=== PATIENT | female | born 1945 | race Caucasian/White ===

== ENCOUNTER 2016-06-04 09:00 | Outpatient (CLI) | payer MEDICARE | END 2016-06-04 09:01 | disposition home or self-care (01) | DX: I48.0 Paroxysmal atrial fibrillation (principal); E78.5 Hyperlipidemia, unspecified; I10 Essential (primary) hypertension; F17.200 Nicotine dependence, unspecified, uncomplicated; Z95.0 Presence of cardiac pacemaker; R60.0 Localized edema ==

== ENCOUNTER 2016-12-13 09:20 | Outpatient (CLI) | payer MEDICARE ==
[2016-12-13 12:54] LABS: ALBUMIN/GLOBULIN RATIO 0.9 (1.0-2.2); BILIRUBIN,TOTAL 0.3 mg/dL (0.2-1.0); CALCIUM 8.7 mg/dL (8.5-10.3); CREATININE 0.9 mg/dL (0.4-1.0); MAGNESIUM 2.2 mg/dL (1.7-2.8); POTASSIUM 4.2 mmol/L (3.5-5.0); TOTAL PROTEIN 7.1 g/dL (6.7-8.2)
== END 2016-12-13 09:21 | disposition home or self-care (01) ==
LOC: LAB.WCP 09:20
PROVIDERS: ATTEND Specialist
DX: R06.00 Dyspnea, unspecified (principal); E78.5 Hyperlipidemia, unspecified; F17.200 Nicotine dependence, unspecified, uncomplicated; Z95.0 Presence of cardiac pacemaker; R60.0 Localized edema; I27.2 Other secondary pulmonary hypertension; I47.2 Ventricular tachycardia
CPT/HCPCS: 36415; 80053; 83735; 84443

== ENCOUNTER 2017-01-17 13:03 | Outpatient (CLI) | payer MEDICARE | END 2017-01-17 13:04 | disposition EMS.NT | LOC: EMS 13:03 | PROVIDERS: ATTEND Surgery | DX: R19.7 Diarrhea, unspecified (principal) ==

== ENCOUNTER 2017-01-19 12:02 | Emergency (ER) | payer MEDICARE ==
[2017-01-19 14:15] LABS: BILIRUBIN,URINE NEGATIVE (NEGATIVE); PH,URINE 6.5 PH (5.0-7.5)
[2017-01-19 14:32] LABS: UA w/ MICROSCOPIC CHARGE YES
[2017-01-19 14:36] LABS: UR CULTURE IF IND NOT INDICATED
[2017-01-19] MEDS ORDERED: SODIUM CHLORIDE 0.9% 1,000 ML IV ONE (15:06)
[2017-01-19] MEDS ORDERED: SODIUM CHLORIDE FLUSH 0.9% 10 ML SYRINGE IVP ONE (15:15)
[2017-01-19 15:28] LABS: BASOPHILS % (AUTO) 0.7 %; EOSINOPHILS # (AUTO) 0.2 10^3/uL (0.0-0.7); EOSINOPHILS % (AUTO) 2.8 %; HCT - HEMATOCRIT 34.5 % (37.0-47.0); HGB - HEMOGLOBIN 11.4 g/dL (12.0-16.0); LYMPHOCYTES # (AUTO) 2.2 10^3/uL (1.5-3.5); MEAN CORPUSCULAR HEMOGLOBIN 25.4 pg (27.0-31.0); MEAN CORPUSCULAR VOLUME 76.9 fL (81.0-99.0); MEAN PLATELET VOLUME 8.1 fL (7.9-10.8); MONOCYTES # (AUTO) 0.5 10^3/uL (0.0-1.0); MONOCYTES % (AUTO) 7.5 %; NEUTROPHILS # (AUTO) 3.2 10^3/uL (1.5-6.6); RED BLOOD COUNT 4.49 10^6/uL (4.20-5.40); RED CELL DISTRIBUTION WIDTH 17.8 % (12.0-15.0); UNCORRECTED WHITE BLOOD COUNT 6.1 x10^3/uL; WHITE BLOOD COUNT 6.1 x10^3/uL (4.8-10.8)
[2017-01-19 15:37] LABS: ALBUMIN/GLOBULIN RATIO 1.1 (1.0-2.2); BILIRUBIN,TOTAL 0.4 mg/dL (0.2-1.0); CALCIUM 8.9 mg/dL (8.5-10.3); CREATININE 0.6 mg/dL (0.4-1.0); POTASSIUM 4.2 mmol/L (3.5-5.0)
[2017-01-19] MEDS ORDERED: IOPAMIDOL-300 100 ML VIAL ONE (16:55)
[2017-01-19] MEDS ORDERED: IOPAMIDOL-300 100 ML VIAL IVP ONE (17:07)
--- NOTE | 2017-01-19 17:15 | ED Physician Documentation ---
History of Present Illness - Stated complaint Stated Complaint: WEAKNESS,FEMALE - Chief complaint Chief Complaint: Abd Pain - Additonal information Additional information: hx from pt and daughter who is a nurse 71 female recently finished ab for pna - was on levaquin has been very run down since - no energy no BM for about a week eventually with daughters urging so took 3 laxatives and has resultant very large amt of diarrhea now she has not urinated in 24 hr no CRAWFORD CP cough NV no abd pain hx similar sx and was admitted and dx with ischemic bowel - did not have any pain that time either - was transferred to [facility] but did not need surgery Review of Systems Constitutional: reports: Fatigue. denies: Fever, Chills Throat: denies: Sore throat Cardiac: denies: Chest pain / pressure Respiratory: denies: Dyspnea, Cough GI: reports: Constipation, Diarrhea. 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 : None HEENT: None Psych: Depression, Bipolar disorder Musculoskeletal: None Derm: None - Past Surgical History Past Surgical History: Yes General: Appendectomy, Colonoscopy /PRESCHOOL HEAD TEACHER: section, Hysterectomy Cardiovascular: Pacemaker HEENT: Cataracts Derm: Skin grafts - Present Medications Home Medications: Ambulatory Orders Medication Instructions Recorded Confirmed Aspirin [Alireza] 325 mg ORAL DAILY 02/16/14 10/10/14 Atorvastatin [Lipitor] 80 mg ORAL DAILY 02/16/14 10/10/14 Bupropion HCl [Wellbutrin Sr] 150 mg ORAL BID 02/16/14 10/10/14 Fluticasone/Salmeterol [Advair 2 puffs INH DAILY PRN 02/16/14 10/10/14 250-50 Diskus] Lisinopril 20 mg ORAL DAILY 02/16/14 10/10/14 Nitrofurantoin Macrocrystal 50 mg ORAL DAILY 02/16/14 10/10/14 [Macrodantin] Oxybutynin [Ditropan] 10 mg ORAL DAILY 02/16/14 10/10/14 Zolpidem [Ambien] 10 mg ORAL DAILY 02/16/14 10/10/14 carBAMazepine [TEGretol] 200 mg ORAL BID 02/16/14 10/10/14 Metoprolol Tartrate 25 mg PO 01/19/17 - Allergies Allergies/Adverse Reactions: Allergies Allergy/AdvReac Type Severity Reaction Status Date / Time Sulfa (Sulfonamide AdvReac Rash Verified 01/19/17 12:12 Antibiotics) - Social History Does the pt smoke?: Yes Smoking Status: Former smoker Does the pt drink ETOH?: No Does the pt have substance abuse?: No - Immunizations Immunizations are current?: Yes - POLST Patient has POLST: Yes PD ED PE NORMAL - Vitals Vital signs reviewed: Yes - General General: Alert and oriented X 3 - HEENT HEENT: PERRL - Neck Neck: Supple, no meningeal sign - Cardiac Cardiac: RRR - Respiratory Respiratory: No respiratory distress, Clear bilaterally - Abdomen Abdomen: Soft, Non tender - Derm Derm: Normal color - Neuro Neuro: Alert and oriented X 3 Results - Vitals Vitals: Vital Signs - 24 hr 01/19/17 01/19/17 01/19/17 12:08 16:39 18:10 Temperature 36.2 C L 36.9 C Heart Rate 61 60 96 Respiratory 18 16 14 Rate Blood Pressure 159/88 H 183/78 H 160/76 H O2 Saturation 95 99 98 Oxygen O2 Source Room air - Labs Labs: Laboratory Tests 01/19/17 01/19/17 01/19/17 13:52 15:19 15:19 WBC 6.1 RBC 4.49 Hgb 11.4 L Hct 34.5 L MCV 76.9 L MCH 25.4 L MCHC 33.0 RDW 17.8 H Plt Count 201 MPV 8.1 Neut # 3.2 Lymph # 2.2 [place] # 0.5 Eos # 0.2 Baso # 0.0 Absolute Nucleated RBC 0.00 Nucleated RBCs 0.0 Sodium 137 Potassium 4.2 Chloride 102 Carbon Dioxide 28 Anion Gap 7.0 BUN 11 Creatinine 0.6 Estimated GFR (MDRD) 98 Glucose 88 Calcium 8.9 Total Bilirubin 0.4 AST 26 ALT 17 Alkaline Phosphatase 83 Troponin I Total Protein 7.0 Albumin 3.7 Globulin 3.3 Albumin/Globulin Ratio 1.1 Lipase 33 Urine Color YELLOW Urine Clarity HAZY Urine pH 6.5 Ur Specific [place] 1.010 Urine Protein NEGATIVE Urine Glucose (UA) NEGATIVE Urine Ketones NEGATIVE Urine Occult Blood TRACE-INTA Urine Nitrite NEGATIVE Urine Bilirubin NEGATIVE Urine Urobilinogen 0.2 (NORMAL) Ur Leukocyte Esterase SMALL H Urine RBC None Seen Urine WBC 6-10 H Ur Squamous Epith Cells MOD Squamous H Urine Bacteria Moderate H Ur Microscopic Review INDICATED Urine Culture Comments NOT INDICATED 01/19/17 15:19 WBC RBC Hgb Hct MCV MCH MCHC RDW Plt Count MPV Neut # Lymph # [place] # Eos # Baso # Absolute Nucleated RBC Nucleated RBCs Sodium Potassium Chloride Carbon Dioxide Anion Gap BUN Creatinine Estimated GFR (MDRD) Glucose Calcium Total Bilirubin AST ALT Alkaline Phosphatase Troponin I < 0.04 Total Protein Albumin Globulin Albumin/Globulin Ratio Lipase Urine Color Urine Clarity Urine pH Ur Specific [place] Urine Protein Urine Glucose (UA) Urine Ketones Urine Occult Blood Urine Nitrite Urine Bilirubin Urine Urobilinogen Ur Leukocyte Esterase Urine RBC Urine WBC Ur Squamous Epith Cells Urine Bacteria Ur Microscopic Review Urine Culture Comments - Rads (name of study) CTA abd pelvis Radiology: See rad report (limited by motion but no dissection AAA or ischmic bowel seen, no acute process seen) PD MEDICAL DECISION MAKING - ED course ED course: reviewed all results with pt and daughter anemia - not new better than prior chemo - nl UA - not a clean catch - doubt UTI shortly after finishing levaquin CT no bowel ischemia she may just be exhausted and deconditioned after her recent pna daughter is relieved at nl results pt just wants to go home she lives alone but daughter farshad checks on her Departure - Departure Disposition: 01 Home, Self Care Clinical Impression: Weakness Condition: Good Instructions: ED Weakness UKO Follow-Up: Favio Tierney MD [Primary Care Provider] - Comments: We reviewed your results together There is no good explanation for why you are so weak and exhausted You may just be taking a bit to recover from your recent pneumonia I think it safe for you to go home Rest and drink plenty of fluids and give yourself time to recover Please follow up with your PMD for a recheck later this week Return if worse Please get your blood pressure rechecked at that time too
--- NOTE | 2017-01-19 17:56 | CT Report ---
EXAM: CT ANGIOGRAM ABDOMEN AND PELVIS WITH CONTRAST EXAM DATE: 01/19/2017 05:21 PM. CLINICAL HISTORY: Hx ischemic bowel, similar sx. COMPARISONS: CT 10/10/2014. TECHNIQUE: Routine helical CT angiogram imaging was performed through the abdomen and pelvis in the a rterial phase. IV contrast: 100 mL Isovue 300. Enteric contrast: No. Reconstructions: Coronal, sagitt al, and 3D MIP reconstructions. In accordance with CT protocol optimization, one or more of the following dose reduction techniques w ere utilized for this exam: automated exposure control, adjustment of mA and/or KV based on patient s ize, or use of iterative reconstructive technique. FINDINGS: Examination is moderately limited by patient motion. Vasculature: No aneurysm or dissection. There is moderate atherosclerotic calcification of the aorta and its branches. There is moderate atherosclerotic calcification at the origin of the celiac axis wi th greater than 50% stenosis. The superior mesenteric artery origin and proximal few centimeters is p atent; distal SMA evaluation is limited due to patient motion. Inferior mesenteric artery origin at t he aorta is patent. Lung Bases: Normal. Abdominal Solid Organs: The liver, spleen, and adrenal glands are grossly unremarkable in appearance. The gallbladder and pancreas are not well seen due to patient motion. Extensive patient motion limit s evaluation of the kidneys; there is no hydronephrosis and no large (greater than 2 cm) cyst or mass are seen. Peritoneal Cavity: Evaluation of the bowel is extremely limited, due to combination of patient motion and lack of oral contrast. There is no bowel obstruction. No gross evidence for free intraperitoneal air. The appendix is no visualized. Pelvic Organs: The urinary bladder is unremarkable in appearance. Status post hysterectomy. Bones: Degenerative changes in the spine, worst from L3-S1. No destructive osseous lesion. Other: None. IMPRESSION: 1. No aneurysm or dissection of the abdominal aorta. Proximal portions of the celiac axis, superior m esenteric artery, and inferior mesenteric artery are patent. The distal portions of these vessels are not well visualized due to patient motion. 2. No other acute findings seen in the abdomen and pelvis, noting evaluation of many of the solid org ans and bowel is extremely limited due to patient motion. [facility] Referring Provider Line: [phone] SITE ID: [id number]
[2017-01-19 18:11] VITALS: BP 160/76
== END 2017-01-19 18:51 | disposition home or self-care (01) ==
LOC: ED 12:02
DX: R53.1 Weakness (principal); R19.7 Diarrhea, unspecified; R34 Anuria and oliguria; D64.9 Anemia, unspecified; I10 Essential (primary) hypertension; Z95.0 Presence of cardiac pacemaker; Z79.82 Long term (current) use of aspirin; Z87.891 Personal history of nicotine dependence
CPT/HCPCS: 36415; 51798; 74174; 80053; 81001; 83690; 84484; 85025; 96360; 99283; 99284; Q9967; 81003; 87086

== ENCOUNTER 2017-08-15 11:27 | Emergency (ER) | payer MEDICARE ==
[2017-08-15 12:05] LABS: BASOPHILS # (AUTO) 0.1 10^3/uL (0.0-0.1); BASOPHILS % (AUTO) 0.8 %; EOSINOPHILS # (AUTO) 0.1 10^3/uL (0.0-0.7); EOSINOPHILS % (AUTO) 1.5 %; HGB - HEMOGLOBIN 11.4 g/dL (12.0-16.0); LYMPHOCYTES # (AUTO) 1.3 10^3/uL (1.5-3.5); LYMPHOCYTES % (AUTO) 15.9 %; MEAN CORPUSCULAR HEMOGLOBIN 26.1 pg (27.0-31.0); MEAN CORPUSCULAR HGB CONC 32.8 g/dL (32.0-36.0); MEAN CORPUSCULAR VOLUME 79.6 fL (81.0-99.0); MEAN PLATELET VOLUME 7.8 fL (7.9-10.8); MONOCYTES # (AUTO) 0.6 10^3/uL (0.0-1.0); MONOCYTES % (AUTO) 7.1 %; NEUTROPHILS # (AUTO) 6.1 10^3/uL (1.5-6.6); NEUTROPHILS % (AUTO) 74.7 %; PLT - PLATELET COUNT 268 10^3/uL (130-450); RED BLOOD COUNT 4.37 10^6/uL (4.20-5.40); RED CELL DISTRIBUTION WIDTH 16.9 % (12.0-15.0); WHITE BLOOD COUNT 8.1 x10^3/uL (4.8-10.8)
[2017-08-15 12:19] LABS: ALBUMIN 3.4 g/dL (3.2-5.5); ALBUMIN/GLOBULIN RATIO 0.8 (1.0-2.2); BILIRUBIN,TOTAL 0.2 mg/dL (0.2-1.0); CALCIUM 8.7 mg/dL (8.5-10.3); CREATININE 0.8 mg/dL (0.4-1.0); TOTAL PROTEIN 7.7 g/dL (6.7-8.2)
--- NOTE | 2017-08-15 12:32 | ED Physician Documentation ---
PD HPI DYSPNEA - Stated complaint Stated Complaint: COUGH - Chief complaint Chief Complaint: Resp - History obtained from History obtained from: Patient - History of Present Illness Timing - duration: Days (2 or 3 days.) Timing - details: Still present Worsened by: Coughing Associated symptoms: Cough Similar symptoms before: Diagnosis (History of similar symptoms in the past with exacerbations of COPD and with pneumonia.) - Additional information Additional information: The patient is a 72-year-old female with history of COPD, who presents with shortness of breath that has been getting worse over the past 2 or 3 days. She reports productive cough. She denies fever or chest pain. She quit smoking cigarettes 2 months ago. In addition to COPD, she has a history of pneumonia, atrial fibrillation, sick sinus syndrome, status post pacemaker placement, bipolar disorder, and ischemic colitis. 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 : None HEENT: None Psych: Depression, Bipolar disorder Musculoskeletal: None Derm: None - Past Surgical History Past Surgical History: Yes General: Appendectomy, Colonoscopy /WIND INSTRUMENT REPAIRER: section, Hysterectomy Cardiovascular: Pacemaker HEENT: Cataracts Derm: Skin grafts - Present Medications Home Medications: Ambulatory Orders Medication Instructions Recorded Confirmed Aspirin [Alireza] 325 mg ORAL DAILY 02/16/14 10/10/14 Atorvastatin [Lipitor] 80 mg ORAL DAILY 02/16/14 10/10/14 Bupropion HCl [Wellbutrin Sr] 150 mg ORAL BID 02/16/14 10/10/14 Lisinopril 20 mg ORAL DAILY 02/16/14 10/10/14 Oxybutynin [Ditropan] 10 mg ORAL DAILY 02/16/14 10/10/14 Zolpidem [Ambien] 10 mg ORAL DAILY 02/16/14 10/10/14 carBAMazepine [TEGretol] 200 mg ORAL BID 02/16/14 10/10/14 Metoprolol Tartrate 25 mg PO 01/19/17 Azithromycin [Zithromax] 250 mg PO DAILY #6 tablet 08/15/17 Mometasone/Formoterol [Dulera 100 08/15/17 Mcg/5 Mcg Inhaler] Timolol 0.5% Ophth Drops [Timoptic 08/15/17 0.5% Ophth Drops] predniSONE [Prednisone] 30 mg PO DAILY #15 tablet 08/15/17 - Allergies Allergies/Adverse Reactions: Allergies Allergy/AdvReac Type Severity Reaction Status Date / Time Sulfa (Sulfonamide AdvReac Rash Verified 01/19/17 12:12 Antibiotics) - Social History Does the pt smoke?: No Smoking Status: Former smoker Does the pt drink ETOH?: No Does the pt have substance abuse?: No - Immunizations Immunizations are current?: Yes - POLST Patient has POLST: Yes PD ED PE NORMAL - Vitals Vital signs reviewed: Yes (borderline systolic hypertension initially.) - General General: Alert and oriented X 3, Well developed/nourished - HEENT HEENT: Atraumatic, Pharynx benign - Neck Neck: Supple, no meningeal sign, No adenopathy, No JVD - Cardiac Cardiac: RRR, No murmur - Respiratory Respiratory: Other (Diffuse expiratory wheezes with slightly prolonged expiratory phase. No rales or rhonchi.) - Abdomen Abdomen: Soft, Non tender - Back Back: No CVA TTP - Derm Derm: No rash - Extremities Extremities: No edema, No calf tenderness / cord - Neuro Neuro: Alert and oriented X 3, No motor deficit, Normal speech Results - Vitals Vitals: Vital Signs - 24 hr 08/15/17 08/15/17 08/15/17 11:30 12:52 14:22 Temperature 36.0 C L Heart Rate 78 60 60 Respiratory 24 22 18 Rate Blood Pressure 139/75 H 115/67 O2 Saturation 94 99 08/15/17 15:12 Temperature 36.9 C Heart Rate 60 Respiratory 16 Rate Blood Pressure 113/90 H O2 Saturation 98 Oxygen O2 Source Room air - EKG (time done) 12:02 Rate: Rate (enter#) (60) Rhythm: Paced (atrial paced.) [place]: Normal Ischemia: Normal ST segments, Q waves (in leads V1-V3, consistent with old anterior [place].) Compare to prior EKG: Old EKG unavailable - Labs Labs: Laboratory Tests 08/15/17 08/15/17 08/15/17 11:45 11:45 11:45 WBC 8.1 RBC 4.37 Hgb 11.4 L Hct 34.8 L MCV 79.6 L MCH 26.1 L MCHC 32.8 RDW 16.9 H Plt Count 268 MPV 7.8 L Neut # 6.1 Lymph # 1.3 L [place] # 0.6 Eos # 0.1 Baso # 0.1 Absolute Nucleated RBC 0.00 Nucleated RBC % 0.0 Sodium 134 L Potassium 4.1 Chloride 98 L Carbon Dioxide 28 Anion Gap 8.0 BUN 14 Creatinine 0.8 Estimated GFR (MDRD) 70 L Glucose 96 Calcium 8.7 Total Bilirubin 0.2 AST 27 ALT 28 Alkaline Phosphatase 78 Troponin I B-Natriuretic Peptide 280 H Total Protein 7.7 Albumin 3.4 Globulin 4.3 H Albumin/Globulin Ratio 0.8 L Lipase 29 08/15/17 11:45 WBC RBC Hgb Hct MCV MCH MCHC RDW Plt Count MPV Neut # Lymph # [place] # Eos # Baso # Absolute Nucleated RBC Nucleated RBC % Sodium Potassium Chloride Carbon Dioxide Anion Gap BUN Creatinine Estimated GFR (MDRD) Glucose Calcium Total Bilirubin AST ALT Alkaline Phosphatase Troponin I < 0.04 B-Natriuretic Peptide Total Protein Albumin Globulin Albumin/Globulin Ratio Lipase - Rads (name of study) CXR Radiology: Prelim report reviewed, EMP read contemporaneously, See rad report (1 ) Consistent with bibasilar atelectasis/infiltrates, more prominent of the lingula. 2) COPD. 3) No heart failure.) PD MEDICAL DECISION MAKING - ED course Complexity details: reviewed old records, reviewed results, re-evaluated patient , considered differential, d/w patient ED course: The patient's presentation is most consistent with acute exacerbation of COPD, with bilateral lower lobe infiltrates suggestive of pneumonia. Her presentation does not suggest an acute cardiac event, congestive heart failure, and I doubt pulmonary embolus. Treatment in the emergency department included administration of DuoNeb nebulizer, which improved her air movement. Dexamethasone 10 mg was administered orally, and Zithromax 500 mg was administered orally. She is being discharged with prescriptions for Zithromax and prednisone. I discussed with her the expected course of illness, outpatient treatment and follow-up, as well as potentially worrisome signs or symptoms that should prompt reevaluation in the emergency department. Departure - Departure Disposition: 01 Home, Self Care Clinical Impression: COPD exacerbation Dyspnea Qualifiers: Dyspnea type: shortness of breath Qualified Code(s): R06.02 - Shortness of breath Pneumonia Qualifiers: Pneumonia type: due to unspecified organism Laterality: bilateral Lung location : lower lobe of lung Qualified Code(s): J18.1 - Lobar pneumonia, unspecified organism Condition: Stable Instructions: ED COPD Flare, ED Pneumonia Adult Follow-Up: Favio Tierney MD [Provider Admit Priv/Credential] - Prescriptions: Azithromycin [Zithromax] 250 mg PO DAILY #6 tablet predniSONE [Prednisone] 30 mg PO DAILY #15 tablet Comments: Take Zithromax daily as prescribed. Take prednisone daily as prescribed. Continue using nebulizer treatments as previously prescribed. Follow up with your primary physician within 1-2 weeks. Call to schedule appointment. Return to the emergency department if you develop increasing difficulty breathing, or otherwise worsening symptoms. Discharge Date/Time: 08/15/17 15:16
--- NOTE | 2017-08-15 12:51 | XRAY Report ---
EXAM: CHEST RADIOGRAPHY EXAM DATE: 08/15/2017 12:31 PM. CLINICAL HISTORY: Cough with dyspnea. History of COPD. COMPARISON: 01/08/2017. TECHNIQUE: 2 views. FINDINGS: Lungs/Pleura: Interval hazy left basilar opacities partially obscure the left heart border. Mildly el evated left hemidiaphragm. Some crowding of right basilar lung markings with mild haziness, compatibl e with hypoventilatory change. Upper lungs are hyperinflated and grossly clear. No pneumothorax or ob vious pleural effusion. Mediastinum: No cardiomegaly. Stable left subclavian pacer. Other: Bones are demineralized. No fracture evident. IMPRESSION: 1. Consistent with bibasilar atelectasis/infiltrates, more prominent of the lingula. 2. COPD. 3. No heart failure. [facility] Referring Provider Line: [phone] SITE ID: [id number]
--- NOTE | 2017-08-15 12:51 | XRAY Preliminary Report ---
Exam: XR CHEST 2 VIEW X-RAY IMPRESSION: 1. Consistent with bibasilar atelectasis/infiltrates, more prominent of the lingula. 2. COPD. 3. No heart failure. [facility] SITE ID: [id number]
[2017-08-15] MEDS ORDERED: AZITHROMYCIN 250 MG TABLET PO STA (13:54)
[2017-08-15] MEDS ORDERED: DEXAMETHASONE 10 MG/ML VIAL PO STA (13:54)
[2017-08-15] MEDS ORDERED: IPRATROPIUM/ALBUTEROL 3 ML NEB INH STA (14:05)
[2017-08-15 15:17] VITALS: BP 113/90
== END 2017-08-15 15:16 | disposition home or self-care (01) ==
LOC: ED 11:27
DX: J18.1 Lobar pneumonia, unspecified organism (principal); J44.1 Chronic obstructive pulmonary disease with (acute) exacerbation; Z87.891 Personal history of nicotine dependence; I10 Essential (primary) hypertension; Z95.0 Presence of cardiac pacemaker; Z79.82 Long term (current) use of aspirin
CPT/HCPCS: 36415; 71046; 80053; 83690; 83880; 84484; 85025; 93005; 94640; 99283; 99284; A9270

== ENCOUNTER 2017-09-09 10:39 | Outpatient (CLI) | payer MEDICARE ==
--- NOTE | 2017-09-10 13:48 | Mammography Report ---
DIGITAL SCREENING MAMMOGRAM: 09/09/2017 CLINICAL INDICATION: A 72-year-old with family history of breast cancer for screening, history of benign biopsy. COMPARISON: 05/2015, 11/2013, 10/2012, 09/2011, 09/2010. TECHNIQUE: Routine CC and MLO projections were obtained of the breasts. FINDINGS: The breasts demonstrate scattered fibroglandular densities bilaterally. Coarse and punctate, typically benign calcifications are present. Post-biopsy changes in the left upper outer central breast are stable. No suspicious masses, clustered microcalcifications, or regions of architectural distortion are identified. IMPRESSION: BENIGN FINDINGS. RECOMMENDATION: Routine annual screening unless otherwise clinically indicated. BI-RADS CATEGORY 2 - BENIGN FINDING. STANDARD QUALIFYING STATEMENTS: 1. This examination was reviewed with the aid of Computer-Aided Detection (CAD). 2. A negative or benign imaging report should not delay biopsy if clinically suspicious findings are present. Consider surgical consultation if warranted. More than 5% of cancers are not identified by imaging. 3. Dense breasts may obscure an underlying neoplasm. TD: 09/10/2017 13:47
== END 2017-09-09 10:40 | disposition home or self-care (01) ==
LOC: DI.N 10:39
PROVIDERS: ATTEND Family Medicine
DX: Z12.31 Encounter for screening mammogram for malignant neoplasm of breast (principal); Z80.3 Family history of malignant neoplasm of breast
CPT/HCPCS: 77067

== ENCOUNTER 2017-09-22 17:51 | Outpatient (CLI) | payer MEDICARE ==
[2017-09-22 18:40] LABS: BASOPHILS # (AUTO) 0.1 10^3/uL (0.0-0.1); BASOPHILS % (AUTO) 0.6 %; EOSINOPHILS % (AUTO) 0.4 %; LYMPHOCYTES # (AUTO) 1.3 10^3/uL (1.5-3.5); LYMPHOCYTES % (AUTO) 11.6 %; MEAN CORPUSCULAR HEMOGLOBIN 26.1 pg (27.0-31.0); MEAN CORPUSCULAR HGB CONC 32.5 g/dL (32.0-36.0); MEAN CORPUSCULAR VOLUME 80.1 fL (81.0-99.0); MEAN PLATELET VOLUME 7.7 fL (7.9-10.8); MONOCYTES # (AUTO) 0.5 10^3/uL (0.0-1.0); MONOCYTES % (AUTO) 4.9 %; NEUTROPHILS # (AUTO) 9.1 10^3/uL (1.5-6.6); NEUTROPHILS % (AUTO) 82.5 %; PLT - PLATELET COUNT 235 10^3/uL (130-450); RED BLOOD COUNT 4.61 10^6/uL (4.20-5.40)
--- NOTE | 2017-09-22 18:52 | XRAY Report ---
EXAM: ABDOMEN RADIOGRAPHY EXAM DATE: 09/22/2017 06:23 PM. CLINICAL HISTORY: MENTAL STATUS CHANGE,DEMENTIA,SENILE,/CONSTIPATION. COMPARISON: CT 01/19/2017. TECHNIQUE: 1 view. FINDINGS: Bowel Gas Pattern: There is a mild to moderate amount of stool in the colon. No dilated bowel loops o r visualized transition zone. Other: There is moderate calcification of the abdominal aorta. There is degenerative disease and scol iotic curvature of the lumbar spine. Pacemaker leads overlie right atrium and right ventricle. IMPRESSION: Mild constipation without dilated loops or mechanical obstruction. [facility] Referring Provider Line: [phone] SITE ID: [id number]
--- NOTE | 2017-09-22 18:52 | XRAY Preliminary Report ---
Exam: XR ABDOMEN 1 VIEW X-RAY IMPRESSION: Mild constipation without dilated loops or mechanical obstruction. [facility] SITE ID: [id number]
--- NOTE | 2017-09-22 18:53 | CT Report ---
EXAM: CT HEAD EXAM DATE: 09/22/2017 06:07 PM. CLINICAL HISTORY: MENTAL STATUS CHANGE,DEMENTIA,SENILE,MUSCLE WEAKNESS. COMPARISON: None available at time of dictation. TECHNIQUE: Multiaxial CT images were obtained from the foramen magnum to the vertex. Reformats: Coron al. IV contrast: None. In accordance with CT protocol optimization, one or more of the following dose reduction techniques w ere utilized for this exam: automated exposure control, adjustment of mA and/or KV based on patient s ize, or use of iterative reconstructive technique. FINDINGS: Parenchyma: There is decreased density of cortex and white matter with decreased العلي-white matter di fferentiation in the left occipital lobe, new since 10/10/2014. There is no positive mass effect or m idline shift. Negative for acute intracranial hemorrhage. There is generalized mild. Ventricular whit e matter hypodensity. Extraaxial Spaces: No subdural or epidural collections identified. Ventricles: Normal in size and position. Sinuses and Orbits: Imaged paranasal sinuses, orbits, and mastoids show no significant abnormality. Bones: No evidence of fracture or calvarial defect. Other: None. IMPRESSION: 1. New left occipital lobe hypodensity, raising suspicion for subacute infarct. No hemorrhage or mass effect. [facility] The call report notification system was initiated by Dr. Hubert Moody at 18:42 hrs on 8. The above findings were discussed with Dr. Oriana Dr by Dr. Hubert Moody at 18:51 hrs on . Referring Provider Line: [phone] SITE ID: [id number]
[2017-09-22 18:54] LABS: ALBUMIN 3.7 g/dL (3.2-5.5); BILIRUBIN,TOTAL 0.4 mg/dL (0.2-1.0); CALCIUM 8.7 mg/dL (8.5-10.3); CREATININE 0.8 mg/dL (0.4-1.0); TOTAL PROTEIN 7.5 g/dL (6.7-8.2)
== END 2017-09-22 17:52 | disposition home or self-care (01) ==
LOC: DI 17:51
PROVIDERS: ATTEND Family Medicine
DX: F03.90 Unspecified dementia, unspecified severity, without behavioral disturbance, psychotic disturbance, mood disturbance, and anxiety (principal); R41.82 Altered mental status, unspecified; K59.00 Constipation, unspecified; M62.81 Muscle weakness (generalized); I48.91 Unspecified atrial fibrillation
CPT/HCPCS: 36415; 70450; 74018; 80053; 84443; 85025

== ENCOUNTER 2017-10-12 09:41 | Outpatient (CLI) | payer MEDICARE ==
[2017-10-13] MEDS ORDERED: IOPAMIDOL-300 50 ML VIAL ONE (15:58)
== END 2017-10-12 09:42 | disposition critical access hospital (66) ==
LOC: EMS 09:41
PROVIDERS: ATTEND Surgery
DX: R11.2 Nausea with vomiting, unspecified (principal); R53.1 Weakness
CPT/HCPCS: A0425; A0427

== ENCOUNTER 2017-10-12 10:04 | Inpatient (IN) | payer MEDICARE ==
--- NOTE | 2017-10-12 11:00 | ED Physician Documentation ---
PD HPI NVD - Stated complaint Stated Complaint: BODY ACHES/WEAK - Chief complaint Chief Complaint: General - History obtained from History obtained from: Patient, EMS, Caregiver - History of Present Illness Timing - onset: Today, Yesterday Timing - duration: Days (1) Timing - details: Abrupt onset (Onset of generalized weakness, inability to walk , less interactive. She has had nausea and repetitive vomiting through the morning. She is having lower abdominal pain. She had not had a bowel movement in a couple of days. Her daughter thought she might have constipation with the pain and vomiting. She was unable to stand and walk on her own and requires assistance. She was brought to the ER for evaluation.) Associated symptoms: Abdominal pain (lower), Loss of appetite. No: Fever, Melena, Weight loss, Dysuria Contributing factors: No: Sick contact, Bad food, Travel Similar symptoms before: Diagnosis (Has had lower belly pain before with constipation. No history of diverticulitis. She has not had vomiting episodes in the past.) Recently seen: Clinic (She had some confusion and altered mentation of forgetfulness and memory problems acutely about a month ago. She was seen in the office and had an outpatient CT which diagnosed a left occipital lobe small stroke. This was on 09/22/2017. The patient had been doing pretty well though after that in aside from short-term memory issues.) Review of Systems Constitutional: denies: Fever, Myalgias Nose: denies: Rhinorrhea / runny nose, Congestion Throat: denies: Sore throat Cardiac: denies: Chest pain / pressure Respiratory: reports: Cough. denies: Dyspnea GI: reports: Abdominal Pain (lower), Nausea, Vomiting, Constipation (for 2-3 days no BMs). denies: Diarrhea, Hematemesis, Bloody / black stool : denies: Dysuria, Frequency Skin: denies: Rash, Lesions Neurologic: reports: Generalized weakness. denies: Focal weakness, Numbness, Near syncope, Altered mental status, Headache, Head injury Endocrine: denies: Weight loss Immunocompromised: denies: Immunocompromised PD PAST MEDICAL HISTORY - Past Medical History Past Medical History: Yes Cardiovascular: Hypertension, High cholesterol, Other Respiratory: COPD Endocrine/Autoimmune: None GI: None [employer]ER: None : None HEENT: None Psych: Depression, Bipolar disorder Musculoskeletal: None Derm: None - Past Surgical History Past Surgical History: Yes General: Appendectomy, Colonoscopy /[employer]ER: section, Hysterectomy Cardiovascular: Pacemaker HEENT: Cataracts Derm: Skin grafts - Present Medications Home Medications: Ambulatory Orders Medication Instructions Recorded Confirmed Aspirin [Alireza] 325 mg ORAL DAILY 02/16/14 10/10/14 Atorvastatin [Lipitor] 80 mg ORAL DAILY 02/16/14 10/10/14 Bupropion HCl [Wellbutrin Sr] 150 mg ORAL BID 02/16/14 10/10/14 Lisinopril 20 mg ORAL DAILY 02/16/14 10/10/14 Oxybutynin [Ditropan] 10 mg ORAL DAILY 02/16/14 10/10/14 Zolpidem [Ambien] 10 mg ORAL DAILY 02/16/14 10/10/14 carBAMazepine [TEGretol] 200 mg ORAL BID 02/16/14 10/10/14 Metoprolol Tartrate 25 mg PO 01/19/17 Azithromycin [Zithromax] 250 mg PO DAILY #6 tablet 08/15/17 Mometasone/Formoterol [Dulera 100 08/15/17 Mcg/5 Mcg Inhaler] Timolol 0.5% Ophth Drops [Timoptic 08/15/17 0.5% Ophth Drops] predniSONE [Prednisone] 30 mg PO DAILY #15 tablet 08/15/17 - Allergies Allergies/Adverse Reactions: Allergies Allergy/AdvReac Type Severity Reaction Status Date / Time Sulfa (Sulfonamide AdvReac Rash Verified 01/19/17 12:12 Antibiotics) - Social History Does the pt smoke?: No Smoking Status: Never smoker Does the pt drink ETOH?: No Does the pt have substance abuse?: No - Family History Family history: reports: Non contributory - Immunizations Immunizations are current?: Yes - POLST Patient has POLST: Yes PD ED PE NORMAL - Vitals Vital signs reviewed: Yes - General General: No acute distress, Well developed/nourished. No: Alert and oriented X 3 (person and place, not sure of time. She is alert and attentive. ) - HEENT HEENT: Atraumatic, Moist mucous membranes, Pharynx benign - Neck Neck: Supple, no meningeal sign, No adenopathy - Cardiac Cardiac: RRR, No murmur - Respiratory Respiratory: Clear bilaterally - Abdomen Abdomen: Normal bowel sounds, Soft, Non tender, Non distended - Female Female : Deferred - Rectal Rectal: Deferred - Back Back: No CVA TTP - Derm Derm: Normal color, Warm and dry - Extremities Extremities: No deformity, No tenderness to palpate, Normal ROM s pain, No edema , No calf tenderness / cord - Neuro Neuro: manager code 2-12 intact, No motor deficit, No sensory deficit, Normal speech, Other (poor short term memory. She needed help getting to bedside commode. ) Eye Opening: Spontaneous Motor: Obeys Commands Verbal: Oriented GCS Score: 15 - Psych Psych: Normal mood, Normal affect Results - Vitals Vitals: Vital Signs - 24 hr 10/12/17 10:11 Temperature 35.8 C L Heart Rate 59 L Respiratory 14 Rate Blood Pressure 179/99 H O2 Saturation 95 Oxygen O2 Source Room air - Labs Labs: Laboratory Tests 10/12/17 10/12/17 10/12/17 11:39 11:39 11:39 WBC 9.2 RBC 4.61 Hgb 11.9 L Hct 37.5 MCV 81.3 MCH 25.9 L MCHC 31.8 L RDW 15.9 H Plt Count 222 MPV 7.7 L Neut # (Auto) 7.4 H Lymph # (Auto) 1.3 L Greene # (Auto) 0.3 Eos # (Auto) 0.1 Baso # (Auto) 0.0 Absolute Nucleated RBC 0.00 Nucleated RBC % 0.0 Sodium 132 L Potassium 4.1 Chloride 98 L Carbon Dioxide 28 Anion Gap 6.0 BUN 15 Creatinine 0.8 Estimated GFR (MDRD) 70 L Glucose 122 H Lactic Acid 0.8 Calcium 8.7 Magnesium 2.0 Total Bilirubin 0.4 AST 29 ALT 28 Alkaline Phosphatase 90 Troponin I Total Protein 7.6 Albumin 3.4 Globulin 4.2 Albumin/Globulin Ratio 0.8 L Lipase 28 Urine Color Urine Clarity Urine pH Ur Specific [place] Urine Protein Urine Glucose (UA) Urine Ketones Urine Occult Blood Urine Nitrite Urine Bilirubin Urine Urobilinogen Ur Leukocyte Esterase Urine RBC Urine WBC Urine WBC Clumps Ur Epithelial Cells Ur Squamous Epith Cells Urine Bacteria Ur Microscopic Review Urine Culture Comments 10/12/17 10/12/17 11:39 13:07 WBC RBC Hgb Hct MCV MCH MCHC RDW Plt Count MPV Neut # (Auto) Lymph # (Auto) Greene # (Auto) Eos # (Auto) Baso # (Auto) Absolute Nucleated RBC Nucleated RBC % Sodium Potassium Chloride Carbon Dioxide Anion Gap BUN Creatinine Estimated GFR (MDRD) Glucose Lactic Acid Calcium Magnesium Total Bilirubin AST ALT Alkaline Phosphatase Troponin I < 0.04 Total Protein Albumin Globulin Albumin/Globulin Ratio Lipase Urine Color YELLOW Urine Clarity CLOUDY Urine pH 6.5 Ur Specific [place] 1.010 Urine Protein NEGATIVE Urine Glucose (UA) NEGATIVE Urine Ketones NEGATIVE Urine Occult Blood SMALL H Urine Nitrite NEGATIVE Urine Bilirubin NEGATIVE Urine Urobilinogen 0.2 (NORMAL) Ur Leukocyte Esterase LARGE H Urine RBC 6-10 H Urine WBC >25 H Urine WBC Clumps PRESENT Ur Epithelial Cells FEW Renal Tubular Ur Squamous Epith Cells MANY Squamous H Urine Bacteria Many H Ur Microscopic Review INDICATED Urine Culture Comments NOT INDICATED - Rads (name of study) abd CT Radiology: Prelim report reviewed (no diverticulitis, no acute process to support cause of the pain. ), EMP read contemporaneously PD MEDICAL DECISION MAKING - ED course Complexity details: reviewed results (No diverticulitis or other acute process in the abdominal CT. Your urine analysis does show a UTI apparently. Her labs do not suggest sepsis. She is having still lower abdominal pain though it is improved. She is still having nausea despite a couple of doses of antiemetics. Will give another dose IV as well. She has general weakness and is having difficulty just at the bedside commode. She seems to ill for going home though a not sure if the urinary tract infection is the sole process. Her head CT does not show any acute process. Her chest x-ray is clear. No other apparent acute process. I talked with the hospitalist who agreed to have the patient in the hospital for further evaluation and also for antibiotic treatment for the UTI as well as medication for the ongoing nausea and IV fluids.), re-evaluated patient (After IV fluids and antiemetics, patient still with some nausea, had dry heaving with PO fluid attempt. Required some help getting to bedside commode. Daughter states this is unusual for her abruptly today. UA showing apparent UTI. Labs do not support issue of sepsis. ), d/w patient, d/w family ( daughter) - Sepsis Event Vital Signs: Vital Signs - 24 hr 10/12/17 10:11 Temperature 35.8 C L Heart Rate 59 L Respiratory 14 Rate Blood Pressure 179/99 H O2 Saturation 95 Oxygen O2 Source Room air Departure - Departure Disposition: [facility] DC/Xfer Clinical Impression: Generalized weakness Nausea and vomiting Qualifiers: Vomiting type: unspecified Vomiting Intractability: non-intractable Qualified Code(s): R11.2 - Nausea with vomiting, unspecified UTI (urinary tract infection) Qualifiers: Urinary tract infection type: acute cystitis Hematuria presence: without hematuria Qualified Code(s): N30.00 - Acute cystitis without hematuria Condition: Stable
[2017-10-12] MEDS ORDERED: SODIUM CHLORIDE 0.9% 1,000 ML IV ONE ×2 (11:17→13:54)
[2017-10-12] MEDS ORDERED: ONDANSETRON 4 MG/2 ML VIAL IVP STA ×2 (11:17→12:27)
[2017-10-12] MEDS ORDERED: ACETAMINOPHEN 1,000 MG/100 ML 100 ML IV STA (11:19)
[2017-10-12] MEDS ORDERED: DOCUSATE SODIUM 100 MG CAPSULE PO STA (11:19)
[2017-10-12] MEDS ORDERED: IOPAMIDOL-300 100 ML VIAL ONE (11:36)
[2017-10-12 11:45] LABS: BASOPHILS % (AUTO) 0.5 %; EOSINOPHILS # (AUTO) 0.1 10^3/uL (0.0-0.7); EOSINOPHILS % (AUTO) 1.2 %; HGB - HEMOGLOBIN 11.9 g/dL (12.0-16.0); LYMPHOCYTES # (AUTO) 1.3 10^3/uL (1.5-3.5); LYMPHOCYTES % (AUTO) 13.7 %; MEAN CORPUSCULAR HEMOGLOBIN 25.9 pg (27.0-31.0); MEAN CORPUSCULAR HGB CONC 31.8 g/dL (32.0-36.0); MEAN CORPUSCULAR VOLUME 81.3 fL (81.0-99.0); MEAN PLATELET VOLUME 7.7 fL (7.9-10.8); MONOCYTES # (AUTO) 0.3 10^3/uL (0.0-1.0); MONOCYTES % (AUTO) 3.5 %; NEUTROPHILS # (AUTO) 7.4 10^3/uL (1.5-6.6); NEUTROPHILS % (AUTO) 81.1 %; PLT - PLATELET COUNT 222 10^3/uL (130-450); RED BLOOD COUNT 4.61 10^6/uL (4.20-5.40); RED CELL DISTRIBUTION WIDTH 15.9 % (12.0-15.0); WHITE BLOOD COUNT 9.2 x10^3/uL (4.8-10.8)
[2017-10-12 11:59] LABS: ALBUMIN 3.4 g/dL (3.2-5.5); ALBUMIN/GLOBULIN RATIO 0.8 (1.0-2.2); BILIRUBIN,TOTAL 0.4 mg/dL (0.2-1.0); CALCIUM 8.7 mg/dL (8.5-10.3); CREATININE 0.8 mg/dL (0.4-1.0); TOTAL PROTEIN 7.6 g/dL (6.7-8.2)
[2017-10-12] MEDS: IOPAMIDOL-300 100 ML VIAL IVP ONE (12:55)
--- NOTE | 2017-10-12 13:05 | XRAY Preliminary Report ---
Exam: XR CHEST 2 VIEW X-RAY IMPRESSION: 1. Stable left basilar/lingular opacity - possible atelectasis. 2. Hyperinflation consistent with underlying emphysema. [facility] SITE ID: [id number]
--- NOTE | 2017-10-12 13:11 | CT Report ---
EXAM: CT ABDOMEN AND PELVIS EXAM DATE: 10/12/2017 12:55 PM. CLINICAL HISTORY: Left abd pain and vomiting. COMPARISONS: 01/19/2017. TECHNIQUE: Routine helical CT imaging was performed through the abdomen and pelvis. IV contrast: 100 cc Isovue-300 IV. Enteric contrast: No. Reconstructions: Coronal and sagittal. In accordance with CT protocol optimization, one or more of the following dose reduction techniques w ere utilized for this exam: automated exposure control, adjustment of mA and/or KV based on patient s ize, or use of iterative reconstructive technique. FINDINGS: Lung Bases: There is basilar dependent atelectasis. Liver: The liver is normal in size and contour. There is a geographic region of hyperenhancement in t he posterior right lobe of the liver measuring 3.7 x 2.3 cm in size. No biliary dilatation. Liver ves sels are patent. Gallbladder/Bile Ducts: Unremarkable. Spleen: Normal. Pancreas: Normal. Adrenal Glands: Normal. Kidneys: Normal. No masses or hydronephrosis. Peritoneal Cavity/Bowel: No dilated bowel or findings of mechanical bowel obstruction. There is no ab normal fluid or gas collection. Negative for lymphadenopathy. The appendix is well visualized and nor mal. Pelvic Organs: Uterus is nonvisualized. Urinary bladder appears unremarkable. Vasculature: There is moderate calcification abdominal aorta and iliac arteries without aneurysm. Bones: No significant abnormality. Other: None. IMPRESSION: 1. No localizing a acute inflammatory process. No CT finding to explain abdominal pain symptoms. 2. Geographic hyperenhancement of the right lobe of the liver is most suggestive of transient hepatic attenuation difference. 3. Atherosclerotic vascular disease without aneurysm. [facility] Referring Provider Line: [phone] SITE ID: [id number]
[2017-10-12 13:16] LABS: BILIRUBIN,URINE NEGATIVE (NEGATIVE); CLARITY,URINE CLOUDY (CLEAR); GLUCOSE, URINE (UA) NEGATIVE (NEGATIVE); KETONES,URINE (UA) NEGATIVE (NEGATIVE); LEUKOCYTE ESTERASE, URINE LARGE (NEGATIVE); NITRITE,URINE NEGATIVE (NEGATIVE); OCCULT BLOOD,URINE SMALL (NEGATIVE); PH,URINE 6.5 PH (5.0-7.5); PROTEIN,URINE NEGATIVE (NEGATIVE); UROBILINOGEN,URINE 0.2 (NORMAL) E.U./dL (NORMAL)
[2017-10-12 13:24] LABS: BACTERIA,URINE Many /HPF (None Seen); EPITHELIAL CELLS,UR FEW Renal Tubular /HPF (<= Few); SQUAMOUS EPITHELIAL CELL,UR MANY Squamous (<= Few); WBC CLUMPS,URINE PRESENT
[2017-10-12] MEDS ORDERED: cefTRIAXone 1 GM in SODIUM CHLORIDE 0.9% MINIBAG 100 ML IV STA (13:33)
--- NOTE | 2017-10-12 13:37 | XRAY Report ---
EXAM: CHEST RADIOGRAPHY EXAM DATE: 10/12/2017 12:38 PM. CLINICAL HISTORY: Chest pain. COMPARISON: 08/15/2017. TECHNIQUE: 2 views. FINDINGS: Lungs/Pleura: The lungs are again noted to be hyperinflated. Persistent left lingular and basilar opa cities may represent atelectasis. No pneumothorax or pleural effusion. Mediastinum: Heart and mediastinal contours are unremarkable. Stable left subclavian pacer. Other: Intact osseous structures. IMPRESSION: 1. Stable left basilar/lingular opacities - possible atelectasis. 2. Hyperinflation consistent with underlying emphysema. [facility] Referring Provider Line: [phone] SITE ID: [id number]
[2017-10-12] MEDS ORDERED: METOCLOPRAMIDE 10 MG/2 ML VIAL IVP STA (13:57)
--- NOTE | 2017-10-12 14:48 | CT Report ---
EXAM: CT HEAD EXAM DATE: 10/12/2017 02:33 PM. CLINICAL HISTORY: Weakness and off balance. COMPARISON: 09/22/2017. TECHNIQUE: Multiaxial CT images were obtained from the foramen magnum to the vertex. Reformats: Coron al. IV contrast: None. In accordance with CT protocol optimization, one or more of the following dose reduction techniques w ere utilized for this exam: automated exposure control, adjustment of mA and/or KV based on patient s ize, or use of iterative reconstructive technique. FINDINGS: Parenchyma: There is decreased attenuation in the left occipital lobe. There is no evidence of acute intracranial hemorrhage. No midline shift or mass effect. Extraaxial Spaces: No subdural or epidural collections identified. Ventricles: Normal in size and position. Sinuses and Orbits: Imaged paranasal sinuses, orbits, and mastoids show no significant abnormality. Bones: No evidence of fracture or calvarial defect. Other: None. IMPRESSION: 1. Hypodensity in the left occipital lobe, similar to 09/22/2017, suspicious for subacute infarct, no t excluding artifact. 2. No hemorrhage or mass effect. [facility] Referring Provider Line: [phone] SITE ID: [id number]
[2017-10-12] MEDS ORDERED: SODIUM CHLORIDE FLUSH 0.9% 10 ML SYRINGE IVP PRN (14:56)
--- NOTE | 2017-10-12 15:10 | HISTORY & PHYSICAL EXAMINATION ---
Chief Complaint - Chief Complaint Chief Complaint: AMS, UTI History of Present Illness - Admitted From Admitted From:: ED - History Obtained From Records Reviewed: yes History obtained from: chart review, daughter, patient. Exam Limitations: none - History of Present Illness HPI Comment/Other: Vivi Yanez is an ill-appearing 72-year old female with a past medical history of pacemaker implant, CVA, hypertension, hyperlipidemia, COPD, history of tobacco dependence, depression, bipolar disorder, and urinary incontinence. The patient was brought to the ED from [facility] after being found this morning with an inability to walk, less interactive and nausea with cyclical vomiting. Once in the ED a urine sample was obtained and shows a UTI, an elevated B/P of 179/99, low sodium at 132, GFR of 70, a normal WBC count and no other abnormalities. Even after being in the ED for some time, she continued with ataxia, weakness, and slow mentation. According to her daughter , Kiersten, she has had a profound change in mental status that has been getting worse. The patient denies recent falls, shortness of breath, chest pain, or a new cough. She will be admitted for treatment of her UTI, further syncope work up with PT evaluation. 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: Other (hysterectomy) : reports: Incontinence, Nocturia, Frequency HEENT: reports: Chronic vision loss, Chronic sinusitis Psych: reports: Depression, Bipolar disorder Musculoskeletal: reports: Fatigue Derm: reports: None MRSA Hx?: No - Past Surgical History General: reports: Appendectomy, Colonoscopy /AUTOMOBILE GLASS TECHNICIAN: reports: section, Hysterectomy Cardiovascular: reports: Pacemaker HEENT: reports: Cataracts Derm: reports: Skin grafts - Family & Social History Family History: Mother: , CAD, Diabetes, Type 2, Father: , CAD, Sister: , CAD, Cancer, Renal Disease/Failure, Brother: CAD, Cancer Family History Comment/Other: The patient's mother had heart disease and DM, father had stomach ulcers and cardiac disease. The patient had 2 brothers with lung cancer, heart disease and DM, she had one sister with DM, breast CA and renal insufficiency and one living sister who has heart disease. Living arrangement: Assisted living ([facility]) Living Situation: With caregiver(s) Social History Notes: The patient [place] lived [place] the [place] for 19 years. She has 2 biological children, Kiersten lives near and a son who lives near [place]. 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 She enjoys playing [employer], her grand children and going to pentecostalism. She was living in a trailer in [place], but began to decline, and now lives at [facility] assisted living. She admits to a life long history of tobacco dependence, but stopped about 3 years ago. She denies illicit drug or alcohol use. She wishes to be a FULL code. - Substance History Use: Uses substance without health or social issues: NONE Abuse: Recurrent use of substance despite neg consequences: NONE Dependence: Experiences withdrawal or developed tolerances: NONE - POLST Patient has POLST: Yes POLST Status: Full Code Meds/Allgy - Home Medications Home Medications: Ambulatory Orders Medication Instructions Recorded Confirmed Atorvastatin [Lipitor] 80 mg ORAL DAILY 02/16/14 10/12/17 Lisinopril 20 mg ORAL DAILY 02/16/14 10/12/17 Zolpidem [Ambien] 10 mg ORAL QPM PRN 02/16/14 10/12/17 Metoprolol Tartrate 25 mg PO BID 01/19/17 10/12/17 Mometasone/Formoterol [Dulera 100 2 puffs INH BID 08/15/17 10/12/17 Mcg/5 Mcg Inhaler] Timolol 0.5% Ophth Drops [Timoptic 1 drops RIGHTEYE BID 08/15/17 10/12/17 0.5% Ophth Drops] Albuterol Sulfate [Proair Hfa 2 puffs INH Q4H PRN 10/12/17 10/12/17 Inhaler] Aspirin 81 mg PO DAILY 10/12/17 10/12/17 Bupropion HCl [Bupropion HCl Sr] 150 mg PO Q12H 10/12/17 10/12/17 Carbamazepine 200 mg PO BID 10/12/17 10/12/17 Dextromethorphan HBr [Tussin Cough] 10 ml PO Q6H PRN 10/12/17 10/12/17 Docusate Sodium 100 mg PO DAILY 10/12/17 10/12/17 Ibuprofen 200 mg PO Q4H PRN 10/12/17 10/12/17 Ibuprofen 400 mg PO Q4H PRN MDD 1200 MG 10/12/17 10/12/17 Ipratropium/Albuterol [Duoneb] 3 ml INH QID PRN 10/12/17 10/12/17 Latanoprost 0.005% Ophth Drops 1 drops EACHEYE QPM 10/12/17 10/12/17 [Xalatan Ophth Drops] Multivitamin [Theragran] 1 tab PO DAILY 10/12/17 10/12/17 Oxybutynin Chloride [Ditropan Xl] 10 mg PO DAILY 10/12/17 10/12/17 - Allergies Allergies/Adverse Reactions: Allergies Allergy/AdvReac Type Severity Reaction Status Date / Time Sulfa (Sulfonamide AdvReac Rash Verified 01/19/17 12:12 Antibiotics) Review of Systems - Constitutional Constitutional: reports: Fatigue, Poor appetite - Eyes Eyes: reports: Vision loss, Corrective lenses - Cardiovascular Cariovascular: reports: Lightheadedness, Decr. exercise tolerance - Respiratory Respiratory: reports: Cough (patient states that she has had a "smoker cough".) , SOB with exertion - Gastrointestinal Gastrointestinal: reports: Nausea, Vomiting, Reflux/heartburn, Poor appetite - Genitourinary Genitourinary: reports: Dysuria, Frequency, Incontinence, Nocturia - Musculoskeletal Musculoskeletal: reports: Muscle aches, Stiffness - Integumentary Integumentary: reports: Dryness - Psychiatric Psychiatric: reports: Depression, Other (bipolar disorder) - Hematologic/Lymphatic Hematologic/Lymphatic: reports: Recurrent infections - All Other Systems All Other Systems: reports: Reviewed and negative Exam - Vital Signs Reviewed Vital Signs: Yes Vital Signs: Vital Signs x48h Temp Pulse Resp BP Pulse Ox 10/12/17 10:11 35.8 C L 59 L 14 179/99 H 95 - Physical Exam General Appearance: positive: Alert, Moderate distress Eyes Bilateral: positive: Normal inspection, Other (pale icterus bilaterally.) ENT: positive: ENT inspection nml, Pharynx nml, Pharyngeal erythema, Dry mucous membranes Neck: positive: Nml inspection, Thyroid nml, No JVD, Trachea midline, Lymphadenopathy (R), Lymphadenopathy (L), Stiff neck Respiratory: positive: Chest non-tender, No respiratory distress, Other ( diminished bilaterally) Cardiovascular: positive: Irregularly irregular, Systolic murmur, Decreased pulse(s) Peripheral Pulses: positive: 2+ Abdomen: positive: Non-tender, Nml bowel sounds, Other (rounded, soft) Back: positive: Nml inspection Skin: positive: No rash, Warm, Dry, Pallor Extremities: positive: Non-tender, Pedal edema, Joint swelling Neurologic/Psychiatric: positive: Oriented x3, Motor nml, Sensation nml, Weakness, Slurred/abnml speech, Depressed mood/affect Reflexes: Bicep (R): 2+, Bicep (L): 2+, Ankle (R): 2+, Ankle (L): 2+ Conclusion/Plan - Problem List (1) Cerebrovascular accident (CVA) due to embolism of posterior cerebral artery with infarctions of both occipital lobes Conclusion/Plan: This was first discovered on09/22/17 in the ED, and the patient was sent back to [facility]. Upon preliminary imaging today, the patient has had a possible subacute additional infarct to the same region. Plan: Will order a CTA head, carotid dopplers, echo, and continue syncope work up. (2) Nausea and vomiting Conclusion/Plan: The patient was noted to have cyclical vomiting while at [facility] per staff report this morning. She still continues with nausea, but is tolerating some food shortly after arriving on the nursing unit. Plan: Continue to monitor and give anti-emetics as needed. Qualifiers: Vomiting type: unspecified Vomiting Intractability: non-intractable Qualified Code(s): R11.2 - Nausea with vomiting, unspecified (3) UTI (urinary tract infection) Conclusion/Plan: A UA was obtained in the ED that show a UTI, cultures are pending. She does have mild confusion and overall weakness. She is prescribed oxybutynin. She denies symptoms, but her daughter states that she saw pink urine on her mother' s depends while in the ED. Plan: Treat with IV antibiotics and encourage fluids. Qualifiers: Urinary tract infection type: acute cystitis Hematuria presence: without hematuria Qualified Code(s): N30.00 - Acute cystitis without hematuria (4) Weakness Conclusion/Plan: The patient has had an overall decline from previous baseline, which has become worse in the past month. She suffered a left occipital infarct on 09/22/17, when a CT of her head was completed in the ED to confirm this. Her last fall is thought to be in February of 2017. She has also had a decline in her short term memory function, but is accurate in her orientation upon admission exam. Plan: continue to monitor for increased weakness and any changes in mental status. (6) Cardiac pacemaker Conclusion/Plan: The patient had a pacemaker battery change on 09/25/17 and remains with a open to air incision to her left chest. This is considered to be without complications. She remains on a beta jacey, but temporarily on hold given her subacute brain infarct. Plan: Continue to monitor on telemetry over night and plan for an echocardiogram in the AM. - Lab Results Lab results reviewed: Yes Fish Bones: 10/12/17 11:39 10/12/17 11:39 - Diagnostic Imaging Results Diagnostic Imaging Results: positive: Prelim report reviewed, Final report reviewed Diagnostic Imaging Results Comments: EXAM: CT HEAD EXAM DATE: 10/12/2017 02:33 PM. CLINICAL HISTORY: Weakness and off balance. COMPARISON: 09/22/2017. TECHNIQUE: Multiaxial CT images were obtained from the foramen magnum to the vertex. Reformats: Coronal. IV contrast: None. In accordance with CT protocol optimization, one or more of the following dose reduction techniques were utilized for this exam: automated exposure control, adjustment of mA and/or KV based on patient size, or use of iterative reconstructive technique. FINDINGS: Parenchyma: There is decreased attenuation in the left occipital lobe. There is no evidence of acute intracranial hemorrhage. No midline shift or mass effect. Extraaxial Spaces: No subdural or epidural collections identified. Ventricles: Normal in size and position. Sinuses and Orbits: Imaged paranasal sinuses, orbits, and mastoids show no significant abnormality. Bones: No evidence of fracture or calvarial defect. Other: None. IMPRESSION: 1. Hypodensity in the left occipital lobe, similar to 09/22/2017, suspicious for subacute infarct, not excluding artifact. 2. No hemorrhage or mass effect. EXAM: CT ABDOMEN AND PELVIS EXAM DATE: 10/12/2017 12:55 PM. CLINICAL HISTORY: Left abd pain and vomiting. COMPARISONS: 01/19/2017. TECHNIQUE: Routine helical CT imaging was performed through the abdomen and pelvis. IV contrast: 100 cc Isovue-300 IV. Enteric contrast: No. Reconstructions : Coronal and sagittal. In accordance with CT protocol optimization, one or more of the following dose reduction techniques were utilized for this exam: automated exposure control, adjustment of mA and/or KV based on patient size, or use of iterative reconstructive technique. FINDINGS: Lung Bases: There is basilar dependent atelectasis. Liver: The liver is normal in size and contour. There is a geographic region of hyperenhancement in the posterior right lobe of the liver measuring 3.7 x 2.3 cm in size. No biliary dilatation. Liver vessels are patent. Gallbladder/Bile Ducts: Unremarkable. Spleen: Normal. Pancreas: Normal. Adrenal Glands: Normal. Kidneys: Normal. No masses or hydronephrosis. Peritoneal Cavity/Bowel: No dilated bowel or findings of mechanical bowel obstruction. There is no abnormal fluid or gas collection. Negative for lymphadenopathy. The appendix is well visualized and normal. Pelvic Organs: Uterus is nonvisualized. Urinary bladder appears unremarkable. Vasculature: There is moderate calcification abdominal aorta and iliac arteries without aneurysm. Bones: No significant abnormality. Other: None. IMPRESSION: 1. No localizing a acute inflammatory process. No CT finding to explain abdominal pain symptoms. 2. Geographic hyperenhancement of the right lobe of the liver is most suggestive of transient hepatic attenuation difference. 3. Atherosclerotic vascular disease without aneurysm. EXAM: CHEST RADIOGRAPHY EXAM DATE: 10/12/2017 12:38 PM. CLINICAL HISTORY: Chest pain. COMPARISON: 08/15/2017. TECHNIQUE: 2 views. FINDINGS: Lungs/Pleura: The lungs are again noted to be hyperinflated. Persistent left lingular and basilar opacities may represent atelectasis. No pneumothorax or pleural effusion. Mediastinum: Heart and mediastinal contours are unremarkable. Stable left subclavian pacer. Other: Intact osseous structures. IMPRESSION: 1. Stable left basilar/lingular opacities - possible atelectasis. 2. Hyperinflation consistent with underlying emphysema. - EKG Results EKG Interpreted Independently: Yes Core Measures - Anticipated LOS I expect patient to be DC'd or transferred within 96 hours.: Yes - DVT/VTE - Prophylaxis VTE/DVT Device ordered at admit?: Yes VTE/DVT Prophylaxis med ordered at admit?: Yes - Stroke - Rehab Assessment Rehab services assessment to be ordered?: Yes - AMI - Statin at Admit Aspirin Prescribed on Admit: Yes
[2017-10-12] MEDS ORDERED: IPRATROPIUM/ALBUTEROL 3 ML NEB INH PRN (18:23)
[2017-10-12] MEDS: SODIUM CHLORIDE 0.9% 1,000 ML IV SCH (18:57)
[2017-10-12] MEDS: PIPERACILLIN/TAZOBACTAM 3.375 GM in SODIUM CHLORIDE 0.9% MINIBAG 100 ML IV SCH (19:00)
[2017-10-12] MEDS: SODIUM CHLORIDE FLUSH 0.9% 10 ML SYRINGE IVP SCH (19:01)
[2017-10-12] MEDS: BUDESONIDE 0.5 MG/2 ML NEB INH SCH (19:24)
[2017-10-12] MEDS: IPRATROPIUM/ALBUTEROL 3 ML NEB INH SCH (19:25)
[2017-10-12] MEDS: LATANOPROST 0.005% OPHTH DROPS EACHEYE SCH (22:04)
[2017-10-12] MEDS: buPROPion SR 150 MG TABLET PO SCH (22:05)
[2017-10-12] MEDS: TIMOLOL 0.5% OPHTH DROPS RIGHTEYE SCH (22:05)
[2017-10-13] MEDS: PIPERACILLIN/TAZOBACTAM 3.375 GM in SODIUM CHLORIDE 0.9% MINIBAG 100 ML IV SCH ×4 (01:11→19:45)
[2017-10-13] MEDS: SODIUM CHLORIDE FLUSH 0.9% 10 ML SYRINGE IVP SCH ×3 (05:25→16:22)
[2017-10-13] MEDS: IPRATROPIUM/ALBUTEROL 3 ML NEB INH SCH ×3 (06:20→18:58)
[2017-10-13] MEDS: BUDESONIDE 0.5 MG/2 ML NEB INH SCH ×2 (06:20→18:58)
[2017-10-13] MEDS: SODIUM CHLORIDE 0.9% 1,000 ML IV SCH (08:23)
--- NOTE | 2017-10-13 08:31 | PROVIDER PROGRESS NOTE ---
Subjective - Prog Note Date Prog Note Date: 10/13/17 Prog Note Time: 08:31 - Subjective Pt reports feeling: Improved Subjective: Vivi complains of ongoing lethargy and claims that she is not sleeping well. She denies SOB, chest pain, nausea, vomiting or a new cough. Current Medications - Current Medications Current Medications: Active Medications Acetaminophen (Tylenol) 650 mg PO Q4HR PRN PRN Reason: Pain or Fever > 38C (100.4F) Albuterol/Ipratropium (Duoneb) 3 ml INH Q4HR PRN PRN Reason: Wheezing Albuterol/Ipratropium (Duoneb) 3 ml INH RTTID [facility] Last Admin: 10/13/17 11:03 Dose: 3 ml Budesonide (Pulmicort) 0.5 mg INH RTBID [facility] Last Admin: 10/13/17 06:20 Dose: 0.5 mg Bupropion HCl (Wellbutrin Sr) 150 mg PO BID [facility] Last Admin: 10/13/17 08:32 Dose: 150 mg Carbamazepine (Tegretol) 200 mg PO BID [facility] Piperacillin Sod/Tazobactam (Sod 3.375 gm/ Sodium Chloride) 100 mls @ 200 mls/ hr IV Q6H [facility] Last Admin: 10/13/17 13:14 Dose: 200 mls/hr Ibuprofen (Motrin) 600 mg PO Q6HR PRN PRN Reason: PAIN Latanoprost (Xalatan Ophth Drops) 1 drops EACHEYE QPM [facility] Last Admin: 10/12/17 22:04 Dose: 1 drops Metoprolol Tartrate (Lopressor) 25 mg PO BID [facility] Last Admin: 10/13/17 13:14 Dose: 25 mg Polyethylene Glycol (Miralax) 17 gm PO DAILY [facility] Last Admin: 10/13/17 08:32 Dose: 17 gm Sodium Chloride (Normal Saline Flush 0.9%) 10 ml IVP PRN PRN PRN Reason: NEEDED PER PROVIDER ORDERS Sodium Chloride (Normal Saline Flush 0.9%) 10 ml IVP 0100,0900,1700 [facility] Last Admin: 10/13/17 08:33 Dose: Not Given Timolol Maleate (Timoptic 0.5% Ophth Drops) 1 drops RIGHTEYE BID [facility] Last Admin: 10/13/17 08:33 Dose: 1 drops Atorvastatin [Lipitor] 80 mg ORAL DAILY 02/16/14 Lisinopril 20 mg ORAL DAILY 02/16/14 Zolpidem [Ambien] 10 mg ORAL QPM PRN 02/16/14 Metoprolol Tartrate 25 mg PO BID 01/19/17 Mometasone/Formoterol [Dulera 100 Mcg/5 Mcg Inhaler] 2 puffs INH BID 08/15/17 Timolol 0.5% Ophth Drops [Timoptic 0.5% Ophth Drops] 1 drops RIGHTEYE BID Albuterol Sulfate [Proair Hfa Inhaler] 2 puffs INH Q4H PRN 10/12/17 Aspirin 81 mg PO DAILY 10/12/17 Bupropion HCl [Bupropion HCl Sr] 150 mg PO Q12H 10/12/17 Carbamazepine 200 mg PO BID 10/12/17 Dextromethorphan HBr [Tussin Cough] 10 ml PO Q6H PRN 10/12/17 Docusate Sodium 100 mg PO DAILY 10/12/17 Ibuprofen 200 mg PO Q4H PRN 10/12/17 Ibuprofen 400 mg PO Q4H PRN MDD 1200 MG 10/12/17 Ipratropium/Albuterol [Duoneb] 3 ml INH QID PRN 10/12/17 Latanoprost 0.005% Ophth Drops [Xalatan Ophth Drops] 1 drops EACHEYE QPM Multivitamin [Theragran] 1 tab PO DAILY 10/12/17 Oxybutynin Chloride [Ditropan Xl] 10 mg PO DAILY 10/12/17 Objective - Vital Signs/Intake & Output Reviewed Vital Signs: Yes Vital Signs: Vital Signs x48h Temp Pulse Pulse Resp BP BP Pulse Ox 10/13/17 07:51 37.2 C 62 20 145/70 H 93 10/13/17 06:16 60 18 10/13/17 05:00 36.9 C 61 16 148/77 H 95 Intake & Output: Intake & Output 10/10/17 10/11/17 10/12/17 10/13/17 23:59 23:59 23:59 23:59 Intake Total 1480 1200.000 Output Total 1350 400 Balance 130 800.000 - Objective General Appearance: positive: Alert, Moderate distress, Lethargic Eyes Bilateral: positive: Normal inspection, PERRL ENT: positive: ENT inspection nml, Pharynx nml, Dry mucous membranes Neck: positive: Nml inspection, Thyroid nml, No JVD, Lymphadenopathy (R), Lymphadenopathy (L), Stiff neck Respiratory: positive: Chest non-tender, No respiratory distress, Other ( diminished.) Cardiovascular: positive: Regular rate & rhythm, No gallop, Systolic murmur, Decreased pulse(s) Peripheral Pulses: 2+ Radial (R), 2+ Radial (L) Back: positive: Nml inspection Skin: positive: No rash, Warm, Dry Extremities: positive: Non-tender, Full ROM, Nml appearance, Pedal edema (mild, dependent, BLE.) Neurologic/Psychiatric: positive: Oriented x3, CN's nml (2-12), Motor nml, Sensation nml, Weakness, Sensory loss, Slurred/abnml speech, Depressed mood/ affect Reflexes: Bicep (R): 3+, Bicep (L): 3+ - Lab Results Fish Bones: 10/14/17 05:30 10/14/17 05:30 - Diagnostic Imaging Diagnostic Imaging Results: positive: Final report reviewed ABX Reporting Has patient been on IV antibiotics over the past 48 hours?: Yes Assessment/Plan - Problem List (1) Cerebrovascular accident (CVA) due to embolism of posterior cerebral artery with infarctions of both occipital lobes Impression: This was first discovered on09/22/17 in the ED, and the patient was sent back to [facility]. Upon preliminary imaging today, the patient has had a possible subacute additional infarct to the same region. An echocardiogram was completed and is negative for PFO. Plan: Await head CTA results. (2) Nausea and vomiting Impression: The patient was noted to have cyclical vomiting while at [facility] per staff report this morning. She still continues with nausea, but is tolerating some food shortly after arriving on the nursing unit. Plan: Continue to monitor and give anti-emetics as needed. Qualifiers: Vomiting type: unspecified Vomiting Intractability: non-intractable Qualified Code(s): R11.2 - Nausea with vomiting, unspecified (3) UTI (urinary tract infection) Impression: A UA was obtained in the ED that show a UTI, cultures are pending. She does have mild confusion and overall weakness. She is prescribed oxybutynin, that is now on hold. She denies symptoms, but her daughter states that she saw pink urine on her mother's depends while in the ED. Today she denies dysuria. Plan: Treat with IV Zosyn and encourage fluids. Qualifiers: Urinary tract infection type: acute cystitis Hematuria presence: without hematuria Qualified Code(s): N30.00 - Acute cystitis without hematuria (4) Weakness Impression: The patient has had an overall decline from previous baseline, which has become worse in the past month. She suffered a left occipital infarct on , when a CT of her head was completed in the ED to confirm this. Her last fall is thought to be in February of 2017. She has also had a decline in her short term memory function, but is accurate in her orientation upon admission exam. Plan: continue to monitor for increased weakness and any changes in mental status. (5) Cardiac pacemaker Impression: The patient had a pacemaker battery change on 09/25/17 and has a open to air incision to her left chest. This is considered to be without complications. She remains on a beta jacey. The patient is noted to have pacemaker leads in the RA and RV. Plan: Continue to monitor. (6) Pulmonary hypertension Impression: An echocardiogram was completed today and notes an elevated right sided heart pressure with an RVSP at rest of 60mmHg. These are preliminary results. Plan: Will start spironolactone in the AM to treat this.
[2017-10-13] MEDS: POLYETHYLENE GLYCOL 3350 17 GM PACKET PO SCH (08:32)
[2017-10-13] MEDS: buPROPion SR 150 MG TABLET PO SCH ×2 (08:32→21:05)
[2017-10-13] MEDS: TIMOLOL 0.5% OPHTH DROPS RIGHTEYE SCH ×2 (08:33→21:11)
[2017-10-13 11:49] LABS: BASOPHILS % (AUTO) 0.6 %; EOSINOPHILS # (AUTO) 0.1 10^3/uL (0.0-0.7); EOSINOPHILS % (AUTO) 0.9 %; HGB - HEMOGLOBIN 10.8 g/dL (12.0-16.0); LYMPHOCYTES # (AUTO) 1.3 10^3/uL (1.5-3.5); LYMPHOCYTES % (AUTO) 21.7 %; MEAN CORPUSCULAR HEMOGLOBIN 26.1 pg (27.0-31.0); MEAN CORPUSCULAR HGB CONC 32.3 g/dL (32.0-36.0); MEAN CORPUSCULAR VOLUME 80.9 fL (81.0-99.0); MEAN PLATELET VOLUME 7.8 fL (7.9-10.8); MONOCYTES # (AUTO) 0.4 10^3/uL (0.0-1.0); MONOCYTES % (AUTO) 6.2 %; NEUTROPHILS # (AUTO) 4.2 10^3/uL (1.5-6.6); NEUTROPHILS % (AUTO) 70.6 %; PLT - PLATELET COUNT 197 10^3/uL (130-450); RED BLOOD COUNT 4.13 10^6/uL (4.20-5.40); RED CELL DISTRIBUTION WIDTH 16.1 % (12.0-15.0); WHITE BLOOD COUNT 5.9 x10^3/uL (4.8-10.8)
[2017-10-13] MEDS ORDERED: IOPAMIDOL-300 100 ML VIAL ONE (11:55)
[2017-10-13 11:59] LABS: ALBUMIN 2.8 g/dL (3.2-5.5); ALBUMIN/GLOBULIN RATIO 0.8 (1.0-2.2); BILIRUBIN,TOTAL 0.4 mg/dL (0.2-1.0); CALCIUM 8.4 mg/dL (8.5-10.3); CREATININE 0.7 mg/dL (0.4-1.0); TOTAL PROTEIN 6.5 g/dL (6.7-8.2)
[2017-10-13] MEDS ORDERED: IBUPROFEN 600 MG TABLET PO PRN (13:13)
[2017-10-13] MEDS ORDERED: ACETAMINOPHEN 325 MG TABLET PO PRN (13:13)
[2017-10-13] MEDS: METOPROLOL TARTRATE 25 MG TABLET PO SCH ×2 (13:14→21:05)
[2017-10-13] MEDS: carBAMazepine 200 MG TABLET PO SCH ×2 (13:54→21:05)
[2017-10-13] MEDS ORDERED: ONDANSETRON 4 MG/2 ML VIAL IVP PRN (14:05)
[2017-10-13] MEDS ORDERED: LORazepam 0.5 MG TABLET PO PRN (14:06)
[2017-10-13] MEDS: IOPAMIDOL-300 100 ML VIAL IVP ONE (16:33)
--- NOTE | 2017-10-13 18:27 | CT Report ---
EXAM: CT ANGIOGRAM NECK EXAM DATE: 10/13/2017 04:27 PM. CLINICAL HISTORY: 72-year-old woman with stroke. COMPARISON: Chest CTA on 10/10/2014. TECHNIQUE: Routine axial helical imaging was performed from the skull base through the aortic arch. R econstructions: Routine multiplanar 3D MIP reconstructions. IV Contrast: 150 cc Isovue-370. Evaluatio n of arterial stenosis is based on a NASCET method of measurement. In accordance with CT protocol optimization, one or more of the following dose reduction techniques w ere utilized for this exam: automated exposure control, adjustment of mA and/or KV based on patient s ize, or use of iterative reconstructive technique. FINDINGS: RIGHT: - Common and Internal Carotid: Patent without signficant stenosis. There is calcified atherosclerotic plaque at the bifurcation and along the siphon. Stenosis by NASCET criteria: Less than 25%. No evide nce of dissection. No evidence of aneurysm along intracranial ICA. - External Carotid: Unremarkable. - Vertebral: Patent, but scattered calcified after sclerotic plaque results in up to 50-70% luminal n arrowing at the V1-V2 junction. No evidence of dissection. LEFT: - Common and Internal Carotid: Patent without signficant stenosis. There is calcified atherosclerotic plaque at the bifurcation and along the siphon. Stenosis by NASCET criteria: Less than 50%. No evide nce of dissection. No evidence of aneurysm along intracranial ICA. - External Carotid: Unremarkable. - Vertebral: Patent, but scattered calcified atherosclerotic plaque results in 50-70% luminal narrowi ng along the proximal V1 segment. No evidence of dissection. SOFT TISSUES AND BONES: Visualized soft tissues are unremarkable. Spiculated mass is again demonstrat ed in the right lung apex measuring up to 13 x 12 mm in maximum axial dimensions, previously 8 x 5 mm on the exit 10/10/[address] Centrilobular emphysema is again demonstrated. No evidence of acute fracture or malalignment of the cervical spine, but degenerative changes are present. IMPRESSION: 1. Moderate stenosis (50-70% luminal narrowing) of the proximal vertebral arteries bilaterally. 2. Carotid arteries are patent without significant stenosis. 3. Spiculated lesion in the right lung apex, increased in size compared to the 10/10/2014 exam. Findi ngs remain concerning for primary lung malignancy. [facility] Referring Provider Line: [phone] SITE ID: [id number]
--- NOTE | 2017-10-13 18:27 | CT Report ---
EXAM: CT ANGIOGRAM HEAD. CT SCAN OF THE HEAD WITHOUT AND WITH CONTRAST. EXAM DATE: 10/13/2017 04:27 PM CLINICAL HISTORY: 72-year-old woman with stroke. COMPARISON: Noncontrasted CT on 10/12/2017. TECHNIQUE: - CT Scan Head: Using a multidetector scanner, axial images were acquired from the foramen magnum to the skull vertex prior to and following contrast administration. - CT Angiogram: Using a multidetector scanner, high-resolution axial images were acquired from the sk ull base through vertex following rapid infusion of intravenous contrast. Reformats: Multiplanar MIP reformats were reconstructed. Nascet criteria used for stenosis measurement. IV Contrast: 150 cc Isovue-[id number]. In accordance with CT protocol optimization, one or more of the following dose reduction techniques w ere utilized for this exam: automated exposure control, adjustment of mA and/or KV based on patient s ize, or use of iterative reconstructive technique. FINDINGS: NONCONTRAST HEAD: Parenchyma: Patchy regions of hypoattenuation are present in the medial left occipital lobe, new comp ared to the exam done one day prior and consistent with evolving acute infarct. No evidence of hemorr deangelo. The remainder of the parenchyma demonstrates mild hypoattenuation in the periventricular white matter, unchanged from the prior exam and most consistent with sequelae of chronic small vessel ische darwin disease, a common finding in this age group. Ventricles and Extra-axial Spaces: Ventricles are symmetric and normal in size for age. No extra-axia l hemorrhage or fluid collection. Orbits: Unremarkable except for bilateral lens replacement surgery. Sinuses: Paranasal sinuses and mastoid air cells are clear. Extracranial Soft Tissues and Bones: Soft tissues are unremarkable. No fractures. CTA HEAD: RIGHT: - Visualized Internal Carotid: Patent without significant stenosis or aneurysm. There is mild atheros clerotic plaque along the siphon. - Anterior Cerebral: Patent without significant stenosis or aneurysm. - Middle Cerebral: Patent without significant stenosis or aneurysm. - Posterior Cerebral: Patent without significant stenosis or aneurysm. - Posterior Communicating: Not well seen. - Visualized Vertebral: Patent without significant stenosis or dissection. LEFT: - Visualized Internal Carotid: Patent without significant stenosis or aneurysm. There is mild atheros clerotic plaque along the siphon. - Anterior Cerebral: Patent without significant stenosis or aneurysm. - Middle Cerebral: Patent without significant stenosis or aneurysm. - Posterior Cerebral: Patent without significant stenosis or aneurysm. - Posterior Communicating: Not well seen. - Visualized Vertebral: Patent without significant stenosis or dissection. CENTRAL: - Anterior Communicating: Patent. No aneurysm. - Basilar: Patent without significant stenosis, dissection, or aneurysm. Dural Venous Sinuses and Major Central Veins: Patent. POSTCONTRAST HEAD: No abnormal enhancement. IMPRESSION: CT Head: 1. Patchy regions of hypoattenuation in the medial left occipital lobe, new compared to the exam done one day prior and most consistent with evolving acute infarcts. No hemorrhage. 2. Mild white matter changes, stable compared to the prior exam and most consistent with sequelae of chronic small vessel ischemic disease, a common finding in this age group. CTA Head: 1. Normal. No significant vascular stenosis or aneurysm. [facility] Referring Provider Line: [phone] SITE ID: [id number]
[2017-10-13] MEDS: ASPIRIN 325 MG TABLET PO SCH (21:04)
[2017-10-13] MEDS: ATORVASTATIN 40 MG TABLET PO SCH ×2 (21:04→21:05)
[2017-10-13] MEDS: LATANOPROST 0.005% OPHTH DROPS EACHEYE SCH (21:05)
[2017-10-14] MEDS: PIPERACILLIN/TAZOBACTAM 3.375 GM in SODIUM CHLORIDE 0.9% MINIBAG 100 ML IV SCH ×2 (00:48→06:42)
[2017-10-14] MEDS: SODIUM CHLORIDE FLUSH 0.9% 10 ML SYRINGE IVP SCH ×3 (01:33→17:41)
[2017-10-14 06:11] LABS: BASOPHILS # (AUTO) 0.1 10^3/uL (0.0-0.1); BASOPHILS % (AUTO) 0.9 %; EOSINOPHILS # (AUTO) 0.1 10^3/uL (0.0-0.7); EOSINOPHILS % (AUTO) 1.9 %; LYMPHOCYTES # (AUTO) 1.5 10^3/uL (1.5-3.5); LYMPHOCYTES % (AUTO) 23.5 %; MEAN CORPUSCULAR HEMOGLOBIN 26.2 pg (27.0-31.0); MEAN CORPUSCULAR HGB CONC 32.1 g/dL (32.0-36.0); MEAN CORPUSCULAR VOLUME 81.5 fL (81.0-99.0); MONOCYTES # (AUTO) 0.5 10^3/uL (0.0-1.0); MONOCYTES % (AUTO) 8.1 %; NEUTROPHILS # (AUTO) 4.1 10^3/uL (1.5-6.6); NEUTROPHILS % (AUTO) 65.6 %; PLT - PLATELET COUNT 211 10^3/uL (130-450); RED CELL DISTRIBUTION WIDTH 16.5 % (12.0-15.0); WHITE BLOOD COUNT 6.3 x10^3/uL (4.8-10.8)
[2017-10-14 06:22] LABS: ALBUMIN 3.2 g/dL (3.2-5.5); ALBUMIN/GLOBULIN RATIO 0.8 (1.0-2.2); BILIRUBIN,TOTAL 0.4 mg/dL (0.2-1.0); CALCIUM 8.8 mg/dL (8.5-10.3); CREATININE 0.7 mg/dL (0.4-1.0); TOTAL PROTEIN 7.2 g/dL (6.7-8.2)
--- NOTE | 2017-10-14 08:01 | PROVIDER PROGRESS NOTE ---
Subjective - Prog Note Date Prog Note Date: 10/14/17 Prog Note Time: 08:01 - Subjective Pt reports feeling: Improved Subjective: Vivi became tearful when reminded of her current CVA. Her daughter, Kiersten is at the bedside. She denies shortness of breath, chest pain, nausea, vomiting or a new cough. Current Medications - Current Medications Current Medications: Active Medications Acetaminophen (Tylenol) 650 mg PO Q4HR PRN PRN Reason: Pain or Fever > 38C (100.4F) Albuterol/Ipratropium (Duoneb) 3 ml INH Q4HR PRN PRN Reason: Wheezing Albuterol/Ipratropium (Duoneb) 3 ml INH RTTID [facility] Last Admin: 10/13/17 18:58 Dose: 3 ml Aspirin (Alireza) 325 mg PO DAILYWM [facility] Last Admin: 10/13/17 21:04 Dose: 325 mg Atorvastatin Calcium (Lipitor) 80 mg PO QPM [facility] Last Admin: 10/13/17 21:05 Dose: Not Given Budesonide (Pulmicort) 0.5 mg INH RTBID [facility] Last Admin: 10/13/17 18:58 Dose: 0.5 mg Bupropion HCl (Wellbutrin Sr) 150 mg PO BID [facility] Last Admin: 10/13/17 21:05 Dose: 150 mg Carbamazepine (Tegretol) 200 mg PO BID [facility] Last Admin: 10/13/17 21:05 Dose: 200 mg Piperacillin Sod/Tazobactam (Sod 3.375 gm/ Sodium Chloride) 100 mls @ 200 mls/ hr IV Q6H [facility] Last Admin: 10/14/17 06:42 Dose: 200 mls/hr Ibuprofen (Motrin) 600 mg PO Q6HR PRN PRN Reason: PAIN Last Admin: 10/13/17 13:50 Dose: 600 mg Latanoprost (Xalatan Ophth Drops) 1 drops EACHEYE QPM [facility] Last Admin: 10/13/17 21:05 Dose: 1 drops Lorazepam (Ativan) 0.5 mg PO Q6H PRN PRN Reason: Anxiety Metoprolol Tartrate (Lopressor) 25 mg PO BID [facility] Last Admin: 10/13/17 21:05 Dose: 25 mg Ondansetron HCl (Zofran Inj) 4 mg IVP Q4HR PRN PRN Reason: Nausea / Vomiting Last Admin: 10/13/17 14:36 Dose: 4 mg Polyethylene Glycol (Miralax) 17 gm PO DAILY [facility] Last Admin: 10/13/17 08:32 Dose: 17 gm Sodium Chloride (Normal Saline Flush 0.9%) 10 ml IVP PRN PRN PRN Reason: NEEDED PER PROVIDER ORDERS Sodium Chloride (Normal Saline Flush 0.9%) 10 ml IVP 0100,0900,1700 [facility] Last Admin: 10/14/17 01:33 Dose: 10 ml Timolol Maleate (Timoptic 0.5% Ophth Drops) 1 drops RIGHTEYE BID [facility] Last Admin: 10/13/17 21:11 Dose: 1 drops Atorvastatin [Lipitor] 80 mg ORAL DAILY 02/16/14 Lisinopril 20 mg ORAL DAILY 02/16/14 Zolpidem [Ambien] 10 mg ORAL QPM PRN 02/16/14 Metoprolol Tartrate 25 mg PO BID 01/19/17 Mometasone/Formoterol [Dulera 100 Mcg/5 Mcg Inhaler] 2 puffs INH BID 08/15/17 Timolol 0.5% Ophth Drops [Timoptic 0.5% Ophth Drops] 1 drops RIGHTEYE BID Albuterol Sulfate [Proair Hfa Inhaler] 2 puffs INH Q4H PRN 10/12/17 Aspirin 81 mg PO DAILY 10/12/17 Bupropion HCl [Bupropion HCl Sr] 150 mg PO Q12H 10/12/17 Carbamazepine 200 mg PO BID 10/12/17 Dextromethorphan HBr [Tussin Cough] 10 ml PO Q6H PRN 10/12/17 Docusate Sodium 100 mg PO DAILY 10/12/17 Ibuprofen 200 mg PO Q4H PRN 10/12/17 Ibuprofen 400 mg PO Q4H PRN MDD 1200 MG 10/12/17 Ipratropium/Albuterol [Duoneb] 3 ml INH QID PRN 10/12/17 Latanoprost 0.005% Ophth Drops [Xalatan Ophth Drops] 1 drops EACHEYE QPM Multivitamin [Theragran] 1 tab PO DAILY 10/12/17 Oxybutynin Chloride [Ditropan Xl] 10 mg PO DAILY 10/12/17 Objective - Vital Signs/Intake & Output Reviewed Vital Signs: Yes Vital Signs: Vital Signs x48h Temp Pulse Resp BP Pulse Ox 10/14/17 07:54 36.8 C 60 18 168/93 H 97 10/14/17 00:06 37.0 C 60 20 167/88 H 94 Intake & Output: Intake & Output 10/11/17 10/12/17 10/13/17 10/14/17 23:59 23:59 23:59 23:59 Intake Total 1480 3160.000 200 Output Total 1350 3150 1800 Balance 130 10.000 -1600 - Objective General Appearance: positive: No acute distress Eyes Bilateral: positive: Normal inspection ENT: positive: ENT inspection nml, Pharynx nml, Dry mucous membranes - Lab Results Fish Bones: 10/15/17 05:45 10/15/17 05:45 Other Labs: Lab Results x24hrs 10/14/17 10/14/17 10/13/17 Range/Units 05:30 05:30 11:25 WBC 6.3 (4.8-10.8) x10^3/uL RBC 4.60 (4.20-5.40) 10^6/uL Hgb 12.0 (12.0-16.0) g/dL Hct 37.5 (37.0-47.0) % MCV 81.5 (81.0-99.0) fL MCH 26.2 L (27.0-31.0) pg MCHC 32.1 (32.0-36.0) g/dL RDW 16.5 H (12.0-15.0) % Plt Count 211 (130-450) 10^3/uL MPV 8.0 (7.9-10.8) fL Neut # (Auto) 4.1 (1.5-6.6) 10^3/uL Lymph # (Auto) 1.5 (1.5-3.5) 10^3/uL Ogle # (Auto) 0.5 (0.0-1.0) 10^3/uL Eos # (Auto) 0.1 (0.0-0.7) 10^3/uL Baso # (Auto) 0.1 (0.0-0.1) 10^3/uL Absolute Nucleated RBC 0.00 x10^3/uL Nucleated RBC % 0.0 /100WBC Sodium 135 135 (135-145) mmol/L Potassium 3.8 3.9 (3.5-5.0) mmol/L Chloride 100 L 103 (101-111) mmol/L Carbon Dioxide 26 26 (21-32) mmol/L Anion Gap 9.0 6.0 (6-13) BUN 8 11 (6-20) mg/dL Creatinine 0.7 0.7 (0.4-1.0) mg/dL Estimated GFR (MDRD) 82 L 82 L (>89) Glucose 107 H 98 (70-100) mg/dL Calcium 8.8 8.4 L (8.5-10.3) mg/dL Total Bilirubin 0.4 0.4 (0.2-1.0) mg/dL AST 27 26 (10-42) IU/L ALT 27 25 (10-60) IU/L Alkaline Phosphatase 82 80 (42-121) IU/L Total Protein 7.2 6.5 L (6.7-8.2) g/dL Albumin 3.2 2.8 L (3.2-5.5) g/dL Globulin 4.0 3.7 (2.1-4.2) g/dL Albumin/Globulin Ratio 0.8 L 0.8 L (1.0-2.2) 10/13/17 Range/Units 11:25 WBC 5.9 (4.8-10.8) x10^3/uL RBC 4.13 L (4.20-5.40) 10^6/uL Hgb 10.8 L (12.0-16.0) g/dL Hct 33.5 L (37.0-47.0) % MCV 80.9 L (81.0-99.0) fL MCH 26.1 L (27.0-31.0) pg MCHC 32.3 (32.0-36.0) g/dL RDW 16.1 H (12.0-15.0) % Plt Count 197 (130-450) 10^3/uL MPV 7.8 L (7.9-10.8) fL Neut # (Auto) 4.2 (1.5-6.6) 10^3/uL Lymph # (Auto) 1.3 L (1.5-3.5) 10^3/uL Ogle # (Auto) 0.4 (0.0-1.0) 10^3/uL Eos # (Auto) 0.1 (0.0-0.7) 10^3/uL Baso # (Auto) 0.0 (0.0-0.1) 10^3/uL Absolute Nucleated RBC 0.00 x10^3/uL Nucleated RBC % 0.0 /100WBC Sodium (135-145) mmol/L Potassium (3.5-5.0) mmol/L Chloride (101-111) mmol/L Carbon Dioxide (21-32) mmol/L Anion Gap (6-13) BUN (6-20) mg/dL Creatinine (0.4-1.0) mg/dL Estimated GFR (MDRD) (>89) Glucose (70-100) mg/dL Calcium (8.5-10.3) mg/dL Total Bilirubin (0.2-1.0) mg/dL AST (10-42) IU/L ALT (10-60) IU/L Alkaline Phosphatase (42-121) IU/L Total Protein (6.7-8.2) g/dL Albumin (3.2-5.5) g/dL Globulin (2.1-4.2) g/dL Albumin/Globulin Ratio (1.0-2.2) ABX Reporting Has patient been on IV antibiotics over the past 48 hours?: Yes Assessment/Plan - Problem List (1) Cerebrovascular accident (CVA) due to embolism of posterior cerebral artery with infarctions of both occipital lobes Impression: The patient has had previous CVAs, but upon admission she had continued change in mentation and as per her daughter, Kiersten, she is much different in the past few days. It was thought that this may have been from her UTI, but since she had just had a positive CVA just on 09/22/17, this path was taken to to some further checking. The patient has suffered from a new CVA in the occipital lobes, without right or left sided weakness. Plan: PT/OT evaluation prior to discharge. Continue to hold hypertensives, ASA full dose and a statin. (2) Nausea and vomiting Impression: One of the primary complaints upon admission was nausea. The patient has not vomited, but at lunch, she did have a small amount of lunch food type vomit. She can continue to have zofran for symptoms. Plan: Monitor, and this will likely improve as her UTI is treated. Qualifiers: Vomiting type: unspecified Vomiting Intractability: non-intractable Qualified Code(s): R11.2 - Nausea with vomiting, unspecified (3) UTI (urinary tract infection) Impression: The patient was found to have a urine sample suspicious for UTI, and was collected on 10/12/17. Culture results show klebsiella pneumoniae as the primary pathogen with sensitivities to Augmentin which was started early today. I have also added a probiotic as a preventative. Plan: Continue oral medication for at least a 10 day course. Qualifiers: Urinary tract infection type: acute cystitis Hematuria presence: without hematuria Qualified Code(s): N30.00 - Acute cystitis without hematuria (4) Weakness Impression: The patient's daughter, Kiersten, claims that her mother has been increasingly weak for the past several days. She just had a +CVA on 09/22/17, but not hospitalized. She remained on a baby aspirin until this admission. The patient was thought to be weak due to her UTI, but further imaging showed additional infarctions in the occipital lobes and mild white matter changes. Plan: Continue to encourage activity and monitor mental status. Continue to treat UTI. (5) Cardiac pacemaker Impression: The patient had a pacemaker/ICD device change on 09/25/17 and remains with an open to air incision that looks healthy and without infection. Imaging show leads in the RA and RV. Plan: Continue to monitor skin, no longer on telemetry. (6) Pulmonary hypertension Impression: The patient has had a full CVA work up including an echocardiogram. Her current RVSP at rest is 60mmHg. She has etiology is likely to be a right pulmonary nodule, and a long history of smoking. Plan: (7) Pulmonary nodule, right Impression: The patient has a known right pulmonary nodule that was first discovered in 2014. It previously measured 8 x 5 mm and is now found to be increased and measures 13 x 12 mm. These findings are concerning for primary lung malignancy. The patient is known to be a life-long tobacco user, but has not smoked in a few years. She admits to "a smokers cough upon admission". Plan: I will bring this up to her PCP, and recommend an oncology consult for further evaluation. (8) Vertebral artery stenosis Impression: A neck CTA revealed bilateral 50-70% luminal narrowing of the proximal vertebral arteries. Carotid arteries are patent without significant stenosis. Treatment may be useful in those patients with a greater than 60% stenosis. The patient is asymptomatic. Plan: Follow up with PCP. Qualifiers: Laterality: bilateral Qualified Code(s): I65.03 - Occlusion and stenosis of bilateral vertebral arteries
[2017-10-14] MEDS: buPROPion SR 150 MG TABLET PO SCH ×2 (08:54→20:57)
[2017-10-14] MEDS: ASPIRIN 325 MG TABLET PO SCH (08:54)
[2017-10-14] MEDS: carBAMazepine 200 MG TABLET PO SCH ×2 (08:54→20:57)
[2017-10-14] MEDS: METOPROLOL TARTRATE 25 MG TABLET PO SCH ×2 (08:55→20:57)
[2017-10-14] MEDS: POLYETHYLENE GLYCOL 3350 17 GM PACKET PO SCH (08:55)
[2017-10-14] MEDS: TIMOLOL 0.5% OPHTH DROPS RIGHTEYE SCH ×2 (08:57→20:58)
[2017-10-14] MEDS: BUDESONIDE 0.5 MG/2 ML NEB INH SCH ×2 (09:41→22:26)
[2017-10-14] MEDS: IPRATROPIUM/ALBUTEROL 3 ML NEB INH SCH ×3 (09:41→22:26)
[2017-10-14] MEDS: AMOX/CLAV 875 MG/125 MG TABLET PO SCH ×2 (12:00→20:57)
[2017-10-14] MEDS: SACCHAROMYCES BOULARDII 250 MG CAPSULE PO SCH ×2 (12:01→17:41)
[2017-10-14] MEDS: ATORVASTATIN 40 MG TABLET PO SCH (20:57)
[2017-10-14] MEDS: LATANOPROST 0.005% OPHTH DROPS EACHEYE SCH (20:59)
[2017-10-15] MEDS: SODIUM CHLORIDE FLUSH 0.9% 10 ML SYRINGE IVP SCH ×3 (00:37→15:57)
[2017-10-15 06:20] LABS: BASOPHILS % (AUTO) 0.7 %; EOSINOPHILS # (AUTO) 0.2 10^3/uL (0.0-0.7); EOSINOPHILS % (AUTO) 3.3 %; HGB - HEMOGLOBIN 12.1 g/dL (12.0-16.0); LYMPHOCYTES # (AUTO) 1.9 10^3/uL (1.5-3.5); LYMPHOCYTES % (AUTO) 30.1 %; MEAN CORPUSCULAR HEMOGLOBIN 26.2 pg (27.0-31.0); MEAN CORPUSCULAR HGB CONC 32.3 g/dL (32.0-36.0); MONOCYTES # (AUTO) 0.6 10^3/uL (0.0-1.0); MONOCYTES % (AUTO) 9.3 %; NEUTROPHILS # (AUTO) 3.6 10^3/uL (1.5-6.6); NEUTROPHILS % (AUTO) 56.6 %; PLT - PLATELET COUNT 201 10^3/uL (130-450); RED BLOOD COUNT 4.62 10^6/uL (4.20-5.40); RED CELL DISTRIBUTION WIDTH 16.1 % (12.0-15.0); WHITE BLOOD COUNT 6.4 x10^3/uL (4.8-10.8)
[2017-10-15 06:27] LABS: ALBUMIN 3.1 g/dL (3.2-5.5); ALBUMIN/GLOBULIN RATIO 0.8 (1.0-2.2); BILIRUBIN,TOTAL 0.6 mg/dL (0.2-1.0); CALCIUM 8.7 mg/dL (8.5-10.3); CREATININE 0.7 mg/dL (0.4-1.0); TOTAL PROTEIN 6.8 g/dL (6.7-8.2)
[2017-10-15] MEDS: IPRATROPIUM/ALBUTEROL 3 ML NEB INH SCH (07:22)
[2017-10-15] MEDS: BUDESONIDE 0.5 MG/2 ML NEB INH SCH (07:22)
[2017-10-15] MEDS: ASPIRIN 325 MG TABLET PO SCH (08:27)
[2017-10-15] MEDS: POLYETHYLENE GLYCOL 3350 17 GM PACKET PO SCH (08:27)
[2017-10-15] MEDS: buPROPion SR 150 MG TABLET PO SCH (08:27)
[2017-10-15] MEDS: AMOX/CLAV 875 MG/125 MG TABLET PO SCH (08:28)
[2017-10-15] MEDS: carBAMazepine 200 MG TABLET PO SCH (08:28)
[2017-10-15] MEDS: METOPROLOL TARTRATE 25 MG TABLET PO SCH (08:28)
[2017-10-15] MEDS: SACCHAROMYCES BOULARDII 250 MG CAPSULE PO SCH ×2 (08:29→16:04)
[2017-10-15] MEDS: TIMOLOL 0.5% OPHTH DROPS RIGHTEYE SCH (08:36)
[2017-10-15] MEDS ORDERED: DOCUSATE SODIUM 250 MG CAPSULE PO SCH (09:00)
[2017-10-15] MEDS ORDERED: SENNA 8.6 MG TABLET PO SCH (09:00)
--- NOTE | 2017-10-15 11:56 | Discharge Plan ---
"Discharge Plan for SNF / [facility] - DC Plan and Transition Orders Disposition: 06 Home Health Service Condition: Good SNF Transition Orders: Admit to: [facility] under the care of Juan R Tierney Discharge Diagnosis: Klebsiella pneumoniea UTI, right pulmonary nodule, vertebral artery stenosis, occipital CVA, dementia, short term memory loss, cardiac pacemaker, constipation, and COPD. Notify PCP of admission and forward orders to primary provider for signature. Weight on admission and monthly. Call PCP immediately if weight increases by 10 pounds or if patient develops dyspnea, chest pain/tightness or edema. House Bowel Program: yes; If no BM after 2 days, nurse may give M.O.M. 30ml PO PRN and /or ducolax Supp 1 MD and /or JERI 250mg P.O., and/or senna 1-2 tabs PO. On day 3 nurse may give repeat above order until residents constipation is resolved. Treatments & Other Orders: Prompt follow up with PCP, within one week for a right pulmonary nodule that has increased in size since 2015. Continue PT/OT at [facility]. Oxygen Orders: Not needed while hospitalized. May use 1-2L per nasal cannula to keep oxygen saturation greater than 90%, PRN. 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 Lab Tests or X-Rays Orders: Not indicated. Medications: PLEASE REFER TO THE DISCHARGE MEDICATION LIST. Allergies and Adverse Reactions: Allergies Allergy/AdvReac Type Severity Reaction Status Date / Time Sulfa (Sulfonamide AdvReac Rash Verified 01/19/17 12:12 Antibiotics) - Medications New Prescriptions: Ibuprofen [Motrin] 600 mg PO Q6HR PRN #90 tablet PRN Reason: Pain Amox/Clav 875/125 [Augmentin 875/125] 1 tab PO BID 10 Days #20 tablet Aspirin [Alireza] 325 mg PO DAILYWM #30 tablet Atorvastatin Calcium 80 mg PO DAILY #30 tablet Lisinopril 10 mg PO DAILY #30 tablet Polyethylene Glycol 3350 [Miralax] 17 gm PO DAILY #30 packet Saccharomyces Boulardii [Florastor] 250 mg PO BID 20 Days #40 capsule Spironolactone [Aldactone] 12.5 mg PO DAILY #15 tablet - Diet Type: Geriatric Texture: Regular Liquids: Thin May have monthly special meal: Yes - Therapies | Activity Therapy: Evaluation | Treat if indicated: PT, OT Rehabilitation Potential: Maximize functional status, Return to independent living, Maintain present ADL Functional Activity: Activity as Tolerated Weight Bearing: Full Weight Assistance Devices: Walker Additional Instructions: I called Dr. Tierney to update of necessary follow ups including; Cardiology to check if pacemaker shows any signs of atrial fibrillation, neurology in the next few weeks and an oncology consult to evaluate this newly increased right lung nodule. Neurology was called to ensure proper treatment of this CVA: I spoke to Dr. Peralta who is interested in evidence of atrial fibrillation (as a possible cause of this CVA), and undergoing a possible right lung biopsy to check for malignancy as this can thicken the blood, thereby giving another possible cause to this CVA. She would like a neurology follow up in the next few weeks. If no luck at your already established office to move up this appointment, Dr. So Peralta, [facility] will see you. Phone # is [phone] to make an appointment."
--- NOTE | 2017-10-15 12:42 | DISCHARGE SUMMARY ---
Discharge Summary Admit Date: 10/12/17 Discharge Date: 10/15/17 Discharging Provider: DRISS Howell Primary Care Provider: Juan R Tierney Code Status: Attempt Resuscitation Condition at Discharge: Good Discharge Disposition: Home Health Service Discharge Facility Name: [facility] - DIAGNOSES Admission Diagnoses: Cerebral infarction due to embolism of unspecified posterior cerebral artery ( I63.439) Weakness (R53.1) Urinary tract infection, site not specified (N39.0) Nausea with vomiting, unspecified (R11.2) Presence of cardiac pacemaker (Z95.0) Discharge Diagnoses with Status of Each Condition: Occipital cerebral infarction (I63.9) -new on this admission, evidence of prior infarctions. Nausea and vomiting (R11.2) -resolved. UTI due to Klebsiella species (N39.0) -new on this admission, treatment to continue. Weakness (R53.1) -improved, PT/OT to continue at [facility]. Cardiac pacemaker (Z95.0) -chronic, patient needs Cardiology follow up. Pulmonary hypertension, moderate to severe (I27.20) -Spironolactone started, low dose. Pulmonary nodule, right (R91.1) -noted to be increased in size since 2015, may choose Oncology follow up. Vertebral artery stenosis (I65.09)- new on this admission, monitor, stable. - HPI History of Present Illness: Vivi Yanez is an ill-appearing 72-year old female with a past medical history of pacemaker implant, CVA, hypertension, hyperlipidemia, COPD, history of tobacco dependence, depression, bipolar disorder, and urinary incontinence. The patient was brought to the ED from [facility] after being found this morning with an inability to walk, less interactive and nausea with cyclical vomiting. Once in the ED a urine sample was obtained and shows a UTI, an elevated B/P of 179/99, low sodium at 132, GFR of 70, a normal WBC count and no other abnormalities. Even after being in the ED for some time, she continued with ataxia, weakness, and slow mentation. According to her daughter , Kiersten, she has had a profound change in mental status that has been getting worse. The patient denies recent falls, shortness of breath, chest pain, or a new cough. She will be admitted for treatment of her UTI, further syncope work up with PT evaluation. - CONSULTS | PROCEDURES Consultations: Dr. So Peralta, [place] [facility] via phone. - HOSPITAL COURSE Hospital Course: The following diagnoses were prevalent during this hospital stay: (1) Cerebrovascular accident (CVA) due to embolism of posterior cerebral artery with infarctions of both occipital lobes The patient has had previous CVAs, but upon admission she had continued change in mentation and as per her daughter, Kiersten, she is much different in the past few days. It was thought that this may have been from her UTI, but since she had just had a positive CVA just on 09/22/17, this path was taken to to some further checking. The patient has suffered from a new CVA in the occipital lobes, without right or left sided weakness. Our physical and occupational therapies recommend further PT/OT at [facility] upon discharge. [place] [facility] was called and we talked to So Peralta who recommends full dose ASA, full dose atorvastatin, and follow up in the next few weeks with neurology. A possible cause of this CVA may be cardiac arrhythmia related, so contact with Cardiology should be made to have her pacemaker interrogated. Also, her right lung nodule has increased in size since 2014, making malignancy another possible cause of CVA. (2) Nausea and vomiting One of the primary complaints upon admission was nausea. The patient vomited at lunch x1, but this has since resolved. Her symptoms continued to be controlled with zofran as needed. This finally resolved and has not been an issue for the past 24 hours. (3) UTI (urinary tract infection) The patient was found to have a urine sample suspicious for UTI, and was collected on 10/12/17. Culture results show klebsiella pneumoniae as the primary pathogen with sensitivities to Augmentin which was started here and is to continue to for the next 10 days. I have also added a probiotic as a preventative. (4) Weakness The patient's daughter, Kiersten, claims that her mother has been increasingly weak for the past several days. She just had a +CVA on 09/22/17, but not hospitalized. She remained on a baby aspirin until this admission. The patient was thought to be weak due to her UTI, but further imaging showed additional infarctions in the occipital lobes and mild white matter changes. The patient was continually encouraged to increase her activity and her mental status was monitored. (5) Cardiac pacemaker The patient had a pacemaker/ICD device change on 09/25/17 and remains with an open to air incision that looks healthy and without infection. Imaging show leads in the RA and RV. The patient was monitored on telemetry, which showed no evidence of ectopy, or arrhythmias, atrial paced rhythm. We recommend following up with Cardiology to ensure no recent atrial fibrillation as a possible cause of this CVA. (6) Pulmonary hypertension, moderate The patient has had a full CVA work up including an echocardiogram. Her current RVSP at rest is 60mmHg. She has etiology is likely to be a right pulmonary nodule, and a long history of smoking. A low dose of Spironolactone was started while inpatient and is to continue at [facility]. To compensate for this, Lisinopril dose was reduced to prevent ataxia, hypotension. (7) Pulmonary nodule, right The patient has a known right pulmonary nodule that was first discovered in 2014. It previously measured 8 x 5 mm and is now found to be increased and measures 13 x 12 mm. These findings are concerning for primary lung malignancy. The patient is known to be a life-long tobacco user, but has not smoked in a few years. She admits to "a smokers cough upon admission". Primary doctor Niall was contacted via phone shortly before discharge, and an oncology consult may be warranted. (8) Vertebral artery stenosis, bilateral A neck CTA revealed bilateral 50-70% luminal narrowing of the proximal vertebral arteries. Carotid arteries are patent without significant stenosis. Treatment may be useful in those patients with a greater than 60% stenosis. The patient is asymptomatic. In speaking with [place], neurology, this was not on the forefront of causes to her recurrent CVAs. Disposition: The patient was in stable condition at the time of discharge back to [facility]. Her daughter, YANNICK, Kiersten transported via private car and prescriptions were sent to [facility] pharmacy as requested. The patient was ambulatory and did not require oxygen supplementation. - ALLERGIES Allergies/Adverse Reactions: Allergies Allergy/AdvReac Type Severity Reaction Status Date / Time Sulfa (Sulfonamide AdvReac Rash Verified 01/19/17 12:12 Antibiotics) - MEDICATIONS Home Medications: Ambulatory Orders Medication Instructions Recorded Confirmed Zolpidem [Ambien] 10 mg ORAL QPM PRN 02/16/14 10/12/17 Metoprolol Tartrate 25 mg PO BID 01/19/17 10/12/17 Mometasone/Formoterol [Dulera 100 2 puffs INH BID 08/15/17 10/12/17 Mcg/5 Mcg Inhaler] Timolol 0.5% Ophth Drops [Timoptic 1 drops RIGHTEYE BID 08/15/17 10/12/17 0.5% Ophth Drops] Albuterol Sulfate [Proair Hfa 2 puffs INH Q4H PRN 10/12/17 10/12/17 Inhaler] Bupropion HCl [Bupropion HCl Sr] 150 mg PO Q12H 10/12/17 10/12/17 Carbamazepine 200 mg PO BID 10/12/17 10/12/17 Dextromethorphan HBr [Tussin Cough] 10 ml PO Q6H PRN 10/12/17 10/12/17 Docusate Sodium 100 mg PO DAILY 10/12/17 10/12/17 Ipratropium/Albuterol [Duoneb] 3 ml INH QID PRN 10/12/17 10/12/17 Latanoprost 0.005% Ophth Drops 1 drops EACHEYE QPM 10/12/17 10/12/17 [Xalatan Ophth Drops] Multivitamin [Theragran] 1 tab PO DAILY 10/12/17 10/12/17 Oxybutynin Chloride [Ditropan Xl] 10 mg PO DAILY 10/12/17 10/12/17 Amox/Clav 875/125 [Augmentin 1 tab PO BID 10 Days #20 tablet 10/15/17 875/125] Aspirin [Alireza] 325 mg PO DAILYWM #30 tablet 10/15/17 Atorvastatin Calcium 80 mg PO DAILY #30 tablet 10/15/17 Ibuprofen [Motrin] 600 mg PO Q6HR PRN #90 tablet 10/15/17 Lisinopril 10 mg PO DAILY #30 tablet 10/15/17 Polyethylene Glycol 3350 [Miralax] 17 gm PO DAILY #30 packet 10/15/17 Saccharomyces Boulardii [Florastor] 250 mg PO BID 20 Days #40 capsule 10/15/17 Spironolactone [Aldactone] 12.5 mg PO DAILY #15 tablet 10/15/17 - PHYSICAL EXAM AT DISCHARGE General Appearance: positive: No acute distress, Alert Eyes Bilateral: positive: Normal inspection, PERRL ENT: positive: ENT inspection nml, Pharynx nml, No signs of dehydration Neck: positive: Nml inspection, Thyroid nml, No JVD Respiratory: positive: Chest non-tender, No respiratory distress, Breath sounds nml, Other (diminshed.) Cardiovascular: positive: No gallop, Irregularly irregular, Systolic murmur, Decreased pulse(s) Peripheral Pulses: positive: 2+ Abdomen: positive: Non-tender, Nml bowel sounds, Other (rounded, soft) Back: positive: Nml inspection Skin: positive: No rash, Warm, Dry Extremities: positive: Non-tender, Full ROM, Pedal edema, Joint swelling Neurologic/Psychiatric: positive: Oriented x3, Weakness, Sensory loss, Slurred/ abnml speech, Depressed mood/affect Reflexes: Bicep (R): 3+, Bicep (L): 3+ - LABS Result Diagrams: 10/15/17 05:45 10/15/17 05:45 - DIAGNOSTIC IMAGING Diagnostic Imaging Results: Final report reviewed Diagnostic Imaging Results Comments: EXAM: CT ANGIOGRAM NECK EXAM DATE: 10/13/2017 04:27 PM. CLINICAL HISTORY: 72-year-old woman with stroke. COMPARISON: Chest CTA on 10/10/2014. TECHNIQUE: Routine axial helical imaging was performed from the skull base through the aortic arch. Reconstructions: Routine multiplanar 3D MIP reconstructions. IV Contrast: 150 cc Isovue-370. Evaluation of arterial stenosis is based on a NASCET method of measurement. In accordance with CT protocol optimization, one or more of the following dose reduction techniques were utilized for this exam: automated exposure control, adjustment of mA and/or KV based on patient size, or use of iterative reconstructive technique. FINDINGS: RIGHT: - Common and Internal Carotid: Patent without signficant stenosis. There is calcified atherosclerotic plaque at the bifurcation and along the siphon. Stenosis by NASCET criteria: Less than 25%. No evidence of dissection. No evidence of aneurysm along intracranial ICA. - External Carotid: Unremarkable. - Vertebral: Patent, but scattered calcified after sclerotic plaque results in up to 50-70% luminal narrowing at the V1-V2 junction. No evidence of dissection. LEFT: - Common and Internal Carotid: Patent without signficant stenosis. There is calcified atherosclerotic plaque at the bifurcation and along the siphon. Stenosis by NASCET criteria: Less than 50%. No evidence of dissection. No evidence of aneurysm along intracranial ICA. - External Carotid: Unremarkable. - Vertebral: Patent, but scattered calcified atherosclerotic plaque results in 50-70% luminal narrowing along the proximal V1 segment. No evidence of dissection. SOFT TISSUES AND BONES: Visualized soft tissues are unremarkable. Spiculated mass is again demonstrated in the right lung apex measuring up to 13 x 12 mm in maximum axial dimensions, previously 8 x 5 mm on the exit 10/10/[address] Centrilobular emphysema is again demonstrated. No evidence of acute fracture or malalignment of the cervical spine, but degenerative changes are present. IMPRESSION: 1. Moderate stenosis (50-70% luminal narrowing) of the proximal vertebral arteries bilaterally. 2. Carotid arteries are patent without significant stenosis. 3. Spiculated lesion in the right lung apex, increased in size compared to the 10/10/2014 exam. Findings remain concerning for primary lung malignancy. EXAM: CT ANGIOGRAM HEAD. CT SCAN OF THE HEAD WITHOUT AND WITH CONTRAST. EXAM DATE: 10/13/2017 04:27 PM CLINICAL HISTORY: 72-year-old woman with stroke. COMPARISON: Noncontrasted CT on 10/12/2017. TECHNIQUE: - CT Scan Head: Using a multidetector scanner, axial images were acquired from the foramen magnum to the skull vertex prior to and following contrast administration. - CT Angiogram: Using a multidetector scanner, high-resolution axial images were acquired from the skull base through vertex following rapid infusion of intravenous contrast. Reformats: Multiplanar MIPreformats were reconstructed. Nascet criteria used for stenosis measurement. IV Contrast: 150 cc Isovue-370. In accordance with CT protocol optimization, one or more of the following dose reduction techniques were utilized for this exam: automated exposure control, adjustment of mA and/or KV based on patient size, or use of iterative reconstructive technique. FINDINGS: NONCONTRAST HEAD: Parenchyma: Patchy regions of hypoattenuation are present in the medial left occipital lobe, new compared to the exam done one day prior and consistent with evolving acute infarct. No evidence of hemorrhage. The remainder of the parenchyma demonstrates mild hypoattenuation in the periventricular white matter, unchanged from the prior exam and most consistent with sequelae of chronic small vessel ischemic disease, a common finding in this age group. Ventricles and Extra-axial Spaces: Ventricles are symmetric and normal in size for age. No extra- axial hemorrhage or fluid collection. Orbits: Unremarkable except for bilateral lens replacement surgery. Sinuses: Paranasal sinuses and mastoid air cells are clear. Extracranial Soft Tissues and Bones: Soft tissues are unremarkable. No fractures. CTA HEAD: RIGHT: - Visualized Internal Carotid: Patent without significant stenosis or aneurysm. There is mild atherosclerotic plaque along the siphon. - Anterior Cerebral: Patent without significant stenosis or aneurysm. - Middle Cerebral: Patent without significant stenosis or aneurysm. - Posterior Cerebral: Patent without significant stenosis or aneurysm. - Posterior Communicating: Not well seen. - Visualized Vertebral: Patent without significant stenosis or dissection. LEFT: - Visualized Internal Carotid: Patent without significant stenosis or aneurysm. There is mild atherosclerotic plaque along the siphon. - Anterior Cerebral: Patent without significant stenosis or aneurysm. - Middle Cerebral: Patent without significant stenosis or aneurysm. - Posterior Cerebral: Patent without significant stenosis or aneurysm. - Posterior Communicating: Not well seen. - Visualized Vertebral: Patent without significant stenosis or dissection. CENTRAL: - Anterior Communicating: Patent. No aneurysm. - Basilar: Patent without significant stenosis, dissection, or aneurysm. Dural Venous Sinuses and Major Central Veins: Patent. POSTCONTRAST HEAD: No abnormal enhancement. IMPRESSION: CT Head: 1. Patchy regions of hypoattenuation in the medial left occipital lobe, new compared to the exam done one day prior and most consistent with evolving acute infarcts. No hemorrhage. 2. Mild white matter changes, stable compared to the prior exam and most consistent with sequelae of chronic small vessel ischemic disease, a common finding in this age group. CTA Head: 1. Normal. No significant vascular stenosis or aneurysm. EXAM: CT HEAD EXAM DATE: 10/12/2017 02:33 PM. CLINICAL HISTORY: Weakness and off balance. COMPARISON: 09/22/2017. TECHNIQUE: Multiaxial CT images were obtained from the foramen magnum to the vertex. Reformats: Coronal. IV contrast: None. In accordance with CT protocol optimization, one or more of the following dose reduction techniques were utilized for this exam: automated exposure control, adjustment of mA and/or KV based on patient size, or use of iterative reconstructive technique. FINDINGS: Parenchyma: There is decreased attenuation in the left occipital lobe. There is no evidence of acute intracranial hemorrhage. No midline shift or mass effect. Extraaxial Spaces: No subdural or epidural collections identified. Ventricles: Normal in size and position. Sinuses and Orbits: Imaged paranasal sinuses, orbits, and mastoids show no significant abnormality. Bones: No evidence of fracture or calvarial defect. Other: None. IMPRESSION: 1. Hypodensity in the left occipital lobe, similar to 09/22/2017, suspicious for subacute infarct, not excluding artifact. 2. No hemorrhage or mass effect. EXAM: CHEST RADIOGRAPHY EXAM DATE: 10/12/2017 12:38 PM. CLINICAL HISTORY: Chest pain. COMPARISON: 08/15/2017. TECHNIQUE: 2 views. FINDINGS: Lungs/Pleura: The lungs are again noted to be hyperinflated. Persistent left lingular and basilar opacities may represent atelectasis. No pneumothorax or pleural effusion. Mediastinum: Heart and mediastinal contours are unremarkable. Stable left subclavian pacer. Other: Intact osseous structures. IMPRESSION: 1. Stable left basilar/lingular opacities - possible atelectasis. 2. Hyperinflation consistent with underlying emphysema. EXAM: CT ABDOMEN AND PELVIS EXAM DATE: 10/12/2017 12:55 PM. CLINICAL HISTORY: Left abd pain and vomiting. COMPARISONS: 01/19/2017. TECHNIQUE: Routine helical CT imaging was performed through the abdomen and pelvis. IV contrast: 100 cc Isovue-300 IV. Enteric contrast: No. Reconstructions : Coronal and sagittal. In accordance with CT protocol optimization, one or more of the following dose reduction techniques were utilized for this exam: automated exposure control, adjustment of mA and/or KV based on patient size, or use of iterative reconstructive technique. FINDINGS: Lung Bases: There is basilar dependent atelectasis. Liver: The liver is normal in size and contour. There is a geographic region of hyperenhancement in the posterior right lobe of the liver measuring 3.7 x 2.3 cm in size. No biliary dilatation. Liver vessels are patent. Gallbladder/Bile Ducts: Unremarkable. Spleen: Normal. Pancreas: Normal. Adrenal Glands: Normal. Kidneys: Normal. No masses or hydronephrosis. Peritoneal Cavity/Bowel: No dilated bowel or findings of mechanical bowel obstruction. There is no abnormal fluid or gas collection. Negative for lymphadenopathy. The appendix is well visualized and normal. Pelvic Organs: Uterus is nonvisualized. Urinary bladder appears unremarkable. Vasculature: There is moderate calcification abdominal aorta and iliac arteries without aneurysm. Bones: No significant abnormality. Other: None. IMPRESSION: 1. No localizing a acute inflammatory process. No CT finding to explain abdominal pain symptoms. 2. Geographic hyperenhancement of the right lobe of the liver is most suggestive of transient hepatic attenuation difference. 3. Atherosclerotic vascular disease without aneurysm. ECHOCARDIOGRAM-Final 10/13/17 1. Mild concentric LVH with normal function, EF 70%. The LA is severely dilated and there is moderate diastolic dysfuction. 2. Normal RV size and function. There is moderate to severe pulmonary HTN with a PASP of 60 mmHg. 3. Mild to moderate mitral regurg. - FOLLOW UP Follow Up: Disposition: Home Health Service Condition: Good SNF Transition Orders: Admit to: [facility] under the care of Juan R Tierney Discharge Diagnosis: Klebsiella pneumoniea UTI, right pulmonary nodule, vertebral artery stenosis, occipital CVA, dementia, short term memory loss, cardiac pacemaker, constipation, and COPD. Notify PCP of admission and forward orders to primary provider for signature. Weight on admission and monthly. Call PCP immediately if weight increases by 10 pounds or if patient develops dyspnea, chest pain/tightness or edema. House Bowel Program: yes; If no BM after 2 days, nurse may give M.O.M. 30ml PO PRN and /or ducolax Supp 1 UT and /or JERI 250mg P.O., and/or senna 1-2 tabs PO. On day 3 nurse may give repeat above order until residents constipation is resolved. Treatments & Other Orders: Prompt follow up with PCP, within one week for a right pulmonary nodule that has increased in size since 2015. Continue PT/OT at [facility]. Oxygen Orders: Not needed while hospitalized. May use 1-2L per nasal cannula to keep oxygen saturation greater than 90%, PRN. Continue retirement inhalers with a rescue inhaler PRN. Lab Tests or X-Rays Orders: Not indicated. New Prescriptions: Ibuprofen [Motrin] 600 mg PO Q6HR PRN #90 tablet PRN Reason: Pain Amox/Clav 875/125 [Augmentin 875/125] 1 tab PO BID 10 Days #20 tablet Aspirin [Alireza] 325 mg PO DAILYWM #30 tablet Atorvastatin Calcium 80 mg PO DAILY #30 tablet Lisinopril 10 mg PO DAILY #30 tablet Polyethylene Glycol 3350 [Miralax] 17 gm PO DAILY #30 packet Saccharomyces Boulardii [Florastor] 250 mg PO BID 20 Days #40 capsule Spironolactone [Aldactone] 12.5 mg PO DAILY #15 tablet - Diet Type: Geriatric Texture: Regular Liquids: Thin May have monthly special meal: Yes - Therapies | Activity Therapy: Evaluation | Treat if indicated: PT, OT Rehabilitation Potential: Maximize functional status, Return to independent living, Maintain present ADL Functional Activity: Activity as Tolerated Weight Bearing: Full Weight Assistance Devices: Walker Additional Instructions: I called Dr. Tierney to update of necessary follow ups including; Cardiology to check if pacemaker shows any signs of atrial fibrillation, neurology in the next few weeks and an oncology consult to evaluate this newly increased right lung nodule. Neurology was called to ensure proper treatment of this CVA: I spoke to Dr. Peralta who is interested in evidence of atrial fibrillation (as a possible cause of this CVA), and undergoing a possible right lung biopsy to check for malignancy as this can thicken the blood, thereby giving another possible cause to this CVA. She would like a neurology follow up in the next few weeks. If no luck at your already established office to move up this appointment, Dr. So Peralta, [place] will see you. Phone # is [phone] to make an appointment. Additional CC's: Favio Tierney - TIME SPENT Time Spent in Discharge (Minutes): 60
[2017-10-15] MEDS ORDERED: SALINE ENEMA 133 ML BOTTLE RC PRN (12:44)
[2017-10-15] MEDS ORDERED: SPIRONOLACTONE 25 MG TABLET PO SCH (13:00)
[2017-10-15] MEDS ORDERED: POLYETHYLENE GLYCOL 3350 17 GM PACKET PO SCH (13:00)
[2017-10-15 17:03] VITALS: BP 112/74
== END 2017-10-15 17:50 | disposition home health service (06) | DRG 65 ==
LOC: EDUNIT# → EDBD → ED 10:04 → MS2 14:55
PROVIDERS: ADMIT Nurse Practitioner; ATTEND Nurse Practitioner
DX: I63.433 Cerebral infarction due to embolism of bilateral posterior cerebral arteries (principal); E87.1 Hypo-osmolality and hyponatremia; N30.00 Acute cystitis without hematuria; E78.00 Pure hypercholesterolemia, unspecified; R27.0 Ataxia, unspecified; R53.1 Weakness; R41.89 Other symptoms and signs involving cognitive functions and awareness; B96.1 Klebsiella pneumoniae [K. pneumoniae] as the cause of diseases classified elsewhere; I65.03 Occlusion and stenosis of bilateral vertebral arteries; I27.23 Pulmonary hypertension due to lung diseases and hypoxia; I11.9 Hypertensive heart disease without heart failure; I34.0 Nonrheumatic mitral (valve) insufficiency; J44.9 Chronic obstructive pulmonary disease, unspecified; R91.1 Solitary pulmonary nodule; F31.9 Bipolar disorder, unspecified; R11.2 Nausea with vomiting, unspecified; F03.90 Unspecified dementia, unspecified severity, without behavioral disturbance, psychotic disturbance, mood disturbance, and anxiety; E78.5 Hyperlipidemia, unspecified; R32 Unspecified urinary incontinence; K59.00 Constipation, unspecified; H54.7 Unspecified visual loss; Z95.0 Presence of cardiac pacemaker; Z79.51 Long term (current) use of inhaled steroids; Z79.82 Long term (current) use of aspirin; Z79.2 Long term (current) use of antibiotics; Z86.73 Personal history of transient ischemic attack (TIA), and cerebral infarction without residual deficits; Z87.891 Personal history of nicotine dependence
CPT/HCPCS: 36415; 70450; 70496; 70498; 71046; 74177; 80053; 81001; 81003; 83605; 83690; 83735; 84484; 85025; 87077; 87086; 87181; 93005; 93306; 94640; 96361; 96365; 96375; 96376; 99283; 99284; 99406

== ENCOUNTER 2017-10-27 15:50 | Outpatient (CLI) | payer MEDICARE | END 2017-10-27 15:51 | disposition home or self-care (01) | LOC: LAB.R 15:50 | PROVIDERS: ATTEND Family Medicine | DX: N39.0 Urinary tract infection, site not specified (principal); Z95.0 Presence of cardiac pacemaker | CPT/HCPCS: 87086 ==

== ENCOUNTER 2017-10-30 16:09 | Outpatient (CLI) | payer MEDICARE ==
[2017-10-30] MEDS ORDERED: IOPAMIDOL-300 100 ML VIAL ONE (16:33)
[2017-10-30] MEDS ORDERED: IOPAMIDOL-300 100 ML VIAL IVP ONE (16:54)
--- NOTE | 2017-10-31 09:22 | CT Report ---
Procedure Date: 10/30/2017 Accession Number: [id number] / [id number] Procedure: CT - Chest W/ CPT Code: FULL RESULT: EXAM: Chest W/ DATE: 10/30/2017 4:49 PM CLINICAL HISTORY: PULMONARY NODULE COMPARISON: 12/16/2014 TECHNIQUE: Routine helical CT imaging was performed through the chest. IV contrast: 80 mL Isovue 300 intravenously Reconstructions: Coronal and sagittal. In accordance with CT protocol optimization, one or more of the following dose reduction techniques were utilized for this exam: automated exposure control, adjustment of mA and/or KV based on patient size, or use of iterative reconstructive technique. FINDINGS: Lungs/Pleura: The nodule at the right apex has increased in size, now measuring 1.3 x 1.3 cm, and demonstrates increased spiculation of the margins. Mediastinum: New right hilar adenopathy, with a right upper lobe hilar node measuring 2.0 x 1.4 cm. Bones: Degenerative changes. Visualized Abdomen: Bilateral adrenal fullness, without discrete nodule. Other: Stable pacemaker. IMPRESSION: Interval increase in size of spiculated nodule in the right upper lobe, now with right hilar adenopathy, suspicious for malignancy. Consider further evaluation with biopsy or PET/CT. [facility]
== END 2017-10-30 16:10 | disposition home or self-care (01) ==
LOC: DI 16:09
PROVIDERS: ATTEND Family Medicine
DX: R91.1 Solitary pulmonary nodule (principal); R59.0 Localized enlarged lymph nodes
CPT/HCPCS: 71260; Q9967

== ENCOUNTER 2017-10-30 21:03 | Outpatient (CLI) | payer MEDICARE | END 2017-10-30 21:04 | disposition critical access hospital (66) | LOC: EMS 21:03 | PROVIDERS: ATTEND Surgery | DX: R07.89 Other chest pain (principal) | CPT/HCPCS: A0425; A0427 ==

== ENCOUNTER 2018-02-05 16:15 | Outpatient (CLI) | payer MEDICARE | END 2018-02-05 16:16 | disposition home or self-care (01) | LOC: LAB 16:15 | PROVIDERS: ATTEND Specialist | DX: R41.89 Other symptoms and signs involving cognitive functions and awareness (principal); R20.0 Anesthesia of skin | CPT/HCPCS: 82607 ==

== ENCOUNTER 2018-07-15 08:00 | Outpatient (CLI) | payer MEDICARE | END 2018-07-15 23:59 | disposition home or self-care (01) | LOC: LAB.R 08:00 | PROVIDERS: ATTEND Family Medicine | DX: N39.0 Urinary tract infection, site not specified (principal) | CPT/HCPCS: 87077; 87086; 87181 ==

== ENCOUNTER 2018-07-18 08:00 | Outpatient (CLI) | payer MEDICARE | END 2018-07-18 23:59 | disposition home or self-care (01) | LOC: LAB.R 08:00 | PROVIDERS: ATTEND Family Medicine | DX: R41.82 Altered mental status, unspecified (principal) | CPT/HCPCS: 82565 ==

== ENCOUNTER 2018-07-18 09:52 | Outpatient (CLI) | payer MEDICARE ==
[2018-07-18] MEDS ORDERED: IOPAMIDOL-300 100 ML VIAL ONE (10:43)
--- NOTE | 2018-07-19 15:42 | CT Report ---
Reason: MENTAL STATUS CHANGE,LUNG CANCER Procedure Date: 07/18/2018 Accession Number: [id number] / [id number] Procedure: CT - HEAD W CPT Code: FULL RESULT: EXAM: CT HEAD WITH CONTRAST EXAM DATE: 07/18/2018 10:48 AM. CLINICAL HISTORY: 72-year-old with history of lung cancer presenting with mental status change including disorientation and confusion. Evaluate for intracranial pathology. COMPARISON: CT head 02/05/2018. TECHNIQUE: Multiaxial CT images were obtained from the foramen magnum to the vertex after contrast administration. Reformats: Sagittal and coronal. IV contrast: 100 cc Isovue-300. In accordance with CT protocol optimization, one or more of the following dose reduction techniques were utilized for this exam: automated exposure control, adjustment of mA and/or KV based on patient size, or use of iterative reconstructive technique. FINDINGS: Parenchyma: No acute parenchymal hemorrhage, mass, or midline shift. There is small volume encephalomalacia and gliosis involving the medial posterior left occipital lobe that appears similar to 08/2017. There is superimposed additional mild bilateral areas of white matter hypoattenuation seen that appears similar to prior study. There is no convincing CT evidence of acute infarct. Cortical volume appears age-appropriate. No abnormal postcontrast enhancement. Extraaxial Spaces: No subdural or epidural collections identified. Cisterns appear patent. No abnormal postcontrast enhancement. Ventricles: Normal in size and position. Sinuses and Orbits: Changes of bilateral lens replacement. Visualized paranasal sinuses, mastoid air cells, and middle ear cavities appear clear. Bones: There are lytic lucencies seen within the right and left frontal calvarium that may represent prominent vascular spaces that are similar to prior studies. Other: Vascular calcifications of the cavernous ICA segments. Otherwise the visualized vasculature appears normal. IMPRESSION: 1. No definite intracranial metastatic disease is seen. Please note that CT is not sensitive enough to detect micrometastases and if clinically indicated an MR brain should be considered. 2. No definite acute intracranial pathology seen; specifically, no acute infarct, acute intracranial hemorrhage, mass, hydrocephalus, or midline shift. No abnormal postcontrast enhancement. 3. Small volume encephalomalacia and gliosis involving the medial and posterior left occipital lobe similar to CT head 02/05/2018 and may represent region of prior infarct or trauma. 4. Additional white matter changes seen that appear similar to CT head 02/05/2018 and may represent sequelae of chronic small vessel ischemic disease. RAD[facility]
--- NOTE | 2018-07-20 01:29 | XRAY Report ---
Reason: MENTAL STATUS CHANGE,LUNG CANCER,KNEE PAIN,RT Procedure Date: 07/18/2018 Accession Number: [id number] / [id number] Procedure: XR - Knee 3 View RT CPT Code: FULL RESULT: EXAM: RIGHT KNEE RADIOGRAPHY EXAM DATE: 07/18/2018 10:29 AM. CLINICAL HISTORY: MENTAL STATUS CHANGE,LUNG CANCER,KNEE PAIN,RT. Fell and landed on knee Yesterday. Knee is very swollen and painful. COMPARISON: None. TECHNIQUE: 3 views. FINDINGS: Bones are demineralized. No evidence for acute fracture. Mild tricompartment degenerative joint disease with osteophytes. Minimal lateral subluxation of the patella at the patellofemoral joint. No knee joint effusion. Anterior knee soft tissue contusion with swelling. Arterial calcifications noted. IMPRESSION: No evidence for acute fracture. Mild tricompartment degenerative joint disease. Minimal lateral subluxation of the patella at the patellofemoral joint. Anterior knee soft tissue contusion with swelling. RAD[facility]
== END 2018-07-18 09:53 | disposition home or self-care (01) ==
LOC: DI 09:52
PROVIDERS: ATTEND Family Medicine
DX: G93.89 Other specified disorders of brain (principal); R41.82 Altered mental status, unspecified; C34.90 Malignant neoplasm of unspecified part of unspecified bronchus or lung; M17.11 Unilateral primary osteoarthritis, right knee; S83.091A Other subluxation of right patella, initial encounter; S80.01XA Contusion of right knee, initial encounter
CPT/HCPCS: 70460; 73562; 82565; Q9967

== ENCOUNTER 2018-08-14 15:14 | Outpatient (CLI) | payer MEDICARE, MEDICAID ==
--- NOTE | 2018-08-14 15:49 | XRAY Report ---
Reason: COPD,LUNG CANCER Procedure Date: 08/14/2018 Accession Number: [id number] / [id number] Procedure: WCP - Chest 2 View X-Ray CPT Code: 40684 FULL RESULT: EXAM: CHEST RADIOGRAPHY EXAM DATE: 08/14/2018 03:37 PM. CLINICAL HISTORY: COPD, lung cancer. COMPARISON: CHEST 2 VIEW 10/12/2017 12:16 PM. CHEST W/ 10/30/2017 4:37 PM. TECHNIQUE: 2 views. FINDINGS: Lungs/Pleura: No focal opacities evident. No pleural effusion. No pneumothorax. Flattened diaphragms and high lung volumes. A subtle opacity near the right upper lung corresponds to the location of the lung cancer demonstrated on prior CT. Mediastinum: Stable cardiomediastinal silhouette with unchanged pacemaker lead position and subtle calcification of the aortic arch, heart is not enlarged. Other: None. IMPRESSION: Obstructive lung disease without acute airspace consolidation detected. RAD[facility]
== END 2018-08-14 15:15 | disposition home or self-care (01) ==
LOC: DI.WCP 15:14
PROVIDERS: ATTEND Family Medicine
DX: J44.9 Chronic obstructive pulmonary disease, unspecified (principal); C34.90 Malignant neoplasm of unspecified part of unspecified bronchus or lung
CPT/HCPCS: 71046

== ENCOUNTER 2018-11-10 08:00 | Outpatient (CLI) | payer MEDICARE, MEDICAID | END 2018-11-10 23:59 | disposition home or self-care (01) | LOC: LAB.R 08:00 | PROVIDERS: ATTEND Family Medicine | DX: N39.0 Urinary tract infection, site not specified (principal) | CPT/HCPCS: 87086 ==

== ENCOUNTER 2019-01-05 16:02 | Outpatient (CLI) | payer MEDICARE, MEDICAID | END 2019-01-05 16:03 | disposition critical access hospital (66) | LOC: EMS 16:02 | PROVIDERS: ATTEND Surgery | DX: R41.0 Disorientation, unspecified (principal); R50.9 Fever, unspecified | CPT/HCPCS: A0425; A0429 ==

== ENCOUNTER 2019-01-05 16:22 | Observation (INO) | payer MEDICARE, MEDICAID ==
--- NOTE | 2019-01-05 16:30 | ED Physician Documentation ---
PD HPI MHE - Stated complaint Stated Complaint: ALOC - History obtained from History obtained from: Patient, EMS - History of Present Illness Primary symptom: Other (73-year-old woman presents from assisted living/memory care with worse mental status than normal over the last 4 days or so. A urine dip was done and positive. There was a report of a "low-grade" fever of 99 degrees. Patient feels fine. She is a reasonable historian. She knows she is it would be general and can come up with the year. 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: Other (hysterectomy) : Incontinence, Nocturia, Frequency HEENT: Chronic vision loss, Chronic sinusitis Psych: Depression, Bipolar disorder Musculoskeletal: Fatigue Derm: None - Past Surgical History Past Surgical History: Yes General: Appendectomy, Colonoscopy /TINNING EQUIPMENT TENDER: section, Hysterectomy Cardiovascular: Pacemaker HEENT: Cataracts Derm: Skin grafts - Present Medications Home Medications: Ambulatory Orders Medication Instructions Recorded Confirmed RX: Zolpidem [Ambien] 10 mg ORAL QPM PRN 02/16/14 01/28/18 RX: Timolol 0.5% Ophth Drops 1 drops RIGHTEYE BID 08/15/17 01/28/18 [Timoptic 0.5% Ophth Drops] RX: Albuterol Sulfate [Proair Hfa 2 puffs INH Q4H PRN 10/12/17 01/28/18 Inhaler] RX: Bupropion HCl [Bupropion HCl 150 mg PO Q12H 10/12/17 01/28/18 Sr] RX: Carbamazepine 200 mg PO TID 10/12/17 01/28/18 RX: Ipratropium/Albuterol [Duoneb] 3 ml INH QID PRN 10/12/17 01/28/18 RX: Multivitamin [Theragran] 1 tab PO DAILY 10/12/17 01/28/18 RX: Oxybutynin Chloride [Ditropan 10 mg PO DAILY 10/12/17 01/28/18 Xl] RX: Aspirin [Alireza] 325 mg PO DAILYWM #30 tablet 10/15/17 01/28/18 RX: Ibuprofen [Motrin] 600 mg PO Q6HR PRN #90 tablet 10/15/17 01/28/18 RX: Lisinopril 10 mg PO DAILY #30 tablet 10/15/17 01/28/18 RX: Polyethylene Glycol 3350 17 gm PO DAILY #30 packet 10/15/17 01/28/18 [Miralax] RX: Spironolactone [Aldactone] 12.5 mg PO DAILY #15 tablet 10/15/17 01/28/18 Docusate Sodium [Colace Clear] 2 cap ORAL DAILY 01/28/18 01/28/18 Latanoprost [Xalatan] 1 drops EACHEYE DAILY 01/28/18 01/28/18 Mometasone/Formoterol [Dulera 100 2 inh INH BID 01/28/18 01/28/18 Mcg/5 Mcg Inhaler] RX: Clopidogrel Bisulfate 75 mg ORAL DAILY 01/28/18 01/28/18 [Clopidogrel] RX: Atorvastatin Calcium 40 mg PO DAILY 01/05/19 RX: Brimonidine 0.2% Ophth Drops 01/05/19 [Alphagan P 0.2% Ophth Drops] RX: Metoprolol Succinate 50 mg PO BID 01/05/19 RX: cephALEXin [Keflex] 250 mg PO DAILY 01/05/19 - Allergies Allergies/Adverse Reactions: Allergies Allergy/AdvReac Type Severity Reaction Status Date / Time Sulfa (Sulfonamide AdvReac Rash Verified 01/19/17 12:12 Antibiotics) - Social History Does the pt smoke?: No Smoking Status: Current every day smoker Does the pt drink ETOH?: No Does the pt have substance abuse?: No - Immunizations Immunizations are current?: Yes - POLST Patient has POLST: Yes POLST Status: Full Code PD ED PE NORMAL - Vitals Vital signs reviewed: Yes - General General: No acute distress, Other (She is alert and oriented to person place, year but not date. Not why she is here.) - HEENT HEENT: PERRL, EOMI - Neck Neck: Supple, no meningeal sign, No bony TTP - Cardiac Cardiac: RRR, No murmur - Respiratory Respiratory: Other (Coarse breath sounds right upper lobe) - Abdomen Abdomen: Non tender - Extremities Extremities: No edema, No calf tenderness / cord, Other (She is bruised over the dorsum of the left hand but without corresponding tenderness or limited range of motion. She does not recall an injury.) - Neuro Neuro: Alert and oriented X 3, courtroom clerk 2-12 intact Eye Opening: Spontaneous Motor: Obeys Commands Verbal: Confused GCS Score: 14 - Psych Psych: Normal mood, Normal affect Results - Vitals Vitals: Vital Signs - 24 hr 01/05/19 01/05/19 01/05/19 16:28 17:21 19:09 Temperature 36.9 C Heart Rate 60 58 L 57 L Respiratory 15 16 14 Rate Blood Pressure 114/71 126/70 131/75 H O2 Saturation 99 97 95 Oxygen O2 Source Room air - Labs Labs: Laboratory Tests 01/05/19 01/05/19 01/05/19 09:37 16:40 16:40 WBC 8.9 RBC 4.41 Hgb 12.5 Hct 38.2 MCV 86.6 MCH 28.3 MCHC 32.7 RDW 13.9 Plt Count 267 MPV 9.1 Neut # (Auto) 6.6 Lymph # (Auto) 1.5 [place] # (Auto) 0.7 Eos # (Auto) 0.0 Baso # (Auto) 0.0 Absolute Nucleated RBC 0.00 Nucleated RBC % 0.0 Sodium 131 L Potassium 4.4 Chloride 95 L Carbon Dioxide 25 Anion Gap 11.0 BUN 21 H Creatinine 1.1 H Estimated GFR (MDRD) 48 L Glucose 120 H Lactic Acid 1.0 Calcium 9.4 Total Bilirubin 0.3 AST 24 ALT 17 Alkaline Phosphatase 110 Total Protein 8.1 Albumin 4.0 Globulin 4.1 Albumin/Globulin Ratio 1.0 Lipase 29 Urine Color Urine Clarity Urine pH Ur Specific [place] Urine Protein Urine Glucose (UA) Urine Ketones Urine Occult Blood Urine Nitrite Urine Bilirubin Urine Urobilinogen Ur Leukocyte Esterase Urine RBC Urine WBC Urine WBC Clumps Ur Squamous Epith Cells Urine Bacteria Ur Microscopic Review Urine Culture Comments Last Dose Date Last Dose Time Carbamazepine 01/05/19 01/05/19 16:40 17:08 WBC RBC Hgb Hct MCV MCH MCHC RDW Plt Count MPV Neut # (Auto) Lymph # (Auto) [place] # (Auto) Eos # (Auto) Baso # (Auto) Absolute Nucleated RBC Nucleated RBC % Sodium Potassium Chloride Carbon Dioxide Anion Gap BUN Creatinine Estimated GFR (MDRD) Glucose Lactic Acid Calcium Total Bilirubin AST ALT Alkaline Phosphatase Total Protein Albumin Globulin Albumin/Globulin Ratio Lipase Urine Color YELLOW Urine Clarity CLEAR Urine pH 6.0 Ur Specific [place] 1.015 Urine Protein NEGATIVE Urine Glucose (UA) NEGATIVE Urine Ketones TRACE Urine Occult Blood TRACE-INTA Urine Nitrite POSITIVE H Urine Bilirubin NEGATIVE Urine Urobilinogen 0.2 (NORMAL) Ur Leukocyte Esterase NEGATIVE Urine RBC 6-10 H Urine WBC 11-25 H Urine WBC Clumps PRESENT Ur Squamous Epith Cells RARE Squamous Urine Bacteria Many H Ur Microscopic Review INDICATED Urine Culture Comments INDICATED Last Dose Date UNKNOWN Last Dose Time UNKNOWN Carbamazepine 4.7 - Rads (name of study) 2v chest Radiology: EMP read contemporaneously (NAD, mild nodularity RUL.) CTH w/wo contrast Radiology: EMP read contemporaneously, See rad report PD MEDICAL DECISION MAKING - ED course ED course: The daughter arrived approximately 5:15 PM. Further history from her. This all started while they were at the eye doctor on Friday. She ran into something actually with her head. There is no specific head injury per se. Daughter felt like it might of been started right after they administered some eyedrops but the doctor was consulted and said there were not any eyedrops that were given that would cause her to be altered. The daughter feels this is somewhat atypical of her UTIs, with though she gets more agitated and less listless. 73-year-old woman with underlying dementia her head CT was concerning for a new area of heterogenous encephalomalacia. Given her history of cancer this was concerning for metastatic disease. MRI is not able to be done due to underlying pacemaker, but the radiologist felt that doing it with contrast was a reasonable middle ground and this demonstrated no evidence of metastatic disease. She is quite weak and given her acute decompensation in the midst of UTI will be admitted for further evaluation and treatment. Departure - Departure Disposition: [facility] DC/Xfer Clinical Impression: Altered mental status, Artificial cardiac pacemaker, UTI (urinary tract infection) Condition: Serious Discharge Date/Time: 01/05/19 21:04
[2019-01-05 16:46] LABS: BASOPHILS % (AUTO) 0.4 %; EOSINOPHILS % (AUTO) 0.4 %; HGB - HEMOGLOBIN 12.5 g/dL (12.0-16.0); LYMPHOCYTES # (AUTO) 1.5 10^3/uL (1.5-3.5); LYMPHOCYTES % (AUTO) 16.3 %; MEAN CORPUSCULAR HEMOGLOBIN 28.3 pg (27.0-31.0); MEAN CORPUSCULAR HGB CONC 32.7 g/dL (32.0-36.0); MEAN CORPUSCULAR VOLUME 86.6 fL (81.0-99.0); MEAN PLATELET VOLUME 9.1 fL (7.9-10.8); MONOCYTES # (AUTO) 0.7 10^3/uL (0.0-1.0); MONOCYTES % (AUTO) 8.2 %; NEUTROPHILS # (AUTO) 6.6 10^3/uL (1.5-6.6); NEUTROPHILS % (AUTO) 74.3 %; PLT - PLATELET COUNT 267 10^3/uL (130-450); RED BLOOD COUNT 4.41 10^6/uL (4.20-5.40); RED CELL DISTRIBUTION WIDTH 13.9 % (12.0-15.0); WHITE BLOOD COUNT 8.9 x10^3/uL (4.8-10.8)
[2019-01-05 16:58] LABS: BILIRUBIN,TOTAL 0.3 mg/dL (0.2-1.0); CALCIUM 9.4 mg/dL (8.5-10.3); CREATININE 1.1 mg/dL (0.4-1.0); TOTAL PROTEIN 8.1 g/dL (6.7-8.2)
[2019-01-05 17:04] LABS: CARBAMAZEPINE (TEGRETOL) 4.7 ug/mL
[2019-01-05 17:16] LABS: BILIRUBIN,URINE NEGATIVE (NEGATIVE); GLUCOSE, URINE (UA) NEGATIVE (NEGATIVE); KETONES,URINE (UA) TRACE mg/dL (NEGATIVE); LEUKOCYTE ESTERASE, URINE NEGATIVE (NEGATIVE); NITRITE,URINE POSITIVE (NEGATIVE); OCCULT BLOOD,URINE TRACE-INTA (NEGATIVE); PROTEIN,URINE NEGATIVE (NEGATIVE); UROBILINOGEN,URINE 0.2 (NORMAL) E.U./dL (NORMAL)
[2019-01-05 17:19] LABS: CLARITY,URINE CLEAR (CLEAR)
[2019-01-05 17:28] LABS: BACTERIA,URINE Many /HPF (None Seen); SQUAMOUS EPITHELIAL CELL,UR RARE Squamous (<= Few); WBC CLUMPS,URINE PRESENT
[2019-01-05] MEDS ORDERED: cefTRIAXone 1 GM in SODIUM CHLORIDE 0.9% MINIBAG 100 ML IV STA (17:29)
[2019-01-05] MEDS ORDERED: SODIUM CHLORIDE 0.9% 1,000 ML IV ONE (17:29)
--- NOTE | 2019-01-05 17:43 | XRAY Report ---
Reason: abn breath sounds RUL Procedure Date: 01/05/2019 Accession Number: [id number] / [id number] Procedure: XR - Chest 2 View X-Ray CPT Code: 36910 FULL RESULT: EXAM: CHEST RADIOGRAPHY EXAM DATE: 01/05/2019 05:27 PM. CLINICAL HISTORY: Abnormal breath sounds RUL. COMPARISON: CHEST 2 VIEW 08/14/2018 3:14 PM CHEST W/ 10/30/2017 4:37 PM. TECHNIQUE: 2 views. FINDINGS: Lungs/Pleura: No focal consolidation. There is mild nodularity in the right lung apex. No edema. No pleural effusion. No pneumothorax. Probable COPD. Mediastinum: Heart size within normal limits. Pacemaker in similar position. Other: None. IMPRESSION: No definite acute abnormality. Mild nodularity in the right lung apex could reflect the known pulmonary nodule. RADIA
--- NOTE | 2019-01-05 18:03 | CT Report ---
Reason: altered Procedure Date: 01/05/2019 Accession Number: [id number] / [id number] Procedure: CT - HEAD WO CPT Code: FULL RESULT: EXAM: CT HEAD EXAM DATE: 01/05/2019 05:49 PM. CLINICAL HISTORY: Altered. COMPARISON: HEAD W/ 07/18/2018 10:48 AM. TECHNIQUE: Multiaxial CT images were obtained from the foramen magnum to the vertex. Reformats: Sagittal and coronal. IV contrast: None. In accordance with CT protocol optimization, one or more of the following dose reduction techniques were utilized for this exam: automated exposure control, adjustment of mA and/or KV based on patient size, or use of iterative reconstructive technique. FINDINGS: Parenchyma: Old infarct is seen in left parieto-occipital lobe. However there is increased heterogeneity and size of this infarct as compared to the prior dated 07/18/2018. A superimposed acute on chronic infarct is not excluded. Extraaxial Spaces: Normal for age. No subdural or epidural collections identified. Ventricles: Normal in size and position. Sinuses and Orbits: Imaged paranasal sinuses, orbits, and mastoids show no significant abnormality. Bones: No evidence of fracture or calvarial defect. Other: None. IMPRESSION: Old infarct is seen in left parieto-occipital lobe. However there is increased size and heterogeneity of this infarct as compared to the prior dated 07/18/2018. A superimposed acute on chronic infarct is not excluded. Other differential includes metastasis. [facility] The call report notification system was initiated by Dr. Erum Haas at 05:57 PM on 01/05/2019. The above call report findings were discussed with Orlando Kelly by Dr. Erum Haas at 06:01 PM on 01/05/2019.
[2019-01-05] MEDS ORDERED: IOVERSOL 320 100 ML VIAL IVP ONE ×2 (18:19→19:06)
--- NOTE | 2019-01-05 19:52 | CT Report ---
Reason: F/U Left occiptal abn Procedure Date: 01/05/2019 Accession Number: [id number] / [id number] Procedure: CT - HEAD W CPT Code: FULL RESULT: EXAM: CT HEAD EXAM DATE: 01/05/2019 06:47 PM. CLINICAL HISTORY: F/U Left occiptal abn. Presented with altered mental status. History of lung cancer. COMPARISON: HEAD W/O 01/05/2019 5:42 PM HEAD W/ 07/18/2018 10:48 AM HEAD W/ 02/05/2018 5:02 PM HEAD ANGIO 10/13/2017 3:38 PM CHEST W/ 10/30/2017 4:37 PM. TECHNIQUE: Multiaxial CT images were obtained from the foramen magnum to the vertex. Reformats: Sagittal and coronal. IV contrast: With IV contrast, 80 cc Optiray 320. In accordance with CT protocol optimization, one or more of the following dose reduction techniques were utilized for this exam: automated exposure control, adjustment of mA and/or KV based on patient size, or use of iterative reconstructive technique. FINDINGS: Encephalomalacia and loss of dee-white matter differentiation seen in the left occipital lobe compatible with remote left PACKAGING ENGINEER distribution infarct. Dee-white matter differentiation otherwise preserved. There is no abnormal enhancement to suggest underlying neoplasm. Limited evaluation of the arterial and dural venous sinus structures are unremarkable. There is no mass-effect, midline shift or hydrocephalus. There is mild diffuse cerebral volume loss. IMPRESSION: 1. Left occipital abnormality compatible with remote left PACKAGING ENGINEER distribution infarct. Appearance on CT not significantly changed compared to 02/05/2018. 2. Dee-white matter differentiation otherwise preserved without evidence to suggest acute infarct on CT. 3. No abnormal enhancement to suggest underlying neoplasm. RADIA
[2019-01-05] MEDS ORDERED: ACETAMINOPHEN 325 MG TABLET PO PRN (20:28)
[2019-01-05] MEDS ORDERED: SODIUM CHLORIDE FLUSH 0.9% 10 ML SYRINGE IVP PRN (20:28)
[2019-01-05] MEDS: SODIUM CHLORIDE 0.9% 1,000 ML IV SCH (21:37)
[2019-01-05] MEDS: HEPARIN 5,000 UNIT/ML VIAL SUBQ SCH (21:48)
--- NOTE | 2019-01-05 23:04 | HISTORY & PHYSICAL EXAMINATION ---
Chief Complaint - Chief Complaint Chief Complaint: Altered mental status History of Present Illness - Admitted From Admitted From:: [facility] - History Obtained From Records Reviewed: Yes History obtained from: ER Physician, Patient's daughter Exam Limitations: Altered mental status - History of Present Illness HPI Comment/Other: This is a 73 year old female with a past medical history significant for sick sinus syndrome s/p pacemaker, COPD, CVA w/o residual deficits, dementia, recurrent UTI on chronic suppressive therapy, and lung cancer who presented from [facility] due to change in her mental status. History is primarily obtained from the patient's daughter as the patient is not a reliable historian. The patient's daughter states that at baseline, the patient knows the month, year, and is able to converse and recognize family members. The daughter first noticed something was different about the patient when she went to her ophthalmology appointment this past friday for her glaucoma. The patient had difficulty walking shortly after and walked into a sign. The independent trader told the daughter that none of the drops she receiving during the appoint could cause those symptoms and recommended ER evaluation if there was significant concern. The patient was slightly improved so daughter took her back to assisted living. Normally, the patient leaves her room to have her meals but this past , she stayed in her room and the staff members brought the meals to her. The patient's daughter received a phone call today from a nurse that the patient did not appear her usual self and therefore she was brought to the ER for further evaluation. The patient currently has no complaints. She believes she has been at the hospital for almost a week and is about to be discharged. She does not know the year or month. Her daughter reports that although she has dementia at baseline, this is definitely not her baseline. She does have a history of recurrent UTI's with the last one being a few months ago and did not require hospitalization. She is currently on chronic suppressive therapy with Keflex but was previously on Macrobid. The daughter reports that the patient usually becomes aggressive when she has UTI's and that her current presentation is not similar to prior episodes. In the ER, she was afebrile and vitals were unremarkable. Labs were significant for a sodium of 131. Urinalysis revealed pyuria, bacteria, and nitrites. She has no leukocytosis. CT of the head showed an old infarct. There was concern for a possible metastatic lesion given her history of lung cancer and because she can not get an MRI due to her pacemaker, a repeat CT of the head with contrast was completed which confirmed that the suspicious area on initial CT was not a metastatic lesion. She will be admitted for further management. Of note, I did speak with the daughter regarding goals of care. The patient has a POLST stating she is full code. The daughter will discuss with her older brother regarding making the patient DNR but for the time being, the patient will be a full code. History - Past Medical History Cardiovascular: reports: Hypertension, High cholesterol, Other Respiratory: reports: COPD Neuro: reports: CVA Endocrine/Autoimmune: reports: None GI: reports: GERD, Other (Ischemic enteritis) : reports: Incontinence, Nocturia, Frequency HEENT: reports: Chronic vision loss, Glaucoma, Chronic sinusitis Psych: reports: Depression, Bipolar disorder Musculoskeletal: reports: Fatigue Derm: reports: None MRSA Hx?: No - Past Surgical History General: reports: Appendectomy, Colonoscopy /RETAIL LEADER: reports: section, Hysterectomy Cardiovascular: reports: Pacemaker HEENT: reports: Cataracts Derm: reports: Skin grafts - Family & Social History Family History: Mother: , CAD, Diabetes, Type 2, Father: , CAD, Sister: , CAD, Cancer, Renal Disease/Failure, Brother: CAD, Cancer Family History Comment/Other: The patient's mother had heart disease and diabetes. Father had cardiac disease. The patient had one brother with lung cancer who was a non-smoker. This history was obtained from the daughter. Living arrangement: Assisted living Social History Notes: The patient has lived at [facility] for nearly two years. 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 She has a twin brother. She has two children. She has a 60 pack year smoking history but quite a couple of years ago. This history is obtained from the daughter. - Substance History Use: Uses substance without health or social issues: NONE - POLST Patient has POLST: Yes POLST Status: Full Code Meds/Allgy - Home Medications Home Medications: Ambulatory Orders Medication Instructions Recorded Confirmed Zolpidem [Ambien] 10 mg ORAL QPM PRN 02/16/14 01/28/18 Timolol 0.5% Ophth Drops [Timoptic 1 drops RIGHTEYE BID 08/15/17 01/28/18 0.5% Ophth Drops] Albuterol Sulfate [Proair Hfa 2 puffs INH Q4H PRN 10/12/17 01/28/18 Inhaler] Bupropion HCl [Bupropion HCl Sr] 150 mg PO Q12H 10/12/17 01/28/18 Carbamazepine 200 mg PO TID 10/12/17 01/28/18 Ipratropium/Albuterol [Duoneb] 3 ml INH QID PRN 10/12/17 01/28/18 Multivitamin [Theragran] 1 tab PO DAILY 10/12/17 01/28/18 Oxybutynin Chloride [Ditropan Xl] 10 mg PO DAILY 10/12/17 01/28/18 Aspirin [Alireza] 325 mg PO DAILYWM #30 tablet 10/15/17 01/28/18 Ibuprofen [Motrin] 600 mg PO Q6HR PRN #90 tablet 10/15/17 01/28/18 Lisinopril 10 mg PO DAILY #30 tablet 10/15/17 01/28/18 Polyethylene Glycol 3350 [Miralax] 17 gm PO DAILY #30 packet 10/15/17 01/28/18 Spironolactone [Aldactone] 12.5 mg PO DAILY #15 tablet 10/15/17 01/28/18 Clopidogrel Bisulfate [Clopidogrel] 75 mg ORAL DAILY 01/28/18 01/28/18 Docusate Sodium [Colace Clear] 2 cap ORAL DAILY 01/28/18 01/28/18 Latanoprost [Xalatan] 1 drops EACHEYE DAILY 01/28/18 01/28/18 Mometasone/Formoterol [Dulera 100 2 inh INH BID 01/28/18 01/28/18 Mcg/5 Mcg Inhaler] Atorvastatin Calcium 40 mg PO DAILY 01/05/19 Brimonidine 0.2% Ophth Drops 01/05/19 [Alphagan P 0.2% Ophth Drops] Metoprolol Succinate 50 mg PO BID 01/05/19 cephALEXin [Keflex] 250 mg PO DAILY 01/05/19 - Allergies Allergies/Adverse Reactions: Allergies Allergy/AdvReac Type Severity Reaction Status Date / Time Sulfa (Sulfonamide AdvReac Rash Verified 01/19/17 12:12 Antibiotics) Review of Systems - Other Findings Other Findings: Unable to obtain ROS as patient says "no" to every question and is currently encephalopathic. Daugther confirms that she is altered. Prior Level of Functionality: She lives at Assisted living but normally ambulates with a walker. She is able to eat on her own and appears to be independent with most ADL's. Exam - Vital Signs Reviewed Vital Signs: Yes Vital Signs: Vital Signs x48h Temp Pulse Pulse Resp BP BP Pulse Ox 01/05/19 21:23 36.6 C 59 L 20 95/54 L 96 01/05/19 19:09 57 L 14 131/75 H 95 01/05/19 17:21 58 L 16 126/70 97 01/05/19 16:28 36.9 C 60 15 114/71 99 - Physical Exam General Appearance: positive: No acute distress, Alert Eyes Bilateral: positive: PERRL, Conjunctivae nml ENT: positive: ENT inspection nml, Dry mucous membranes Neck: positive: Nml inspection Respiratory: positive: No respiratory distress. negative: Wheezes, Rales, Rhonchi Cardiovascular: positive: Regular rate & rhythm, No murmur. negative: Tachycard ia, Bradycardia, Systolic murmur, Diastolic murmur Abdomen: positive: Non-tender, Nml bowel sounds, No distention. negative: Tenderness, Guarding, Rebound Skin: positive: Color nml, No rash, Warm, Dry Extremities: positive: Non-tender, Full ROM, No pedal edema Neurologic/Psychiatric: positive: Motor nml, Sensation nml, Disoriented to place, Disoriented to time. negative: Disoriented to person, Facial droop, Slurred/abnml speech Conclusion/Plan - Problem List (1) Encephalopathy Conclusion/Plan: Suspect this is secondary to her UTI given her urinalysis findings. Imaging of the head without evidence of an acute process. No focal deficits on exam. She is disoriented but very pleasant. - IV Ceftriaxone - Hold home ambien given her mental status - Avoid medications that can cause delirium (2) UTI (urinary tract infection) Conclusion/Plan: Suspect this is the cause of her encephalopathy. Has history of recurrent UTI's and is on Keflex for suppressive therapy. Urinalysis positive for pyuria, bacteria, and nitrites. Past cultures grew klebsiella sensitive to ceftriaxone. No evidence of sepsis. - Ceftriaxone IV - Follow up urine culture Qualifiers: Urinary tract infection type: site unspecified Hematuria presence: without hematuria Qualified Code(s): N39.0 - Urinary tract infection, site not specified (3) Dementia Conclusion/Plan: She has dementia and currently resides at [facility]. Oriented to self, location, year and month at baseline per daughter. Not at baseline. - Treat underlying UTI - Avoid medications that may cause delirium (4) Lung cancer Conclusion/Plan: Diagnosed last year and followed with Heme/Onc in [facility] clinic. Family decided against pursuing tissue biopsy as they did not want treatment. CT of the brain without evidence of metastasis. - Will away family discussion regarding goals of care as it appears they will likely sign a new POLST form that will make the patient DNR. For time being, she is full code. (5) Bipolar disorder Conclusion/Plan: Stable. On Carbamazepine. - Continue home medication (6) COPD (chronic obstructive pulmonary disease) Conclusion/Plan: She is on Dulera. Stable and not in exacerbation. - Duoneb PRN (7) History of CVA (cerebrovascular accident) Conclusion/Plan: Diagnosed last year. No residual deficits. On ASA/Plavix and statin. - Continue home medications (8) Cardiac pacemaker Conclusion/Plan: Has pacemaker in place for history of sick sinus syndrome. Currently is A-paced on telemetry. On Metoprolol at home. - Likely resume Metoprolol in AM (9) Hypertension Conclusion/Plan: On Lisinopril, Metoprolol, and Aldactone at home. Currently normotensive. - Hold home antihypertensives for time being as she is normotensive (10) Glaucoma Conclusion/Plan: Has severe glaucoma in right eye. Significantly diminished vision loss of right eye at baseline. On Timolol and Latanoprost at home. - Resume home eye drops - Lab Results Lab results reviewed: Yes Fish Bones: 01/05/19 16:40 01/05/19 16:40 - Diagnostic Imaging Results Diagnostic Imaging Results: positive: Final report reviewed Core Measures - Anticipated LOS I expect patient to be DC'd or transferred within 96 hours.: Yes - Issues Hospital Issues and Management Plan: Encephalopathy secondary to UTI requiring IV antibiotics. - DVT/VTE - Prophylaxis VTE/DVT Device ordered at admit?: Yes VTE/DVT Prophylaxis med ordered at admit?: Yes
[2019-01-05] MEDS ORDERED: IPRATROPIUM/ALBUTEROL 3 ML NEB INH PRN (23:21)
[2019-01-06] MEDS: SODIUM CHLORIDE FLUSH 0.9% 10 ML SYRINGE IVP SCH ×3 (00:27→16:15)
[2019-01-06 05:23] LABS: BASOPHILS % (AUTO) 0.6 %; EOSINOPHILS # (AUTO) 0.1 10^3/uL (0.0-0.7); EOSINOPHILS % (AUTO) 1.1 %; HGB - HEMOGLOBIN 10.6 g/dL (12.0-16.0); LYMPHOCYTES # (AUTO) 1.9 10^3/uL (1.5-3.5); LYMPHOCYTES % (AUTO) 26.9 %; MEAN CORPUSCULAR HEMOGLOBIN 27.3 pg (27.0-31.0); MEAN CORPUSCULAR HGB CONC 30.5 g/dL (32.0-36.0); MEAN CORPUSCULAR VOLUME 89.4 fL (81.0-99.0); MEAN PLATELET VOLUME 9.7 fL (7.9-10.8); MONOCYTES # (AUTO) 0.7 10^3/uL (0.0-1.0); MONOCYTES % (AUTO) 9.3 %; NEUTROPHILS # (AUTO) 4.5 10^3/uL (1.5-6.6); PLT - PLATELET COUNT 228 10^3/uL (130-450); RED BLOOD COUNT 3.88 10^6/uL (4.20-5.40); RED CELL DISTRIBUTION WIDTH 14.2 % (12.0-15.0); WHITE BLOOD COUNT 7.2 x10^3/uL (4.8-10.8)
[2019-01-06 05:38] LABS: CALCIUM 8.5 mg/dL (8.5-10.3); CREATININE 0.8 mg/dL (0.4-1.0); PHOSPHORUS 3.2 mg/dL (2.5-4.6)
[2019-01-06] MEDS: SODIUM CHLORIDE 0.9% 1,000 ML IV SCH ×2 (06:03→19:08)
[2019-01-06] MEDS: carBAMazepine 200 MG TABLET PO SCH ×3 (06:03→22:12)
[2019-01-06] MEDS ORDERED: ASPIRIN 325 MG TABLET PO SCH (08:00)
[2019-01-06] MEDS: POLYETHYLENE GLYCOL 3350 17 GM PACKET PO SCH (08:25)
[2019-01-06] MEDS: buPROPion SR 150 MG TABLET PO SCH ×2 (08:26→20:25)
[2019-01-06] MEDS: TIMOLOL 0.5% OPHTH DROPS RIGHTEYE SCH ×2 (08:27→20:26)
[2019-01-06] MEDS: HEPARIN 5,000 UNIT/ML VIAL SUBQ SCH ×2 (08:28→20:22)
[2019-01-06] MEDS ORDERED: CLOPIDOGREL 75 MG TABLET PO SCH (09:00)
[2019-01-06] MEDS ORDERED: IBUPROFEN 600 MG TABLET PO PRN (13:53)
[2019-01-06] MEDS ORDERED: IPRATROPIUM/ALBUTEROL 3 ML NEB INH PRN (13:53)
[2019-01-06] MEDS ORDERED: ALBUTEROL NEB 2.5 MG/3 ML INH PRN (13:55)
[2019-01-06] MEDS ORDERED: BUPROPION HCL 150 MG PO SCH (14:00)
[2019-01-06] MEDS ORDERED: cefTRIAXone 1 GM in SODIUM CHLORIDE 0.9% MINIBAG 100 ML IV SCH (17:00)
--- NOTE | 2019-01-06 18:42 | PROVIDER PROGRESS NOTE ---
Assessment/Plan - Problem List (1) Encephalopathy Assessment/Plan: The daughter and I were in the patient's room and the daughter witnessed her answers and speech and reported that the patient is still not at her baseline. The patient did not know her , location, but was oriented to person. In addition, with her previous multiple UTIs, the patient was "angry" and this time she is more withdrawn, less communicative and is pleasant. This made the daughter suspect that another diagnosis is currently causing the change in mental status. Will continue teatment of underlying dehydration and infection. If no improvement in 48 hours, will consider repeating a CT with contrast to evaluate for developments. The daughter was agreeable with that plan. (2) UTI (urinary tract infection) Qualifiers: Urinary tract infection type: site unspecified Hematuria presence: without hematuria Qualified Code(s): N39.0 - Urinary tract infection, site not specified Assessment/Plan: Waiting urine culture results, which are turning positive. Blood cultures are neg thus far. Pt on empiric Ceftriaxone, which her prior bacteria were sensative to, and was the chosen antibiotics by the admitting Yoga Coordinator. (3) Dementia Assessment/Plan: Chronic. But she is very functional, lives at Assisted Living. (4) Lung cancer Assessment/Plan: The daughter reports that the family has chosen not to pursue further work-up or start chemo have surgery. (5) Bipolar disorder Assessment/Plan: Continue pre-hospital meds. (6) COPD (chronic obstructive pulmonary disease) Assessment/Plan: Continue her multiple nebs while here. No signs of COPD exacerbation currently. (7) History of CVA (cerebrovascular accident) Assessment/Plan: Chronic. (8) Cardiac pacemaker Assessment/Plan: Stable. (9) Hypertension Assessment/Plan: Continue pre-hospital BP meds. (10) Glaucoma Assessment/Plan: Plan to continue her eye drops. - Current Meds Current Meds: Current Medications Generic Name Dose Route Start Last Admin Trade Name Freq PRN Reason Stop Dose Admin Bupropion HCl 150 mg 01/06/19 09:00 01/06/19 08:26 Wellbutrin Sr PO 150 mg BID BRIGID Administration Heparin Sodium (Porcine) 5,000 unit 01/05/19 21:00 01/06/19 08:28 SUBQ 5,000 unit BID BRIGID Administration Sodium Chloride 1,000 mls @ 100 mls/hr 01/05/19 21:00 01/06/19 06:03 Normal Saline 0.9% IV 100 mls/hr .Q10H BRIGID Administration Ceftriaxone Sodium 1 gm/ 100 mls @ 200 mls/hr 01/06/19 17:00 01/06/19 16:15 Sodium Chloride IV 200 mls/hr Q24H BRIGID Administration Polyethylene Glycol 17 gm 01/06/19 09:00 01/06/19 08:25 Miralax PO 17 gm DAILY BRIGID Administration Sodium Chloride 10 ml 01/06/19 01:00 01/06/19 16:15 Normal Saline Flush 0.9% IVP 10 ml 0100,0900,1700 BRIGID Administration Timolol Maleate 1 drops 01/06/19 09:00 01/06/19 08:27 Timoptic 0.5% Ophth Drops RIGHTEYE 1 drops BID BRIGID Administration - Lab Result Fish Bone Diagrams: 01/07/19 05:00 01/07/19 05:00 - Additional Planning My Orders: My Active Orders 01/06/19 13:53 Ibuprofen [Motrin] 600 mg PO Q6HR PRN Ipratropium/Albuterol [Duoneb] 3 ml INH QID PRN 01/06/19 13:55 Albuterol 2.5 mg INH RTQ4H PRN 01/06/19 19:00 Budesonide [Pulmicort] 0.5 mg INH RTBID Formoterol Fumarate [Perforomist] 20 mcg INH RTBID 01/06/19 22:00 Ipratropium/Albuterol [Duoneb] 3 ml INH TID carBAMazepine [TEGretol] 200 mg PO TID 01/07/19 08:00 Aspirin [Alireza] 325 mg PO DAILYWM 01/07/19 09:00 Clopidogrel [Plavix] 75 mg PO DAILY Subjective - Subjective Patient Reports: No Complaints, Other (Answers me with 1-2 word sentences.) Objective Vital Signs: Vital Signs - 24 hr 01/05/19 01/05/19 01/06/19 19:09 21:23 00:00 Temperature 36.6 C 36.4 C L Heart Rate 57 L Heart Rate [ 59 L 62 Brachial] Respiratory 14 20 16 Rate Blood Pressure 131/75 H Blood Pressure 95/54 L 121/66 [Right Brachial artery] O2 Saturation 95 96 97 01/06/19 01/06/19 01/06/19 05:10 07:45 09:27 Temperature 36.9 C 36.7 C Heart Rate 58 L Heart Rate [ 60 58 L Brachial] Respiratory 16 14 17 Rate Blood Pressure Blood Pressure 130/63 113/69 [Right Brachial artery] O2 Saturation 97 96 01/06/19 01/06/19 01/06/19 11:49 12:01 15:58 Temperature 36.7 C 36.2 C L 36.8 C Heart Rate 60 Heart Rate [ 60 62 Brachial] Respiratory 18 20 24 Rate Blood Pressure Blood Pressure 99/62 106/61 [Right Brachial artery] O2 Saturation 96 96 97 Oxygen O2 Source Room air I&O (Last 24 Hrs): Intake and Output Totals x24h 01/04/19 01/05/19 01/06/19 23:59 23:59 23:59 Intake Total 1175 1233.333 Balance 1175 1233.333 General: Alert HEENT: Mucous membr. moist/pink Neck: Supple, No JVD Neuro: Disoriented Cardiovascular: Regular rate, No murmurs Respiratory: No respiratory distress, Breath sounds nml Abdomen: Normal bowel sounds, Soft Extremities: No edema - Results Results: Laboratory Results WBC 7.2 x10^3/uL (4.8-10.8) 01/06/19 05:15 RBC 3.88 10^6/uL (4.20-5.40) L 01/06/19 05:15 Hgb 10.6 g/dL (12.0-16.0) L 01/06/19 05:15 Hct 34.7 % (37.0-47.0) L 01/06/19 05:15 MCV 89.4 fL (81.0-99.0) 01/06/19 05:15 MCH 27.3 pg (27.0-31.0) 01/06/19 05:15 MCHC 30.5 g/dL (32.0-36.0) L 01/06/19 05:15 RDW 14.2 % (12.0-15.0) 01/06/19 05:15 Plt Count 228 10^3/uL (130-450) 01/06/19 05:15 MPV 9.7 fL (7.9-10.8) 01/06/19 05:15 Neut # (Auto) 4.5 10^3/uL (1.5-6.6) 01/06/19 05:15 Lymph # (Auto) 1.9 10^3/uL (1.5-3.5) 01/06/19 05:15 [place] # (Auto) 0.7 10^3/uL (0.0-1.0) 01/06/19 05:15 Eos # (Auto) 0.1 10^3/uL (0.0-0.7) 01/06/19 05:15 Baso # (Auto) 0.0 10^3/uL (0.0-0.1) 01/06/19 05:15 Absolute Nucleated RBC 0.00 x10^3/uL 01/06/19 05:15 Nucleated RBC % 0.0 /100WBC 01/06/19 05:15 Sodium 137 mmol/L (135-145) 01/06/19 05:15 Potassium 4.2 mmol/L (3.5-5.0) 01/06/19 05:15 Chloride 107 mmol/L (101-111) 01/06/19 05:15 Carbon Dioxide 22 mmol/L (21-32) 01/06/19 05:15 Anion Gap 8.0 (6-13) 01/06/19 05:15 BUN 17 mg/dL (6-20) 01/06/19 05:15 Creatinine 0.8 mg/dL (0.4-1.0) 01/06/19 05:15 Estimated GFR (MDRD) 70 (>89) L 01/06/19 05:15 Glucose 92 mg/dL (70-100) 01/06/19 05:15 Lactic Acid 1.0 mmol/L (0.5-2.2) 01/05/19 09:37 Calcium 8.5 mg/dL (8.5-10.3) 01/06/19 05:15 Phosphorus 3.2 mg/dL (2.5-4.6) 01/06/19 05:15 Magnesium 2.0 mg/dL (1.7-2.8) 01/06/19 05:15 Total Bilirubin 0.3 mg/dL (0.2-1.0) 01/05/19 16:40 AST 24 IU/L (10-42) 01/05/19 16:40 ALT 17 IU/L (10-60) 01/05/19 16:40 Alkaline Phosphatase 110 IU/L (42-121) 01/05/19 16:40 Total Protein 8.1 g/dL (6.7-8.2) 01/05/19 16:40 Albumin 4.0 g/dL (3.2-5.5) 01/05/19 16:40 Globulin 4.1 g/dL (2.1-4.2) 01/05/19 16:40 Albumin/Globulin Ratio 1.0 (1.0-2.2) 01/05/19 16:40 Lipase 29 U/L (22-51) 01/05/19 16:40 Urine Color YELLOW 01/05/19 17:08 Urine Clarity CLEAR (CLEAR) 01/05/19 17:08 Urine pH 6.0 PH (5.0-7.5) 01/05/19 17:08 Ur Specific Al[place]in 1.015 (1.002-1.030) 01/05/19 17:08 Urine Protein NEGATIVE mg/dL (NEGATIVE) 01/05/19 17:08 Urine Glucose (UA) NEGATIVE mg/dL (NEGATIVE) 01/05/19 17:08 Urine Ketones TRACE mg/dL (NEGATIVE) 01/05/19 17:08 Urine Occult Blood TRACE-INTA (NEGATIVE) 01/05/19 17:08 Urine Nitrite POSITIVE (NEGATIVE) H 01/05/19 17:08 Urine Bilirubin NEGATIVE (NEGATIVE) 01/05/19 17:08 Urine Urobilinogen 0.2 (NORMAL) E.U./dL (NORMAL) 01/05/19 17:08 Ur Leukocyte Esterase NEGATIVE (NEGATIVE) 01/05/19 17:08 Urine RBC 6-10 /HPF (0-5) H 01/05/19 17:08 Urine WBC 11-25 /HPF (0-5) H 01/05/19 17:08 Urine WBC Clumps PRESENT 01/05/19 17:08 Ur Squamous Epith Cells RARE Squamous (<= Few) 01/05/19 17:08 Urine Bacteria Many /HPF (None Seen) H 01/05/19 17:08 Ur Microscopic Review INDICATED 01/05/19 17:08 Urine Culture Comments INDICATED 01/05/19 17:08 Last Dose Date UNKNOWN 01/05/19 16:40 Last Dose Time UNKNOWN 01/05/19 16:40 Carbamazepine 4.7 ug/mL 01/05/19 16:40 - Procedures Procedures: Procedures CATARAC PHACOEMULS/ASPIR (02/17/14) CLOSED ENDOSCOPIC BIOPSY OF LARGE INTESTINE (10/10/14) ESOPHAGOGASTRODUODENOSCOPY [EGD] W/CLOSED BIOPSY (10/10/14) INSERT LENS AT CATAR EXT (02/17/14)
--- NOTE | 2019-01-06 19:10 | ADVANCE CARE PLANNING NOTE ---
Advance Care Planning - Planning Encounter Date: 01/06/19 Time: 14:00 Purpose: To establish CODE status. Parties in Attendance: I spoke to the daughter at the patient's bedside, the patient listened but said nothing. Decisional Capacity of the Patient: She has dementia and the daughter is the DPOA. - Diagnosis for Encounter (1) Encephalopathy Summary: The patient's confusion is greater than her baseline and her personality is unlike previous UTIs. (2) History of CVA (cerebrovascular accident) Summary: Dementia onset followed a stroke. - Encounter Subjective/Patient's Story: She had a stroke leading to poor memory and has been at Assisted Living Facility for about 2 t=years. Past UTIs made the patient become "angry", this tome she is pleasant but withdrawn and quieter. Objective/Medical Story: She presened with 3 days of behavior changes and the staff at [facility] advised her daughter to bring her to the ER, where she was found to be confused, dehydrated and with a UTI. IV hydration and empiric antibiotics were started. Goals of Care: Return to prior level of function. No aggressive measures are requested. The family had decided not to pursue treatment of a lung cancer. Plan: A new POLST form will be filled out, with DNR/DNI status. Code Status: Do Not Attempt Resuscitation Time spent on advance care plannin min
[2019-01-06] MEDS: IPRATROPIUM/ALBUTEROL 3 ML NEB INH SCH (19:19)
[2019-01-06] MEDS: FORMOTEROL FUMARATE NEB 20 MCG/2 ML INH SCH (19:19)
[2019-01-06] MEDS: BUDESONIDE 0.5 MG/2 ML NEB INH SCH (19:19)
[2019-01-06] MEDS ORDERED: ATORVASTATIN 40 MG TABLET PO SCH (21:00)
[2019-01-06] MEDS ORDERED: LATANOPROST 0.005% OPHTH DROPS EACHEYE SCH (21:00)
[2019-01-07] MEDS: SODIUM CHLORIDE FLUSH 0.9% 10 ML SYRINGE IVP SCH ×3 (03:20→16:00)
[2019-01-07] MEDS: carBAMazepine 200 MG TABLET PO SCH ×2 (05:00→14:42)
[2019-01-07 05:08] LABS: BASOPHILS % (AUTO) 0.7 %; EOSINOPHILS # (AUTO) 0.2 10^3/uL (0.0-0.7); EOSINOPHILS % (AUTO) 2.9 %; HGB - HEMOGLOBIN 10.3 g/dL (12.0-16.0); LYMPHOCYTES # (AUTO) 1.6 10^3/uL (1.5-3.5); LYMPHOCYTES % (AUTO) 28.5 %; MEAN CORPUSCULAR HEMOGLOBIN 27.2 pg (27.0-31.0); MEAN CORPUSCULAR HGB CONC 30.8 g/dL (32.0-36.0); MEAN CORPUSCULAR VOLUME 88.1 fL (81.0-99.0); MEAN PLATELET VOLUME 9.2 fL (7.9-10.8); MONOCYTES # (AUTO) 0.5 10^3/uL (0.0-1.0); NEUTROPHILS # (AUTO) 3.3 10^3/uL (1.5-6.6); NEUTROPHILS % (AUTO) 58.7 %; PLT - PLATELET COUNT 206 10^3/uL (130-450); RED BLOOD COUNT 3.79 10^6/uL (4.20-5.40); RED CELL DISTRIBUTION WIDTH 14.3 % (12.0-15.0); WHITE BLOOD COUNT 5.6 x10^3/uL (4.8-10.8)
[2019-01-07] MEDS: SODIUM CHLORIDE 0.9% 1,000 ML IV SCH (05:16)
[2019-01-07 05:23] LABS: CALCIUM 8.5 mg/dL (8.5-10.3); CREATININE 0.8 mg/dL (0.4-1.0); MAGNESIUM 1.9 mg/dL (1.7-2.8); PHOSPHORUS 3.4 mg/dL (2.5-4.6)
[2019-01-07] MEDS: BUDESONIDE 0.5 MG/2 ML NEB INH SCH (07:34)
[2019-01-07] MEDS: FORMOTEROL FUMARATE NEB 20 MCG/2 ML INH SCH (07:34)
[2019-01-07] MEDS: IPRATROPIUM/ALBUTEROL 3 ML NEB INH SCH ×2 (07:34→17:04)
[2019-01-07] MEDS ORDERED: levoFLOXacin 750 MG/150 ML 750 MG/150 ML BAG IV SCH (08:00)
[2019-01-07] MEDS ORDERED: ASPIRIN 325 MG TABLET PO SCH (08:00)
--- NOTE | 2019-01-07 08:22 | PROVIDER PROGRESS NOTE ---
Assessment/Plan - Problem List (3) History of CVA (cerebrovascular accident) Assessment/Plan: Chronic - Current Meds Current Meds: Current Medications Generic Name Dose Route Start Last Admin Trade Name Shalom PRN Reason Stop Dose Admin Albuterol/Ipratropium 3 ml 01/06/19 22:00 01/07/19 07:34 Duoneb INH 3 ml TID BRIGID Administration Atorvastatin Calcium 40 mg 01/06/19 21:00 01/06/19 20:24 Lipitor PO 40 mg QPM BRIGID Administration Budesonide 0.5 mg 01/06/19 19:00 01/07/19 07:34 Pulmicort INH 0.5 mg RTBID BRIGID Administration Bupropion HCl 150 mg 01/06/19 09:00 01/06/19 20:25 Wellbutrin Sr PO 150 mg BID BRIGID Administration Carbamazepine 200 mg 01/06/19 22:00 01/07/19 05:00 Tegretol PO 200 mg TID BRIGID Administration Formoterol Fumarate 20 mcg 01/06/19 19:00 01/07/19 07:34 Perforomist INH 20 mcg RTBID BRIGID Administration Heparin Sodium (Porcine) 5,000 unit 01/05/19 21:00 01/06/19 20:22 SUBQ 5,000 unit BID BRIGID Administration Sodium Chloride 1,000 mls @ 100 mls/hr 01/05/19 21:00 01/07/19 05:16 Normal Saline 0.9% IV 100 mls/hr .Q10H BRIGID Administration Latanoprost 1 drops 01/06/19 21:00 01/06/19 20:25 Xalatan Ophth Drops EACHEYE 1 drops QPM BRIGID Administration Polyethylene Glycol 17 gm 01/06/19 09:00 01/06/19 08:25 Miralax PO 17 gm DAILY BRIGID Administration Sodium Chloride 10 ml 01/06/19 01:00 01/07/19 03:20 Normal Saline Flush 0.9% IVP 10 ml 0100,0900,1700 BRIGID Administration Timolol Maleate 1 drops 01/06/19 09:00 01/06/19 20:26 Timoptic 0.5% Ophth Drops RIGHTEYE 1 drops BID BRIGID Administration - Lab Result Fish Bone Diagrams: 01/07/19 05:00 01/07/19 05:00 - Additional Planning My Orders: My Active Orders 01/06/19 13:53 Ibuprofen [Motrin] 600 mg PO Q6HR PRN Ipratropium/Albuterol [Duoneb] 3 ml INH QID PRN 01/06/19 13:55 Albuterol 2.5 mg INH RTQ4H PRN 01/06/19 19:00 Budesonide [Pulmicort] 0.5 mg INH RTBID Formoterol Fumarate [Perforomist] 20 mcg INH RTBID 01/06/19 22:00 Ipratropium/Albuterol [Duoneb] 3 ml INH TID carBAMazepine [TEGretol] 200 mg PO TID 01/07/19 Evaluate and Treat OT [OT] Routine Evaluate and Treat PT [PT] Routine 01/07/19 08:00 Aspirin [Alireza] 325 mg PO DAILYWM levoFLOXacin 750 MG/150 ML [Levaquin 750 mg/150 ml] 750 mg in 150 ml IV Q24H 01/07/19 09:00 Clopidogrel [Plavix] 75 mg PO DAILY Subjective - Subjective Patient Reports: No Complaints Objective Vital Signs: Vital Signs - 24 hr 01/06/19 01/06/19 01/06/19 09:27 11:49 12:01 Temperature 36.7 C 36.2 C L Heart Rate 58 L 60 Heart Rate [ 60 Brachial] Respiratory 17 18 20 Rate Blood Pressure 99/62 [Right Brachial artery] O2 Saturation 96 96 01/06/19 01/06/19 01/06/19 15:58 19:20 20:11 Temperature 36.8 C 36.6 C Heart Rate 60 Heart Rate [ 62 64 Brachial] Respiratory 24 18 20 Rate Blood Pressure 106/61 101/63 [Right Brachial artery] O2 Saturation 97 96 01/06/19 01/07/19 01/07/19 23:50 03:05 07:39 Temperature 36.8 C 36.9 C Heart Rate 64 Heart Rate [ 61 60 Brachial] Respiratory 16 16 16 Rate Blood Pressure 121/65 136/66 H [Right Brachial artery] O2 Saturation 96 96 Oxygen O2 Source Room air I&O (Last 24 Hrs): Intake and Output Totals x24h 01/05/19 01/06/19 01/07/19 23:59 23:59 23:59 Intake Total 1175 8953.333 1046.667 Balance 1175 2433.333 1046.667 - Results Results: Laboratory Results WBC 5.6 x10^3/uL (4.8-10.8) 01/07/19 05:00 RBC 3.79 10^6/uL (4.20-5.40) L 01/07/19 05:00 Hgb 10.3 g/dL (12.0-16.0) L 01/07/19 05:00 Hct 33.4 % (37.0-47.0) L 01/07/19 05:00 MCV 88.1 fL (81.0-99.0) 01/07/19 05:00 MCH 27.2 pg (27.0-31.0) 01/07/19 05:00 MCHC 30.8 g/dL (32.0-36.0) L 01/07/19 05:00 RDW 14.3 % (12.0-15.0) 01/07/19 05:00 Plt Count 206 10^3/uL (130-450) 01/07/19 05:00 MPV 9.2 fL (7.9-10.8) 01/07/19 05:00 Neut # (Auto) 3.3 10^3/uL (1.5-6.6) 01/07/19 05:00 Lymph # (Auto) 1.6 10^3/uL (1.5-3.5) 01/07/19 05:00 [place] # (Auto) 0.5 10^3/uL (0.0-1.0) 01/07/19 05:00 Eos # (Auto) 0.2 10^3/uL (0.0-0.7) 01/07/19 05:00 Baso # (Auto) 0.0 10^3/uL (0.0-0.1) 01/07/19 05:00 Absolute Nucleated RBC 0.00 x10^3/uL 01/07/19 05:00 Nucleated RBC % 0.0 /100WBC 01/07/19 05:00 Sodium 140 mmol/L (135-145) 01/07/19 05:00 Potassium 4.1 mmol/L (3.5-5.0) 01/07/19 05:00 Chloride 108 mmol/L (101-111) 01/07/19 05:00 Carbon Dioxide 26 mmol/L (21-32) 01/07/19 05:00 Anion Gap 6.0 (6-13) 01/07/19 05:00 BUN 11 mg/dL (6-20) 01/07/19 05:00 Creatinine 0.8 mg/dL (0.4-1.0) 01/07/19 05:00 Estimated GFR (MDRD) 70 (>89) L 01/07/19 05:00 Glucose 93 mg/dL (70-100) 01/07/19 05:00 Lactic Acid 1.0 mmol/L (0.5-2.2) 01/05/19 09:37 Calcium 8.5 mg/dL (8.5-10.3) 01/07/19 05:00 Phosphorus 3.4 mg/dL (2.5-4.6) 01/07/19 05:00 Magnesium 1.9 mg/dL (1.7-2.8) 01/07/19 05:00 Total Bilirubin 0.3 mg/dL (0.2-1.0) 01/05/19 16:40 AST 24 IU/L (10-42) 01/05/19 16:40 ALT 17 IU/L (10-60) 01/05/19 16:40 Alkaline Phosphatase 110 IU/L (42-121) 01/05/19 16:40 Total Protein 8.1 g/dL (6.7-8.2) 01/05/19 16:40 Albumin 4.0 g/dL (3.2-5.5) 01/05/19 16:40 Globulin 4.1 g/dL (2.1-4.2) 01/05/19 16:40 Albumin/Globulin Ratio 1.0 (1.0-2.2) 01/05/19 16:40 Lipase 29 U/L (22-51) 01/05/19 16:40 Urine Color YELLOW 01/05/19 17:08 Urine Clarity CLEAR (CLEAR) 01/05/19 17:08 Urine pH 6.0 PH (5.0-7.5) 01/05/19 17:08 Ur Specific [place] 1.015 (1.002-1.030) 01/05/19 17:08 Urine Protein NEGATIVE mg/dL (NEGATIVE) 01/05/19 17:08 Urine Glucose (UA) NEGATIVE mg/dL (NEGATIVE) 01/05/19 17:08 Urine Ketones TRACE mg/dL (NEGATIVE) 01/05/19 17:08 Urine Occult Blood TRACE-INTA (NEGATIVE) 01/05/19 17:08 Urine Nitrite POSITIVE (NEGATIVE) H 01/05/19 17:08 Urine Bilirubin NEGATIVE (NEGATIVE) 01/05/19 17:08 Urine Urobilinogen 0.2 (NORMAL) E.U./dL (NORMAL) 01/05/19 17:08 Ur Leukocyte Esterase NEGATIVE (NEGATIVE) 01/05/19 17:08 Urine RBC 6-10 /HPF (0-5) H 01/05/19 17:08 Urine WBC 11-25 /HPF (0-5) H 01/05/19 17:08 Urine WBC Clumps PRESENT 01/05/19 17:08 Ur Squamous Epith Cells RARE Squamous (<= Few) 01/05/19 17:08 Urine Bacteria Many /HPF (None Seen) H 01/05/19 17:08 Ur Microscopic Review INDICATED 01/05/19 17:08 Urine Culture Comments INDICATED 01/05/19 17:08 Last Dose Date UNKNOWN 01/05/19 16:40 Last Dose Time UNKNOWN 01/05/19 16:40 Carbamazepine 4.7 ug/mL 01/05/19 16:40 - Procedures Procedures: Procedures CATARAC PHACOEMULS/ASPIR (02/17/14) CLOSED ENDOSCOPIC BIOPSY OF LARGE INTESTINE (10/10/14) ESOPHAGOGASTRODUODENOSCOPY [EGD] W/CLOSED BIOPSY (10/10/14) INSERT LENS AT CATAR EXT (02/17/14)
[2019-01-07] MEDS: buPROPion SR 150 MG TABLET PO SCH (08:30)
[2019-01-07] MEDS: POLYETHYLENE GLYCOL 3350 17 GM PACKET PO SCH (08:30)
[2019-01-07] MEDS: HEPARIN 5,000 UNIT/ML VIAL SUBQ SCH (08:45)
[2019-01-07] MEDS: TIMOLOL 0.5% OPHTH DROPS RIGHTEYE SCH (08:49)
[2019-01-07] MEDS ORDERED: CLOPIDOGREL 75 MG TABLET PO SCH (09:00)
--- NOTE | 2019-01-07 15:55 | Discharge Plan ---
Discharge Plan Problem Reviewed?: Yes Disposition: Home, Self Care Condition: Stable Diet: Regular Activity Restrictions: Activity as Tolerated Shower Restrictions: No Driving Restrictions: Yes Assistance Devices: Walker, Cane Weight Bearing: Full Weight Health Concerns: Patient admitted with altered mental status, on top of pre-existing dementia. No stroke was found. A Pseudomonas bacterial UTI and dehydration were responsible. Plan of Treatment: Finish a course of antibiotics. Resume other medications. Care Goals: Return to previous status of health and return to Assisted Living. Assessment: Discussed with Dr Maverick Lee. Additional Instructions or Follow Up instructions: See PCP in office follow-up on Fri01/11/19. No Smoking: If you smoke, Please STOP! Call for help. Follow-up with: Maverick Lee DO [Provider Admit Priv/Credential] -
--- NOTE | 2019-01-07 16:03 | Discharge Plan ---
Discharge Plan Problem Reviewed?: Yes Disposition: [facility] DC/Xfer Condition: Stable Prescriptions: Levofloxacin [Levaquin] 750 mg PO DAILY #9 tablet Activity Restrictions: Activity as Tolerated Shower Restrictions: No Driving Restrictions: Yes Weight Bearing: Full Weight Health Concerns: Patient admitted with altered mental status, on top of pre-existing dementia. No stroke was found. A Pseudomonas bacterial UTI and dehydration were responsible. Plan of Treatment: Finish a course of antibiotics. Resume other medications. Care Goals: Return to previous status of health and return to Assisted Living. Assessment: Discussed with Dr Maverick Lee. Additional Instructions or Follow Up instructions: See PCP in office follow-up on 01/11/19. No Smoking: If you smoke, Please STOP! Call for help. Follow-up with: Maverick Lee DO [Provider Admit Priv/Credential] -
--- NOTE | 2019-01-07 16:14 | DISCHARGE SUMMARY ---
Discharge Summary Admit Date: 01/05/19 Discharge Date: 01/07/19 Discharging Provider: Dr Lela Guerrero Primary Care Provider: Dr Maverick Lee Code Status: Do Not Attempt Resuscitation Condition at Discharge: Stable Discharge Disposition: SNF DC/Xfer Discharge Facility Name: [facility] - DIAGNOSES Admission Diagnoses: 1) Altered mental status 2) UTI 3) Dementia 4) Hx COPD 5) Glaucoma Discharge Diagnoses with Status of Each Condition: See below - HPI History of Present Illness: From the admission H&P of Dr Ramez Kaufman: This is a 73 year old female with a past medical history significant for sick sinus syndrome s/p pacemaker, COPD, CVA w/o residual deficits, dementia, recurrent UTI on chronic suppressive therapy, and lung cancer who presented from [facility] due to change in her mental status. History is primarily obtained from the patient's daughter as the patient is not a reliable historian. The patient's daughter states that at baseline, the patient knows the month, year, and is able to converse and recognize family members. The daughter first noticed something was different about the patient when she went to her ophthalmology appointment this past friday for her glaucoma. The patient had difficulty walking shortly after and walked into a sign. The program professional told the daughter that none of the drops she receiving during the appoint could cause those symptoms and recommended ER evaluation if there was significant concern. The patient was slightly improved so daughter took her back to assisted living. Normally, the patient leaves her room to have her meals but this past , she stayed in her room and the staff members brought the meals to her. The patient's daughter received a phone call today from a nurse that the patient did not appear her usual self and therefore she was brought to the ER for fur ther evaluation. The patient currently has no complaints. She believes she has been at the hospital for almost a week and is about to be discharged. She does not know the year or month. Her daughter reports that although she has dementia at baseline, this is definitely not her baseline. She does have a history of recurrent UTI's with the last one being a few months ago and did not require hospitalization. She is currently on chronic suppressive therapy with Keflex but was previously on Macrobid. The daughter reports that the patient usually becomes aggressive when she has UTI's and that her current presentation is not similar to prior episodes. In the ER, she was afebrile and vitals were unremarkable. Labs were significant for a sodium of 131. Urinalysis revealed pyuria, bacteria, and nitrites. She has no leukocytosis. CT of the head showed an old infarct. There was concern for a possible metastatic lesion given her history of lung cancer and because she can not get an MRI due to her pacemaker, a repeat CT of the head with contrast was completed which confirmed that the suspicious area on initial CT was not a metastatic lesion. She will be admitted for further management. - HOSPITAL COURSE Hospital Course: (1) Pseudomonas UTI The urine cultures grew Pseudomonas on the 2nd day. It was not sensitive to Ceftriaxone. that she had been empirically started on. The treatment was changed to iv Levofloxacin, and planned 2 days of iv Levoflox then change to oral, however I discussed the plan with her PCP, and Dr Maverick Lee advised Levofloxavin be started orally now, since the bioavailability is similar po and iv, and that she would see the patient in the office in 4 days. Levofloxacin 750 mg po daily for 9 days (a 10 day total course) was ordered. (2) Encephalopathy On her first full hospital day, the daughter and I were in the patient's room and the daughter witnessed her answers and speech and reported that the patient is still not at her baseline. The patient did not know her , location, but was oriented to person. In addition, with her previous multiple UTIs, the patient was "angry" and this time she is more withdrawn, less communicative and was pleasant. This made the daughter suspect that another diagnosis was currently causing the change in mental status. By the second dfay, after IV hydration, she was oriented x3 and had the strength to ambulate with PT. (3) Dementia Chronic. But she is very functional, lives at Assisted Living. (4) Lung cancer The daughter reports that the family has chosen not to pursue further work-up or start chemo have surgery. This Hospitalist had an Advanced Care Plan meeting with the daughter, a new POLST was completed, with request to have the patient be DNR/DNI. (5) Bipolar disorder Continued pre-hospital meds. (6) COPD (chronic obstructive pulmonary disease) Continued her multiple nebs while here. No signs of COPD exacerbation currently. (7) History of CVA (cerebrovascular accident) Chronic. (8) Cardiac pacemaker Stable. (9) Hypertension Continued pre-hospital BP meds. (10) Glaucoma Plan to continue her eye drops. - ALLERGIES Allergies/Adverse Reactions: Allergies Allergy/AdvReac Type Severity Reaction Status Date / Time Sulfa (Sulfonamide AdvReac Rash Verified 01/19/17 12:12 Antibiotics) - MEDICATIONS Home Medications: Ambulatory Orders Medication Instructions Recorded Confirmed Zolpidem [Ambien] 10 mg ORAL QPM PRN 02/16/14 01/06/19 Timolol 0.5% Ophth Drops [Timoptic 1 drops RIGHTEYE BID 08/15/17 01/06/19 0.5% Ophth Drops] Albuterol Sulfate [Proair Hfa 2 puffs INH Q4H PRN 10/12/17 01/06/19 Inhaler] Bupropion HCl [Bupropion HCl Sr] 150 mg PO Q12H 10/12/17 01/06/19 Carbamazepine 200 mg PO TID 10/12/17 01/06/19 Ipratropium/Albuterol [Duoneb] 3 ml INH TID 10/12/17 01/06/19 Multivitamin [Theragran] 1 tab PO DAILY 10/12/17 01/06/19 Oxybutynin Chloride [Ditropan Xl] 10 mg PO QPM 10/12/17 01/06/19 Aspirin [Alireza] 325 mg PO DAILYWM #30 tablet 10/15/17 01/06/19 Ibuprofen [Motrin] 600 mg PO Q6HR PRN #90 tablet 10/15/17 01/06/19 Lisinopril 10 mg PO DAILY #30 tablet 10/15/17 01/06/19 Polyethylene Glycol 3350 [Miralax] 17 gm PO DAILY #30 packet 10/15/17 01/06/19 Spironolactone [Aldactone] 12.5 mg PO DAILY #15 tablet 10/15/17 01/06/19 Clopidogrel Bisulfate [Clopidogrel] 75 mg ORAL DAILY 01/28/18 01/06/19 Docusate Sodium [Colace Clear] 100 mg ORAL DAILY PRN 01/28/18 01/06/19 Latanoprost [Xalatan] 1 drops EACHEYE QPM 01/28/18 01/06/19 Mometasone/Formoterol [Dulera 100 2 inh INH BID 01/28/18 01/06/19 Mcg/5 Mcg Inhaler] Atorvastatin Calcium 40 mg PO QPM 01/05/19 01/06/19 Metoprolol Succinate 50 mg PO BID 01/05/19 01/06/19 Saccharomyces Boulardii [Florastor] 250 mg PO DAILY 01/06/19 01/06/19 raNITIdine [Zantac] 150 mg PO DAILY PRN 01/06/19 01/06/19 Levofloxacin [Levaquin] 750 mg PO DAILY #9 tablet 01/07/19 - PHYSICAL EXAM AT DISCHARGE General Appearance: positive: No acute distress, Alert Eyes Bilateral: positive: Normal inspection, No lid inflammation ENT: positive: ENT inspection nml, Other (<oist mucosa) Neck: positive: Nml inspection, Thyroid nml, No JVD Respiratory: positive: No respiratory distress, Breath sounds nml Cardiovascular: positive: Regular rate & rhythm, No murmur Abdomen: positive: Non-tender, Nml bowel sounds Skin: positive: Color nml Extremities: positive: No pedal edema Neurologic/Psychiatric: positive: Other (Non-focal) - LABS Result Diagrams: 01/07/19 05:00 01/07/19 05:00 - FOLLOW UP Follow Up: See PCP on 01/11/19.
[2019-01-07 19:14] VITALS: BP 130/95
== END 2019-01-07 19:25 ==
LOC: EDUNIT# → ED 16:22 → UNDOADMOB 20:28 → INTOOBSV 20:28 → MS2 20:28
PROVIDERS: ADMIT Internal Medicine; ATTEND Internal Medicine
DX: N39.0 Urinary tract infection, site not specified (principal); B96.5 Pseudomonas (aeruginosa) (mallei) (pseudomallei) as the cause of diseases classified elsewhere; G93.40 Encephalopathy, unspecified; E86.0 Dehydration; F03.90 Unspecified dementia, unspecified severity, without behavioral disturbance, psychotic disturbance, mood disturbance, and anxiety; C34.90 Malignant neoplasm of unspecified part of unspecified bronchus or lung; E87.1 Hypo-osmolality and hyponatremia; F31.9 Bipolar disorder, unspecified; J44.9 Chronic obstructive pulmonary disease, unspecified; I10 Essential (primary) hypertension; H40.9 Unspecified glaucoma; Z66 Do not resuscitate; Z86.73 Personal history of transient ischemic attack (TIA), and cerebral infarction without residual deficits; Z87.440 Personal history of urinary (tract) infections; Z95.0 Presence of cardiac pacemaker; K21.9 Gastro-esophageal reflux disease without esophagitis; E78.00 Pure hypercholesterolemia, unspecified; K55.9 Vascular disorder of intestine, unspecified; R32 Unspecified urinary incontinence; R35.1 Nocturia; R35.0 Frequency of micturition; H54.7 Unspecified visual loss; J32.9 Chronic sinusitis, unspecified; Z87.891 Personal history of nicotine dependence; Z79.51 Long term (current) use of inhaled steroids; Z79.82 Long term (current) use of aspirin; Z79.1 Long term (current) use of non-steroidal anti-inflammatories (NSAID)
CPT/HCPCS: 36415; 70450; 70460; 71046; 80048; 80053; 80156; 81001; 83605; 83690; 83735; 84100; 85025; 87077; 87086; 87181; 94640; 96361; 96365; 96366; 96367; 96372; 97161; 99285; A9270; G0378; J7626; Q9967; 81003

== ENCOUNTER 2019-01-27 14:15 | Outpatient (CLI) | payer MEDICARE, MEDICAID | END 2019-01-27 23:59 | disposition home or self-care (01) | LOC: LAB.R 14:15 | PROVIDERS: ATTEND Family Medicine | DX: N39.0 Urinary tract infection, site not specified (principal) | CPT/HCPCS: 87086; 87181 ==

== ENCOUNTER 2019-04-07 12:40 | Outpatient (CLI) | payer MEDICARE, MEDICAID | END 2019-04-07 12:41 | disposition home or self-care (01) | LOC: LAB.R 12:40 | PROVIDERS: ATTEND Family Medicine | DX: N39.0 Urinary tract infection, site not specified (principal) | CPT/HCPCS: 87086 ==

== ENCOUNTER 2019-11-15 04:22 | Outpatient (CLI) | payer MEDICARE, MEDICAID | END 2019-11-15 04:23 | disposition critical access hospital (66) | LOC: EMS 04:22 | PROVIDERS: ATTEND Surgery | DX: R06.00 Dyspnea, unspecified (principal) | CPT/HCPCS: A0425; A0427 ==

== ENCOUNTER 2020-02-16 18:54 | Outpatient (CLI) | payer MEDICARE, MEDICAID | END 2020-02-16 18:55 | disposition critical access hospital (66) | LOC: EMS 18:54 | PROVIDERS: ATTEND Surgery | DX: R06.00 Dyspnea, unspecified (principal) | CPT/HCPCS: A0425; A0429 ==

== ENCOUNTER 2020-02-16 19:12 | Emergency (ER) | payer MEDICARE, MEDICAID ==
--- NOTE | 2020-02-16 19:31 | ED Physician Documentation ---
PD HPI DYSPNEA - Stated complaint Stated Complaint: RESP DIS - Chief complaint Chief Complaint: Resp - History obtained from History obtained from: Patient, EMS - History of Present Illness Timing - onset: Today Timing - onset during: Rest Pain level max: 0 Pain level now: 0 Improved by: Other (no ameliorating factors) Worsened by: Other (no exacerbating factors) Associated symptoms: Cough (mild). No: Fever, Wheezing, Chest pain / discomfort, Palpitations, Bilateral edema, Unilateral edema Recently seen: Not recently seen Review of Systems Constitutional: reports: Reviewed and negative Cardiac: reports: Reviewed and negative Respiratory: reports: Dyspnea, Cough PD PAST MEDICAL HISTORY - Past Medical History Cardiovascular: Hypertension, High cholesterol, Other Respiratory: COPD Neuro: CVA Endocrine/Autoimmune: None GI: GERD, Other (Ischemic enteritis) BUILD MASTER: Other (hysterectomy) : Incontinence, Nocturia, Frequency HEENT: Chronic vision loss, Glaucoma, Chronic sinusitis Psych: Depression, Bipolar disorder Musculoskeletal: Fatigue Derm: None - Past Surgical History Past Surgical History: Yes General: Appendectomy, Colonoscopy /BUILD MASTER: section, Hysterectomy Cardiovascular: Pacemaker HEENT: Cataracts Derm: Skin grafts - Present Medications Home Medications: Ambulatory Orders Medication Instructions Recorded Confirmed Zolpidem [Ambien] 10 mg ORAL QPM PRN 02/16/14 01/06/19 Timolol 0.5% Ophth Drops [Timoptic 1 drops RIGHTEYE BID 08/15/17 01/06/19 0.5% Ophth Drops] Albuterol Sulfate [Proair Hfa 2 puffs INH Q4H PRN 10/12/17 01/06/19 Inhaler] Carbamazepine 200 mg PO TID 10/12/17 01/06/19 Ipratropium/Albuterol [Duoneb] 3 ml INH TID 10/12/17 01/06/19 Multivitamin [Theragran] 1 tab PO DAILY 10/12/17 01/06/19 Oxybutynin Chloride [Ditropan Xl] 10 mg PO QPM 10/12/17 01/06/19 buPROPion HCL [Bupropion HCl Sr] 150 mg PO Q12H 10/12/17 01/06/19 Aspirin [Alireza] 325 mg PO DAILYWM #30 tablet 10/15/17 01/06/19 Ibuprofen [Motrin] 600 mg PO Q6HR PRN #90 tablet 10/15/17 01/06/19 Spironolactone [Aldactone] 12.5 mg PO DAILY #15 tablet 10/15/17 01/06/19 lisinopriL [Lisinopril] 10 mg PO DAILY #30 tablet 10/15/17 01/06/19 polyethylene glycoL 3350 [Miralax] 17 gm PO DAILY #30 packet 10/15/17 01/06/19 Clopidogrel Bisulfate [Clopidogrel] 75 mg ORAL DAILY 01/28/18 01/06/19 Docusate Sodium [Colace Clear] 100 mg ORAL DAILY PRN 01/28/18 01/06/19 Latanoprost [Xalatan] 1 drops EACHEYE QPM 01/28/18 01/06/19 Mometasone/Formoterol [Dulera 100 2 inh INH BID 01/28/18 01/06/19 Mcg-5 Mcg Inhaler] Atorvastatin Calcium 40 mg PO QPM 01/05/19 01/06/19 Metoprolol Succinate 50 mg PO BID 01/05/19 01/06/19 Saccharomyces Boulardii [Florastor] 250 mg PO DAILY 01/06/19 01/06/19 raNITIdine [Zantac] 150 mg PO DAILY PRN 01/06/19 01/06/19 levoFLOXacin [Levaquin] 750 mg PO DAILY #9 tablet 01/07/19 levoFLOXacin [Levaquin] 750 mg PO DAILY #5 tablet 11/15/19 predniSONE [Prednisone] 50 mg PO DAILY #5 tablet 11/15/19 Levofloxacin [Levaquin] 500 mg PO DAILY #7 tablet 02/17/20 predniSONE [Prednisone] 20 mg PO BID 3 Days #6 tablet 02/17/20 - Allergies Allergies/Adverse Reactions: Allergies Allergy/AdvReac Type Severity Reaction Status Date / Time Sulfa (Sulfonamide AdvReac Rash Verified 01/19/17 12:12 Antibiotics) - Social History Does the pt smoke?: No Smoking Status: Current every day smoker Does the pt drink ETOH?: No Does the pt have substance abuse?: No - Immunizations Immunizations are current?: Yes - POLST Patient has POLST: Yes POLST Status: Full Code PD ED PE NORMAL - Vitals Vital signs reviewed: Yes - General General: Alert and oriented X 3, No acute distress, Well developed/nourished - HEENT HEENT: Moist mucous membranes - Neck Neck: Supple, no meningeal sign - Cardiac Cardiac: RRR, No murmur - Respiratory Respiratory: No respiratory distress, Clear bilaterally - Abdomen Abdomen: Soft, Non tender - Derm Derm: Normal color, Warm and dry - Extremities Extremities: No edema Results - Vitals Vitals: Vital Signs - 24 hr 02/16/20 02/17/20 23:45 00:15 Temperature 36.6 C Heart Rate 60 60 Respiratory 18 17 Rate Blood Pressure 184/102 H 162/89 H O2 Saturation 100 99 Oxygen O2 Source Room air - Labs Labs: Laboratory Tests 02/16/20 02/16/20 02/16/20 11:50 19:45 19:45 WBC 5.8 RBC 4.32 Hgb 11.9 L Hct 37.5 MCV 86.8 MCH 27.5 MCHC 31.7 L RDW 13.8 Plt Count 273 MPV 9.2 Neut # (Auto) 3.7 Lymph # (Auto) 1.2 L [place] # (Auto) 0.6 Eos # (Auto) 0.1 Baso # (Auto) 0.0 Absolute Nucleated RBC 0.00 Nucleated RBC % 0.0 Sodium 131 L Potassium 5.0 Chloride 95 L Carbon Dioxide 28 Anion Gap 8.0 BUN 22 H Creatinine 1.2 H Estimated GFR (MDRD) 44 L Glucose 114 H Calcium 9.2 Urine Color YELLOW Urine Clarity HAZY Urine pH 6.0 Ur Specific [place] 1.015 Urine Protein NEGATIVE Urine Glucose (UA) NEGATIVE Urine Ketones NEGATIVE Urine Occult Blood TRACE-INTA Urine Nitrite POSITIVE H Urine Bilirubin NEGATIVE Urine Urobilinogen 0.2 (NORMAL) Ur Leukocyte Esterase LARGE H Urine RBC 0-5 Urine WBC 11-25 H Ur Squamous Epith Cells FEW Squamous Urine Bacteria Many H Ur Microscopic Review INDICATED Urine Culture Comments INDICATED - Rads (name of study) cxr Radiology: Prelim report reviewed, See rad report PD MEDICAL DECISION MAKING - ED course Complexity details: reviewed results, re-evaluated patient, considered differential, d/w patient Departure - Departure Disposition: 01 Home, Self Care Clinical Impression: Dyspnea, UTI (urinary tract infection) Condition: Stable Instructions: ED Dyspnea Shortness of Breath, ED UTI Cystitis Female Follow-Up: Maverick Lee DO [Primary Care Provider] - Prescriptions: Levofloxacin [Levaquin] 500 mg PO DAILY #7 tablet predniSONE [Prednisone] 20 mg PO BID 3 Days #6 tablet Discharge Date/Time: 02/17/20 01:12
[2020-02-16] MEDS ORDERED: ALBUTEROL 1 PUFF INH STA (19:45)
[2020-02-16 19:52] LABS: BASOPHILS % (AUTO) 0.5 %; EOSINOPHILS # (AUTO) 0.1 10^3/uL (0.0-0.7); EOSINOPHILS % (AUTO) 1.9 %; HGB - HEMOGLOBIN 11.9 g/dL (12.0-16.0); LYMPHOCYTES # (AUTO) 1.2 10^3/uL (1.5-3.5); LYMPHOCYTES % (AUTO) 21.4 %; MEAN CORPUSCULAR HEMOGLOBIN 27.5 pg (27.0-31.0); MEAN CORPUSCULAR HGB CONC 31.7 g/dL (32.0-36.0); MEAN CORPUSCULAR VOLUME 86.8 fL (81.0-99.0); MEAN PLATELET VOLUME 9.2 fL (7.9-10.8); MONOCYTES # (AUTO) 0.6 10^3/uL (0.0-1.0); MONOCYTES % (AUTO) 10.6 %; NEUTROPHILS # (AUTO) 3.7 10^3/uL (1.5-6.6); NEUTROPHILS % (AUTO) 65.1 %; PLT - PLATELET COUNT 273 10^3/uL (130-450); RED BLOOD COUNT 4.32 10^6/uL (4.20-5.40); RED CELL DISTRIBUTION WIDTH 13.8 % (12.0-15.0); WHITE BLOOD COUNT 5.8 x10^3/uL (4.8-10.8)
[2020-02-16 20:04] LABS: CALCIUM 9.2 mg/dL (8.5-10.3); CREATININE 1.2 mg/dL (0.4-1.0)
--- NOTE | 2020-02-16 20:37 | XRAY Report ---
PROCEDURE: Chest 2 View X-Ray INDICATIONS: dyspnea TECHNIQUE: 2 view(s) of the chest. COMPARISON: Chest x-ray 11/15/2019, 01/05/2019. Chest CT 10/30/2017. FINDINGS: Surgical changes and devices: Left chest wall dual-lead pacemaker redemonstrated. Lungs and pleura: There are increased right suprahilar medial opacities. There is hyperinflation of the lungs with flattening of the hemidiaphragms compatible with COPD. No pleural effusions or pneumot horax. Mediastinum: There is increased right paratracheal soft tissue thickening. Heart size is normal. Bones and chest wall: No suspicious bony abnormalities. Soft tissues appear unremarkable. IMPRESSION: 1. Increased medial right suprahilar opacities and right paratracheal soft tissue thickening in the s uperior mediastinum. The findings suggest a right hilar mass with post obstructive atelectasis or con solidation. Further evaluation may be obtained with CT. Reviewed by: Main Gongora MD on 02/16/2020 8:36 PM PDT Approved by: Main Gongora MD on 02/16/2020 8:36 PM PDT Station ID: [id number]
[2020-02-16] MEDS ORDERED: SODIUM CHLORIDE 0.9% 1,000 ML IV STA (22:33)
[2020-02-16 23:58] LABS: BILIRUBIN,URINE NEGATIVE (NEGATIVE); GLUCOSE, URINE (UA) NEGATIVE (NEGATIVE); KETONES,URINE (UA) NEGATIVE (NEGATIVE); LEUKOCYTE ESTERASE, URINE LARGE (NEGATIVE); NITRITE,URINE POSITIVE (NEGATIVE); OCCULT BLOOD,URINE TRACE-INTA (NEGATIVE); PROTEIN,URINE NEGATIVE (NEGATIVE); UROBILINOGEN,URINE 0.2 (NORMAL) E.U./dL (NORMAL)
[2020-02-16 23:59] LABS: CLARITY,URINE HAZY (CLEAR)
[2020-02-17 00:04] LABS: BACTERIA,URINE Many /HPF (None Seen); RBC,URINE 0-5 /HPF (0-5); SQUAMOUS EPITHELIAL CELL,UR FEW Squamous (<= Few)
[2020-02-17] MEDS ORDERED: CIPROFLOXACIN 250 MG TABLET PO STA (00:13)
[2020-02-17] MEDS ORDERED: DEXAMETHASONE 10 MG/ML VIAL IVP STA (00:33)
[2020-02-17 01:09] VITALS: BP 162/89
== END 2020-02-17 01:12 | disposition home or self-care (01) ==
LOC: EDUNIT# → ED 19:12
DX: R06.00 Dyspnea, unspecified (principal); N39.0 Urinary tract infection, site not specified; I10 Essential (primary) hypertension; J44.9 Chronic obstructive pulmonary disease, unspecified; F17.200 Nicotine dependence, unspecified, uncomplicated
CPT/HCPCS: 36415; 71046; 80048; 81001; 81599; 85025; 87086; 87181; 94640; 94664; 96361; 96374; 99284; A9270; 81003

== ENCOUNTER 2020-02-27 10:46 | Outpatient (CLI) | payer MEDICARE, MEDICAID ==
[2020-02-27] MEDS ORDERED: IOVERSOL 320 100 ML VIAL IVP ONE ×2 (11:27→13:09)
--- NOTE | 2020-02-27 13:47 | CT Report ---
PROCEDURE: CHEST W INDICATIONS: lung mass CONTRAST: IV CONTRAST: Optiray 320 ml: 80 PO CONTRAST: *NO PO CONTRAST TECHNIQUE: After the administration of intravenous contrast, 5 mm thick sections acquired from the pulmonary api darin to the posterior costophrenic angles. 7 mm thick coronal MIP reformats were acquired. For radia tion dose reduction, the following was used: automated exposure control, adjustment of mA and/or kV according to patient size. COMPARISON: None. FINDINGS: Image quality: Excellent. Lungs and pleura: The spiculated mass within the anterior right upper lobe is increased in size when compared with the prior CT dated 10/30/2017 and now measures 1.5 x 1.6 cm in axial diameter (previousl y measured 1.3 x 1.3 cm in the same plane. Scattered airspace opacities surrounding this nodule. Ther e is a marked increase in the size of the spiculated hilar mass when compared with the prior study wh ich now measures approximately 4.5 x 4.6 cm in the axial plane and previously measured approximately 2.0 x 1.4 cm in the same plane. This mass now in cases approximately two thirds of the trachea, encas es the right mainstem bronchus and abuts the left main stem bronchus. A probable satellite nodule is noted at the right apex which measures 4 mm in diameter (series 4/image 40). A 1.4 cm in diameter reg ion of groundglass radiopacities are present in the right middle lobe which is increased in size from the prior study where it measured 0.9 cm in diameter and may represent a small metastasis. The left lung is clear. No pleural effusion or pneumothorax. Probable atelectasis or scarring is present at th e lingular base, unchanged from 2018. Mediastinum: Heart size is normal. No pericardial effusion. There is a new enlarged subcarinal lymp h node which measures 1.3 cm in diameter. No hilar adenopathy. Thoracic aorta and central pulmonary a rteries are normal in size. There is no central opacification of the right brachiocephalic vein raisi ng the suspicion for the intraluminal thrombus or tumor thrombus. Atheromatous calcifications are pre sent at the thoracic aortic arch and within the coronary arteries. Esophagus is normal in caliber. N o hiatal hernia. Bones and chest wall: No suspicious bony lesions. No vertebral body compression fractures. No axil rosalinda or supraclavicular adenopathy by size criteria. Thyroid gland is unremarkable. Abdomen: Ill-defined subcentimeter low-density lesions are noted within the adrenal glands which may represent bilateral adrenal adenomas and are unchanged from the prior study from 2018. Visualized up per abdominal solid organs appear normal. Upper abdominal bowel loops are normal in caliber. IMPRESSION: 1. Increase in the size of the right upper lobe spiculated mass and the spiculated hilar mass as desc ribed above consistent with interval progression of disease. 2. Questionable filling defect within the right brachiocephalic vein raising the suspicion for the pr esence of intraluminal thrombus or tumor thrombus. 3. New mediastinal adenopathy consistent with dannielle metastasis. 4. Aortic and coronary artery atheromatous calcifications. Reviewed by: Areli Mcwilliams MD on 02/27/2020 1:45 PM PDT Approved by: Areli Mcwilliams MD on 02/27/2020 1:45 PM PDT Station ID: [id number]
== END 2020-02-27 10:47 | disposition home or self-care (01) ==
LOC: DI 10:46
PROVIDERS: ATTEND Family Medicine
DX: R91.1 Solitary pulmonary nodule (principal); R59.0 Localized enlarged lymph nodes
CPT/HCPCS: 71260; Q9967